=== PATIENT | male | born 1950 | race Caucasian/White ===

== ENCOUNTER 2018-05-18 16:13 | Observation (INO) ==
[2018-05-18] MEDS ORDERED: TUSSIONEX PENNKINETIC SUSP PO PRN (17:09)
--- NOTE | 2018-05-18 17:26 | DR.H&P ---
H&P - History & Physical for Day of: H&P Date: 05/18/18 - Chief Complaint Chief Complaint: SOB, COUGH, WHEEZING, CHEST PRESSURE - History of Present Illness History of Present Illness: PT 68 WM DIRECT ADMIT FROM DR JAUREGUI'S OFFICE WITH CO CP,SOB, COUGH AND WHEEZING, LOWER EXTREMITY REDNESS AND PAIN. PT HAS COPD AND TAKEN 2 ROUNDS OF ATBX ORAL AND HAD ROCEPHIN AND STEROID INJECTIONS IN THE OFFICE WITHOUT IMPROVEMENT. PT ALSO HAS BILATERAL LE EDEMA AND REDNESS. PT DENIES ANY HX OF CAD OR CHF. PT PPD SMOKER AND DAILY ETOH USE. - Past Medical History Past Medical History: COPD - Past Surgical History Surgical History: Cholecystectomy - Social History Does patient currently use any type of tobacco product: Yes Have you used tobacco products in the last 12 months: Yes Type of Tobacco Use: Cigarettes Does any household member use tobacco: Yes Alcohol Use: DAILY Drug Use: None - Medications Home Medications: No Known Drug Allergies Allergy (Verified 05/18/18 17:18) - Review of Systems Constitutional: Weakness Eyes: No Symptoms Reported ENT: No Symptoms Reported Respiratory: Shortness of Breath, SOB with Excertion, Sputum, Wheezing Cardiovascular: Chest Pain, Edema Gastrointestinal: No Symptoms Reported Genitourinary: No Symptoms Reported Musculoskeletal: Leg Pain Skin: Rash (REDNESS TO LEGS) Neurological: No Symptoms Reported - Physical Exam Vital Signs: Blood Pressure [Left Arm] 110/55 Blood Pressure [Right Arm] 126/75 Blood Pressure 138/77 Oriented: Normal Eyes: Normal Ear: Normal Nose: Normal Throat: Normal Respiratory: RLL Diminished, LLL Diminished Cardiovascular: Normal : Normal Auscultation: Bowel Sounds: Normal Palpation: Normal Tenderness: Normal Skin: Red (BILATERAL LOWER EXTREMITY REDNESS, TENDERNESS, EDEMA), Tender Musculoskeletal: Right, Left, Swelling, Tender Psychiatric: Anxiety Affect: Anxious Speech Pattern: Clear, Appropriate - Assessment/Plan (1) COPD exacerbation Status: Acute Plan: ADMIT, ICU STEP DOWN, PNEUMONIA PROTOCOL. BLOOD AND SPUTUM CULTURE COLLECTED ON ADMISSON. CXR, RESP CONSULT, SUPPLEMENTAL O2 PRN. CE AND EKG ON ADMISSION. SOLU MEDROL IV, CT CHEST WITH CONTRAST Q AM. WITHDRAWL PRECAUTIONS , PRN LIBRIUM. NICOTINE PATCH (2) SOB (shortness of breath) Status: Acute (3) Chest pain Status: Acute - Allergies Allergies/Adverse Reactions: Allergies Allergy/AdvReac Type Severity Reaction Status Date / Time No Known Drug Allergies Allergy Verified 05/18/18 17:18
[2018-05-18] MEDS ORDERED: NS 1/2 1000 ML IV 1,000 ML IV ONE (17:29)
[2018-05-18] MEDS ORDERED: ATARAX TAB 25 MG PO PRN (17:38)
[2018-05-18] MEDS ORDERED: LIBRIUM PO PRN (17:38)
[2018-05-18 17:40] LABS: BASOPHILS # (AUTO) 0.1 X10^3/uL (0.0-0.1); EOSINOPHILS # (AUTO) 0.1 x10^3/uL (0.0-0.2); EOSINOPHILS % (AUTO) 1.1 % (0.9-2.9); HEMOGLOBIN 17.4 g/dL (13.5-18.0); LYMPHOCYTES # (AUTO) 2.1 X10^3/uL (1.3-2.9); LYMPHOCYTES % (AUTO) 20.6 % (21.0-51.0); MEAN CORPUSCULAR HEMOGLOBIN 30.4 pg (27.0-34.0); MEAN CORPUSCULAR HGB CONC 34.2 g/dL (33.0-35.0); MEAN CORPUSCULAR VOLUME 89.1 fL (80.0-100.0); MEAN PLATELET VOLUME 8.7 fL (7.4-11.0); MONOCYTES # (AUTO) 0.8 x10^3/uL (0.3-0.8); MONOCYTES % (AUTO) 8.1 % (0.0-13.0); NEUTROPHILS # (AUTO) 7.2 x10^3/uL (2.2-4.8); NEUTROPHILS % (AUTO) 69.2 % (42.0-75.0); PLATELET COUNT 183 X10^3/uL (150.0-450.0); RED BLOOD COUNT 5.73 X10^6/uL (4.7-6.0); RED CELL DISTRIBUTION WIDTH 14.6 % (11.6-16.5); WHITE BLOOD COUNT 10.4 X10^3/uL (3.6-10.0)
[2018-05-18] MEDS: SOLU-Medrol 125 MG VIAL IVP SCH ×2 (17:50→21:35)
[2018-05-18] MEDS: LEVAQUIN PREMIX IV 750 MG 750 MG/150 ML BAG IV SCH (17:50)
[2018-05-18] MEDS: NS 1/2 1000 ML IV 1,000 ML IV SCH (17:50)
[2018-05-18 17:55] LABS: ALANINE AMINOTRANSFERASE 34 Units/L (12-78); ALBUMIN 3.6 g/dL (3.4-5.0); ALKALINE PHOSPHATASE 60 Units/L (46-116); ASPARTATE AMINO TRANSFERASE 25 Units/L (15-37); BLOOD UREA NITROGEN 19 mg/dL (7-18); CALCIUM 8.8 mg/dL (8.5-10.1); CARBON DIOXIDE 32.6 mmol/L (21-32); CHLORIDE 101 mmol/L (98-107); CREATININE 1.06 mg/dL (0.70-1.30); SODIUM 139 mmol/L (136-145); TOTAL PROTEIN 6.9 g/dL (6.4-8.2); eGFR NON BLACK RACES > 60 (>60)
[2018-05-18 18:08] VITALS: BMI 35.9
[2018-05-18 18:18] LABS: ABG BASE EXCESS 7.3 mmol/L (-2.0-2.0)
[2018-05-18 18:19] LABS: ABG ALLEN TEST POS; ABG HCO3 33.1 mmol/L (22-26)
[2018-05-18 18:22] LABS: CKMB % 2.6 % (<4); CREATINE KINASE 227 Units/L (39-308); TROPONIN I < 0.02 ng/mL (0-1.5)
--- NOTE | 2018-05-18 19:23 | RAD ---
HISTORY: Acute shortness of breath Study: Two-view chest Comparison: None Findings: The trachea is midline. The cardiac silhouette is unremarkable. The lungs demonstrate a right-sided effusion. Left lung appears clear.. The bony thorax is unremarkable. IMPRESSION: 1. Right-sided pleural. Reported By:
[2018-05-18] MEDS: ROBITUSSIN DM PO SCH (21:34)
[2018-05-18] MEDS: ZOSYN VIAL 4.5 GRAMS 4.5 G in NS 100 ML IV + SPIKE MINIBAG* 100 ML IV SCH ×2 (21:34→21:35)
[2018-05-18] MEDS: BROVANA IN SCH (21:49)
[2018-05-18] MEDS: PULMICORT NEB TX 0.5 MG NEB SCH (21:49)
[2018-05-18] MEDS: DUONEB 0.5 MG/3 MG NEB SCH (21:49)
[2018-05-18 22:05] LABS: BILIRUBIN,URINE NEGATIVE (NEGATIVE); BLOOD/HEMOGLOBIN,URINE 1+ (NEGATIVE); GLUCOSE, URINE NEGATIVE (NEGATIVE); KETONES,URINE NEGATIVE (NEGATIVE); LEUKOCYTE ESTERASE ,URINE 1+ (NEGATIVE); NITRITES,URINE NEGATIVE (NEGATIVE); PROTEIN,URINE 3+ (NEGATIVE); UROBILINOGEN,URINE NORMAL (NORMAL)
[2018-05-18 22:14] LABS: APPEARANCE,URINE SLIGHTLY HAZY (CLEAR); BACTERIA,URINE TRACE /HPF (NEGATIVE); COLOR,URINE YELLOW (YELLOW); RBC,URINE 0-2 /HPF (NONE SEEN); SQUAMOUS EPITHELIAL CELL,UR RARE /HPF (NEGATIVE)
[2018-05-18 22:15] LABS: AMORPHOUS SEDIMENT,UR TRACE /HPF (NEGATIVE); MUCUS,URINE FEW /HPF (NEGATIVE)
[2018-05-19] MEDS ORDERED: NS 1/2 1000 ML IV 1,000 ML IV ONE (00:59)
[2018-05-19] MEDS: DUONEB 0.5 MG/3 MG NEB SCH ×4 (01:30→12:05)
[2018-05-19] MEDS: ZOSYN VIAL 4.5 GRAMS 4.5 G in NS 100 ML IV + SPIKE MINIBAG* 100 ML IV SCH (05:29)
[2018-05-19] MEDS: SOLU-Medrol 125 MG VIAL IVP SCH (05:29)
[2018-05-19] MEDS: NS 1/2 1000 ML IV 1,000 ML IV SCH ×2 (05:30→07:28)
[2018-05-19 05:33] LABS: BASOPHILS % (AUTO) 0.2 % (0.2-1.0); HEMATOCRIT 50.6 % (42.0-54.0); HEMOGLOBIN 16.9 g/dL (13.5-18.0); LYMPHOCYTES # (AUTO) 0.6 X10^3/uL (1.3-2.9); LYMPHOCYTES % (AUTO) 7.5 % (21.0-51.0); MEAN CORPUSCULAR HEMOGLOBIN 29.9 pg (27.0-34.0); MEAN CORPUSCULAR HGB CONC 33.4 g/dL (33.0-35.0); MEAN CORPUSCULAR VOLUME 89.6 fL (80.0-100.0); MEAN PLATELET VOLUME 9.1 fL (7.4-11.0); MONOCYTES # (AUTO) 0 x10^3/uL (0.3-0.8); MONOCYTES % (AUTO) 0.4 % (0.0-13.0); NEUTROPHILS # (AUTO) 7.7 x10^3/uL (2.2-4.8); NEUTROPHILS % (AUTO) 91.9 % (42.0-75.0); PLATELET COUNT 172 X10^3/uL (150.0-450.0); RED BLOOD COUNT 5.64 X10^6/uL (4.7-6.0); RED CELL DISTRIBUTION WIDTH 14.3 % (11.6-16.5); WHITE BLOOD COUNT 8.4 X10^3/uL (3.6-10.0)
[2018-05-19 06:05] LABS: ALANINE AMINOTRANSFERASE 29 Units/L (12-78); ALBUMIN 3.2 g/dL (3.4-5.0); ALKALINE PHOSPHATASE 58 Units/L (46-116); ASPARTATE AMINO TRANSFERASE 20 Units/L (15-37); BLOOD UREA NITROGEN 20 mg/dL (7-18); CALCIUM 8.3 mg/dL (8.5-10.1); CARBON DIOXIDE 29.3 mmol/L (21-32); CHLORIDE 103 mmol/L (98-107); COR CA(FOR HYPOALB) 8.9 mg/dL (8.5-10.1); COR NA(FOR HYPERGLY) 139 mmol/L (136-145); CREATININE 1.01 mg/dL (0.70-1.30); SODIUM 138 mmol/L (136-145); TOTAL PROTEIN 6.7 g/dL (6.4-8.2); eGFR NON BLACK RACES > 60 (>60)
[2018-05-19 06:19] LABS: BAND NEUTROPHILS % 2 % (0-10); PLATELET MORPHOLOGY COMMENT NORMAL (NORMAL)
[2018-05-19] MEDS ORDERED: NS 100 ML IV 100 ML IV ONE (06:26)
--- NOTE | 2018-05-19 07:19 | CT ---
HISTORY: Acute shortness of breath Study: CT chest with contrast Comparison: Plain film 05/18/2018 Technique: Axial post-contrast images with coronal and sagittal reformats. Dose reduction procedures were used with mA/kv adjusted for body size. Findings: Examination of the mediastinum demonstrated no evidence for mediastinal masses, enlarged mediastinal adenopathy, or enlarged hilar adenopathy. No pleural effusions are identified. No chest wall or axill mandie abnormality is identified. Those portions of the upper abdominal organs visualized were within no rmal limits. There is a benign calcification in the dome of the right lobe of the liver. Examination of the lung brandt demonstrated mild interstitial lung changes to be present. No alveolar infiltrates , areas of consolidation, nodules, masses, peribronchial thickening, or bronchiectasis is identified. IMPRESSION: Mild nonspecific interstitial lung changes Reported By:
[2018-05-19] MEDS: LEVAQUIN PREMIX IV 750 MG 750 MG/150 ML BAG IV SCH (08:02)
[2018-05-19] MEDS: ROBITUSSIN DM PO SCH ×2 (08:02→13:01)
[2018-05-19] MEDS ORDERED: NICOTINE PATCH TD SCH (09:00)
[2018-05-19] MEDS: BROVANA IN SCH (09:21)
[2018-05-19] MEDS: PULMICORT NEB TX 0.5 MG NEB SCH (09:21)
[2018-05-19 13:01] VITALS: BP 134/69
== END 2018-05-19 13:50 | disposition home or self-care (01) ==
LOC: ICU
PROVIDERS: ADMIT Internal Medicine; ATTEND Internal Medicine
CPT/HCPCS: 36415; 36600; 71020; 71046; 71260; 80053; 80320; 81001; 82550; 82553; 82803; 84484; 85025; 87040; 87070; 87077; 87186; 87205; 93005; 93010; 93306; 94640; 94669; 97161; A4222; G0378; G6040; J1956; J2543; J2930; J7050; J7620; J7626

== ENCOUNTER 2020-02-13 10:31 | Inpatient (IN) ==
--- NOTE | 2020-02-13 13:54 | RAD ---
HISTORYShortness of breathSTUDYCHEST, 1 [id number]/06/2019FINDINGSThere is a port present on the right. The heart is within normal limits in size. The herlinda are normal. Lung brandt are free of acute infiltrates. A small right pleural effusion may be present. Bony thorax is unremarkable.IMPRESSIONNo acute infiltratesBlunt right costophrenic angle suggestive of a small right pleural effusionElectronically signed by: ANDREY NGUYEN (Feb 13, 2020 13:52:58)
[2020-02-13 14:17] LABS: BASOPHILS # (AUTO) 0.1 X10^3/uL (0.0-0.1); BASOPHILS % (AUTO) 1.1 % (0.2-1.0); EOSINOPHILS # (AUTO) 0.1 x10^3/uL (0.0-0.2); LYMPHOCYTES # (AUTO) 1.1 X10^3/uL (1.3-2.9); MONOCYTES # (AUTO) 0.9 x10^3/uL (0.3-0.8); NEUTROPHILS # (AUTO) 2.6 x10^3/uL (2.2-4.8); PLATELET COUNT 77 X10^3/uL (150.0-450.0)
[2020-02-13] MEDS: LOVENOX INJ 100 MG SYR SC SCH (14:18)
[2020-02-13 14:21] LABS: EOSINOPHILS % (AUTO) 1.9 % (0.9-2.9); HEMATOCRIT 44.8 % (42.0-54.0); HEMOGLOBIN 15.1 g/dL (13.5-18.0); LYMPHOCYTES % (AUTO) 23.5 % (21.0-51.0); MEAN CORPUSCULAR HEMOGLOBIN 31.1 pg (27.0-34.0); MEAN CORPUSCULAR HGB CONC 33.7 g/dL (33.0-35.0); MEAN CORPUSCULAR VOLUME 92.1 fL (80.0-100.0); MEAN PLATELET VOLUME 7.9 fL (7.4-11.0); MONOCYTES % (AUTO) 19.1 % (0.0-13.0); NEUTROPHILS % (AUTO) 54.4 % (42.0-75.0); RED BLOOD COUNT 4.86 X10^6/uL (4.7-6.0); RED CELL DISTRIBUTION WIDTH 19.2 % (11.6-16.5)
[2020-02-13 14:24] LABS: ALANINE AMINOTRANSFERASE 32 Units/L (12-78); ALBUMIN 3.3 g/dL (3.4-5.0); ALKALINE PHOSPHATASE 53 Units/L (46-116); ASPARTATE AMINO TRANSFERASE 29 Units/L (15-37); BLOOD UREA NITROGEN 11 mg/dL (7-18); CALCIUM 9.1 mg/dL (8.5-10.1); CARBON DIOXIDE 28.8 mmol/L (21-32); CHLORIDE 102 mmol/L (98-107); COR CA(FOR HYPOALB) 9.7 mg/dL (8.5-10.1); CREATININE 0.88 mg/dL (0.70-1.30); SODIUM 139 mmol/L (136-145); TOTAL PROTEIN 6.4 g/dL (6.4-8.2); eGFR NON BLACK RACES > 60 (>60)
[2020-02-13 14:33] LABS: WHITE BLOOD COUNT 5.7 X10^3/uL (3.6-10.0)
[2020-02-13 14:34] LABS: ANISOCYTOSIS SLIGHT; BAND NEUTROPHILS % 1 % (0-10); PLATELET MORPHOLOGY COMMENT NORMAL (NORMAL)
[2020-02-13] MEDS ORDERED: NORCO 5/325 MG TAB PO PRN (16:23)
--- NOTE | 2020-02-13 16:35 | DR.H&P ---
H&P - History & Physical for Day of: H&P Date: 02/13/20 - Chief Complaint Chief Complaint: right upper arm redness, swelling to AC and tender - History of Present Illness History of Present Illness: PT IS 70WM DIRECT ADMIT WITH NEW RIGHT UPPER EXTREMIY DVT, CONFIRMED ON US. PT HAS COLON CANCER AND SEEN AT [facility] ON TUESDAY WITH LABS AND CT SCANS WITH IV SITE TO R AC. PT CO SEVERE TENDERNESS TO RIGHT AC WITH INCREASED SWELLING AND REDNESS. PT ADMITTED FOR TREATMENT OF ACUTE DVT, PHLEBITIS. - Past Medical History Past Medical History: COPD Additional Medical History: COLON CANCER - Past Surgical History Surgical History: Cholecystectomy - Social History Does patient currently use any type of tobacco product: Yes Have you used tobacco products in the last 12 months: Yes Type of Tobacco Use: Cigarettes Does any household member use tobacco: No Alcohol Use: None Drug Use: None Risks, benefits, and alternatives of opioids discussed: No Prescription drug monitoring program results: PDMP reviewed and no concerns identified - Medications Home Medications: No Known Drug Allergies Allergy (Verified 06/01/19 09:14) CONTINUE taking the following medications budesonide-formoterol [Symbicort] 1 inh INHALATION BID 02/13/20 [History] gabapentin 100 mg PO BID 02/13/20 [History] hydrocodone-acetaminophen 1 tab PO Q4H PRN 02/13/20 [History] multivitamin [Tab-A-Joel] 1 tab PO DAILY 02/13/20 [History] sucralfate 10 ml PO ACHS 02/13/20 [History] - Review of Systems Constitutional: No Symptoms Reported Eyes: No Symptoms Reported ENT: No Symptoms Reported Respiratory: No Symptoms Reported Cardiovascular: No Symptoms Reported Gastrointestinal: No Symptoms Reported Genitourinary: No Symptoms Reported Musculoskeletal: Arm Pain Skin: Other (REDNESS TO RIGHT AC) Neurological: No Symptoms Reported - Physical Exam Vital Signs: Temperature 98.7 F Pulse Rate [Left Brachial] 94 Respiratory Rate 20 Blood Pressure [Left Arm] 110/55 Blood Pressure [Right Arm] 126/75 Blood Pressure 103/59 O2 Sat by Pulse Oximetry 96 Oriented: Normal Eyes: Normal Nose: Normal Throat: Normal Respiratory: RLL Diminished, LLL Diminished Cardiovascular: Normal : Normal Auscultation: Bowel Sounds: Normal Palpation: Normal Tenderness: Normal Skin: Red, Tender Musculoskeletal: Right, Arm Psychiatric: Normal Mood Description: Anxious Affect: Anxious Speech Pattern: Clear, Appropriate - Assessment/Plan (1) Arm DVT (deep venous thromboembolism), acute Status: Acute Plan: ADMIT, PAIN CONTROL. LOVENOX, ADMISSION LABS CBC CMP PT INR. CXR ON ADMISSION, CONFIRM HOME MEDICATION (2) Phlebitis and thrombophlebitis of deep veins of upper extremities Status: Acute - Allergies Allergies/Adverse Reactions: Allergies Allergy/AdvReac Type Severity Reaction Status Date / Time No Known Drug Allergies Allergy Verified 06/01/19 09:14
[2020-02-13] MEDS: NEURONTIN CAP 100 MG PO SCH ×2 (16:41→20:13)
[2020-02-13 16:45] VITALS: BMI 34.8
[2020-02-13] MEDS: FLOMAX PO SCH (17:42)
[2020-02-13] MEDS: CARAFATE ORAL SUSP PO SCH ×2 (17:42→20:13)
[2020-02-13] MEDS: DUONEB 0.5 MG/3 MG (3 mL) NEB SCH ×2 (18:14→21:00)
[2020-02-13] MEDS: PULMICORT NEB TX 0.5 MG NEB SCH (21:00)
[2020-02-14] MEDS: LOVENOX INJ 100 MG SYR SC SCH ×2 (02:52→13:01)
[2020-02-14 05:38] LABS: BASOPHILS % (AUTO) 1.1 % (0.2-1.0); EOSINOPHILS # (AUTO) 0.1 x10^3/uL (0.0-0.2); EOSINOPHILS % (AUTO) 2.6 % (0.9-2.9); HEMATOCRIT 41.4 % (42.0-54.0); HEMOGLOBIN 13.7 g/dL (13.5-18.0); LYMPHOCYTES # (AUTO) 0.9 X10^3/uL (1.3-2.9); LYMPHOCYTES % (AUTO) 32.7 % (21.0-51.0); MEAN CORPUSCULAR HGB CONC 33.1 g/dL (33.0-35.0); MEAN CORPUSCULAR VOLUME 93.8 fL (80.0-100.0); MEAN PLATELET VOLUME 8.3 fL (7.4-11.0); MONOCYTES # (AUTO) 0.6 x10^3/uL (0.3-0.8); MONOCYTES % (AUTO) 24.3 % (0.0-13.0); NEUTROPHILS % (AUTO) 39.3 % (42.0-75.0); PLATELET COUNT 89 X10^3/uL (150.0-450.0); RED BLOOD COUNT 4.42 X10^6/uL (4.7-6.0); RED CELL DISTRIBUTION WIDTH 19.4 % (11.6-16.5); WHITE BLOOD COUNT 2.6 X10^3/uL (3.6-10.0)
[2020-02-14 05:50] LABS: ALANINE AMINOTRANSFERASE 30 Units/L (12-78); ALKALINE PHOSPHATASE 50 Units/L (46-116); ASPARTATE AMINO TRANSFERASE 25 Units/L (15-37); BLOOD UREA NITROGEN 11 mg/dL (7-18); CALCIUM 8.7 mg/dL (8.5-10.1); CARBON DIOXIDE 29.5 mmol/L (21-32); CHLORIDE 104 mmol/L (98-107); COR CA(FOR HYPOALB) 9.5 mg/dL (8.5-10.1); CREATININE 1.02 mg/dL (0.70-1.30); SODIUM 140 mmol/L (136-145); eGFR NON BLACK RACES > 60 (>60)
[2020-02-14] MEDS: CARAFATE ORAL SUSP PO SCH ×4 (05:51→20:41)
[2020-02-14 06:13] LABS: BAND NEUTROPHILS % 1 % (0-10); PLATELET MORPHOLOGY COMMENT NORMAL (NORMAL)
[2020-02-14] MEDS: FLOMAX PO SCH (08:18)
[2020-02-14] MEDS: NEURONTIN CAP 100 MG PO SCH ×2 (08:18→20:42)
[2020-02-14] MEDS: DUONEB 0.5 MG/3 MG (3 mL) NEB SCH ×4 (09:23→21:15)
[2020-02-14] MEDS: PULMICORT NEB TX 0.5 MG NEB SCH ×2 (09:23→21:15)
[2020-02-14] MEDS ORDERED: NS 500 ML IV 500 ML IV PRN (17:18)
[2020-02-14] MEDS ORDERED: NS 100 ML IV + SPIKE MINIBAG* 100 ML IV ONE (17:19)
[2020-02-14] MEDS ORDERED: TEFLARO IV ONE (17:19)
[2020-02-14] MEDS ORDERED: NS 500 ML IV 500 ML IV ONE (17:19)
[2020-02-14] MEDS: TEFLARO 600 MG in NS 100 ML IV + SPIKE MINIBAG* 100 ML IV SCH ×2 (17:23→22:07)
[2020-02-14] MEDS: ELIQUIS PO SCH (20:41)
[2020-02-15] MEDS: LOVENOX INJ 100 MG SYR SC SCH (01:56)
[2020-02-15] MEDS: CARAFATE ORAL SUSP PO SCH ×2 (05:39→13:50)
[2020-02-15 05:53] LABS: BASOPHILS % (AUTO) 0.8 % (0.2-1.0); EOSINOPHILS # (AUTO) 0.1 x10^3/uL (0.0-0.2); EOSINOPHILS % (AUTO) 2.4 % (0.9-2.9); HEMATOCRIT 41.2 % (42.0-54.0); HEMOGLOBIN 13.7 g/dL (13.5-18.0); LYMPHOCYTES # (AUTO) 0.9 X10^3/uL (1.3-2.9); LYMPHOCYTES % (AUTO) 33.9 % (21.0-51.0); MEAN CORPUSCULAR HEMOGLOBIN 31.1 pg (27.0-34.0); MEAN CORPUSCULAR HGB CONC 33.3 g/dL (33.0-35.0); MEAN CORPUSCULAR VOLUME 93.3 fL (80.0-100.0); MEAN PLATELET VOLUME 8.5 fL (7.4-11.0); MONOCYTES # (AUTO) 0.6 x10^3/uL (0.3-0.8); MONOCYTES % (AUTO) 25.3 % (0.0-13.0); NEUTROPHILS % (AUTO) 37.6 % (42.0-75.0); PLATELET COUNT 103 X10^3/uL (150.0-450.0); RED BLOOD COUNT 4.42 X10^6/uL (4.7-6.0); WHITE BLOOD COUNT 2.6 X10^3/uL (3.6-10.0)
[2020-02-15 06:06] LABS: ALANINE AMINOTRANSFERASE 30 Units/L (12-78); ALBUMIN 2.9 g/dL (3.4-5.0); ALKALINE PHOSPHATASE 48 Units/L (46-116); ASPARTATE AMINO TRANSFERASE 22 Units/L (15-37); BLOOD UREA NITROGEN 11 mg/dL (7-18); CALCIUM 8.5 mg/dL (8.5-10.1); CARBON DIOXIDE 26.9 mmol/L (21-32); CHLORIDE 104 mmol/L (98-107); COR CA(FOR HYPOALB) 9.4 mg/dL (8.5-10.1); CREATININE 0.99 mg/dL (0.70-1.30); SODIUM 140 mmol/L (136-145); TOTAL PROTEIN 5.9 g/dL (6.4-8.2); eGFR NON BLACK RACES > 60 (>60)
[2020-02-15 06:48] LABS: PLATELET MORPHOLOGY COMMENT NORMAL (NORMAL)
[2020-02-15] MEDS: DUONEB 0.5 MG/3 MG (3 mL) NEB SCH (08:15)
[2020-02-15] MEDS: PULMICORT NEB TX 0.5 MG NEB SCH (08:15)
[2020-02-15] MEDS: NEURONTIN CAP 100 MG PO SCH (09:18)
[2020-02-15] MEDS: ELIQUIS PO SCH (09:18)
[2020-02-15] MEDS: TEFLARO 600 MG in NS 100 ML IV + SPIKE MINIBAG* 100 ML IV SCH (09:18)
[2020-02-15] MEDS: FLOMAX PO SCH (09:18)
[2020-02-15 13:31] VITALS: BP 120/64
== END 2020-02-15 13:45 | disposition home or self-care (01) | DRG 301 ==
LOC: MED/SURG 12:48
PROVIDERS: ADMIT Internal Medicine; ATTEND Internal Medicine
DX: Z92.21 Personal history of antineoplastic chemotherapy; I82.621 Acute embolism and thrombosis of deep veins of right upper extremity; I80.8 Phlebitis and thrombophlebitis of other sites; R60.0 Localized edema; J44.9 Chronic obstructive pulmonary disease, unspecified; Z85.038 Personal history of other malignant neoplasm of large intestine

== ENCOUNTER 2020-04-17 15:03 | Observation (INO) ==
[2020-04-17 15:14] VITALS: BMI 34.9
--- NOTE | 2020-04-17 16:21 | DR.WEAKNES ---
HPI Time Seen Time Seen by Provider: 04/17/20 16:21 Primary Care Physician Primary Care Physician: BROCK LITTLEJOHN HPI Comment HPI Comment: PATIENT IS 70YR OLD MALE IN ER WITH HISTORY OF HAVING SYNCOPAL EPISODE AT HOME WHILE SITTING DOWN AT HIS COMPUTOR. DENIES FEVER, CHEST PAIN OR COUGH OR CONGESTION. HE IS WEAK AND SLIGHTLY DIZZY. HEADACHE PRESENT. NO BLURRED VISION. HISTORY OF COPD. Complaints Chief Complaint Doctors Comments: SITTING AT COMPUTOR , STARTED SHAKING AND THEN PASS OUT. Chief Complaint:: PATIENT STATES HE WAS SITTING AT THE COMPUTER AND STARTED SH AKING AND BLACKED OUT. PATIENT STATES HE CALLED HIS PCP AND THEY INSTRUCTED HIM TO COME TO THE ED FOR POSSIBLE STROKE. PT STATES HE HAS A LIGHT HEADACHE. Reviewed Nurses Notes Reviewed: Yes Source History Provided: Patient Mode of Arrival Mode of Arrival: Ambulatory Timing Onset of Chief Complaint: 04/17/20 Since onset, symptoms are:: Unchanged Symptom Onset: Known Duration Duration: Since Onset Duration: Minutes Context Onset: At rest Symptoms: Weakness History of: None Stroke Symptoms: Dizziness Location Weakness Location: Generalized Associated Signs and Symptoms Associated Signs and Symptoms: None PMH PMH Past Medical History: Yes Past Medical History: COPD Past Medical History Comment: BLOOD CLOTS COLON CANCER Past Surgical History: Yes Surgical History: Cholecystectomy, Tonsillectomy and Other Family History History of Family Medical Conditions: Yes Family Medical History: [place] Social History Does patient currently use any type of tobacco product: Yes Have you used tobacco products in the last 12 months: Yes Type of Tobacco Use: Cigarettes Does any household member use tobacco: No Alcohol Use: None Do you use any recreational Drugs:: No Lives With: Family and Significant Other Lives Where: Home Travel Risk Coronavirus risk:travel/contact w/high risk person: No Has patient experienced Coronavirus symptoms: No Infectious screening Have you traveled outside the country in the last 6 months?: No Isolation: Standard ROS Review of Systems Constitutional: See HPI, Fatigue and Loss of Appetite; negative Fever Eyes: No Symptoms Reported and See HPI; negative Blurred Vision and Diplopia ENTM: No Symptoms Reported and See HPI; negative Ear Pain, Nose Discharge, Nose Congestion and Throat Pain Respiratoy: See HPI, Short of Breath and Wheezing; negative Moist Cough Cardiovascular: No Symptoms Reported and See HPI; negative Chest Pain, Edema and Palpitations Gastrointestinal/Abdominal: No Symptoms Reported and See HPI; negative Abdominal Pain, Diarrhea, Nausea and Vomiting Genitourinary: No Symptoms Reported and See HPI; negative Dysuria, Frequency and Hematuria Neurological: See HPI, Headache, Weakness and Dizziness; negative Numbness and Speech Problem Musculoskeletal: No Symptoms Reported, See HPI and Back Pain; negative Chest wall Integumentary: No Symptoms Reported, See HPI, Change in Color and Juandice Hematologic/Lymphatic: No Symptoms Reported, See HPI, Easy Bleeding and Swollen Glands Endocrine: No Symptoms Reported and See HPI; negative Increased Thirst and Increased Urine Psychiatric: No Symptoms Reported and See HPI All Other Systems: Reviewed and Negative PE Vital Signs Vitals: Temperature 97.8 F Pulse Rate [Apical] 71 Pulse Rate 74 Respiratory Rate 18 Blood Pressure [Left Arm] 133/78 Blood Pressure 133/78 O2 Sat by Pulse Oximetry 91 General Limitations: No Limitations General Appearance: Alert and In No Apparent Distress Head Head Exam: Normal Inspection, Atraumatic and Normocephalic Head Exam Physical: Other (NONE NOTED.) Eyes Eye exam: Normal Appearance and PERRL; negative Scleral Icterus and Conjunctival Injection Eyelids: Normal Inspection: Bilateral Pupils: Regular, Round: Bilateral Sclera/Conjunctival: Normal Inspection: Bilateral Anterior Chamber: Normal Inspection: Bilateral ENT ENT Exam: Normal Exam, Normal Oropharynx, Normal External Ear Exam and TM's Nor mal Bilaterally Mouth Exam: Normal Inspection Throat Exam: Normal Inspection; negative Tonsillar Erythema, Tonsillomegaly and Tonsillar Exudate Neck Neck Exam: Normal Inspection and Trachea Midline; negative Tenderness and Lymphadenopathy Chest Chest Inspection: Normal Inspection and Symmetric Chest Wall Rise; negative Tenderness Respiratory Respiratory Exam: Normal Lung Sounds Bilat; negative Accessory Muscle Use, Chest Wall Tenderness and Respiratory Distress Respiratory Exam: Bilateral: Clear to Auscultation Cardiovascular Cardiovascular Exam: Regular Rate, Normal Rhythm and Normal Heart Sounds; negative Systolic Murmur and Diastolic Murmur Abdominal Exam Abdominal Exam: Normal Inspection, Normal Bowel Sounds and Soft; negative Tenderness Extremities Extremities Exam: Normal Inspection and Normal Capillary Refill; negative Tend erness and Calf Tenderness Back Back Exam: Normal Inspection; negative (R) CVA Tenderness, (L) CVA Tenderness and Paraspinal Tenderness Neurologic Neurological Exam: Alert, Oriented X3 and CN II-XII Intact; negative Motor Sensory Deficit Patient Oriented To: Person, Place and Time Speech: Fluid Speech and Receptive Aphasia Cranial Nerve Exam: EOM Function (II, III, IV, ): Normal, Facial Sensation (V): Normal, Facial Palsy (VII): Normal, Gag reflex (XI): Normal, Spinal Accessory Function (XI): Normal and Tongue Deviation: Normal Motor Strength - LUE: 5/5 Motor Strength - RUE: 5/5 Motor Strength - LLE: 5/5 Motor Strength - RLE: 5/5 Upper Motor Neuron Exam: Babinski Sign: Normal DTR: brachioradialis (L): 2+ and brachioradialis (R): 2+ Psychiatric Psychiatric Exam: Normal Affect and Normal Mood Skin Skin Exam: Warm, Dry, Intact and Normal Color MDM Additional Information Obtained Additional Information Obtained From: Old Records Differential Diagnosis Differential Diagnosis: CVA, Electrolyte Disorder, Hypoglycemia, Mass Lesion, TIA and Other COURSE Treatment Treatment: SEE ORDERS. Education/Counseling Education/Counseling: Patient Educated On: Diagnosis and Needs for Follow Up ROR Labs Reviewed Result Diagrams: 04/18/20 04:17 04/18/20 04:17 Laboratory: WBC 6.2 X10^3/uL (3.6-10.0) 04/17/20 16:45 RBC 5.13 X10^6/uL (4.7-6.0) 04/17/20 16:45 Hgb 15.4 g/dL (13.5-18.0) 04/17/20 16:45 Hct 47.5 % (42.0-54.0) 04/17/20 16:45 MCV 92.5 fL (80.0-100.0) 04/17/20 16:45 MCH 30.0 pg (27.0-34.0) 04/17/20 16:45 MCHC 32.5 g/dL (33.0-35.0) L 04/17/20 16:45 RDW 14.7 % (11.6-16.5) 04/17/20 16:45 Plt Count 159 X10^3/uL (150.0-450.0) 04/17/20 16:45 MPV 8.6 fL (7.4-11.0) 04/17/20 16:45 Neut % (Auto) 70.6 % (42.0-75.0) 04/17/20 16:45 Lymph % (Auto) 16.4 % (21.0-51.0) L 04/17/20 16:45 Talbot % (Auto) 10.6 % (0.0-13.0) 04/17/20 16:45 Eos % (Auto) 1.5 % (0.9-2.9) 04/17/20 16:45 Baso % (Auto) 0.9 % (0.2-1.0) 04/17/20 16:45 Neut # (Auto) 4.3 x10^3/uL (2.2-4.8) 04/17/20 16:45 Lymph # (Auto) 1.0 X10^3/uL (1.3-2.9) L 04/17/20 16:45 Talbot # (Auto) 0.6 x10^3/uL (0.3-0.8) 04/17/20 16:45 Eos # (Auto) 0.1 x10^3/uL (0.0-0.2) 04/17/20 16:45 Baso # (Auto) 0.1 X10^3/uL (0.0-0.1) 04/17/20 16:45 Absolute Nucleated RBC 0.0 /100WBC 04/17/20 16:45 Sodium 138 mmol/L (136-145) 04/17/20 16:45 Corrected Sodium TNP 04/17/20 16:45 Potassium 4.8 mmol/L (3.5-5.1) 04/17/20 16:45 Chloride 102 mmol/L (98-107) 04/17/20 16:45 Carbon Dioxide 29.1 mmol/L (21-32) 04/17/20 16:45 BUN 13 mg/dL (7-18) 04/17/20 16:45 Creatinine 0.51 mg/dL (0.70-1.30) L 04/17/20 16:45 Est GFR (MDRD) Af Amer > 60 (>60) 04/17/20 16:45 Est GFR (MDRD) Non-Af > 60 (>60) 04/17/20 16:45 Glucose 86 mg/dL (65-99) 04/17/20 16:45 Calcium 9.1 mg/dL (8.5-10.1) 04/17/20 16:45 Corrected Calcium TNP 04/17/20 16:45 Total Bilirubin 0.30 mg/dL (0.2-1.0) 04/17/20 16:45 AST 27 Units/L (15-37) 04/17/20 16:45 ALT 28 Units/L (12-78) 04/17/20 16:45 Alkaline Phosphatase 64 Units/L (46-116) 04/17/20 16:45 Creatine Kinase 337 Units/L (39-308) H 04/17/20 20:56 CK-MB (CK-2) 9.8 ng/mL (0-4.0) H* 04/17/20 20:56 CK/CKMB % Calc 2.9 % (<4) 04/17/20 20:56 Troponin I < 0.02 ng/mL (0-1.5) 04/17/20 20:56 Total Protein 7.0 g/dL (6.4-8.2) 04/17/20 16:45 Albumin 3.4 g/dL (3.4-5.0) 04/17/20 16:45 Globulin 3.6 g/dL (2.5-4.5) 04/17/20 16:45 Albumin/Globulin Ratio 0.9 Ratio (1.1-2.1) L 04/17/20 16:45 SARS-CoV-2 (PCR) Negative (NEGATIVE) 04/17/20 20:31 Opioid Opioid Risk Tool Age (Philip box if 16-45): No History of Preadolescent Sexual Abuse: No Total: 0 Total Score Risk Category: Low Risk Copyright: [facility] predicting aberrant behaviors Diagnosis Discharge Problem: Abnormal cardiac enzyme level, Abnormal EKG Episode of syncope Qualifiers: Syncope type: unspecified Qualified Code(s): R55 - Syncope and collapse Instructions Instructions: Syncope, [id number] Forms: Excuse From Work or School Precautions for COVID19 Patient Portal Social Distancing
--- NOTE | 2020-04-17 16:47 | RAD ---
HISTORYCPSTUDSIXTO RIVERA/LAT [id number]/29/2020FINDINGSThe trachea is midline. The cardiac silhouette is stable. Right-sided chest port unchanged. Hypoventilatory exam with chronic interstitial markings and no acute focal airspace disease.. The bony thorax is unremarkable.IMPRESSIONNo acute cardiopulmonary disease.Electronically signed by: ANDREY NGUYEN (Apr 17, 2020 16:46:34)
--- NOTE | 2020-04-17 16:51 | CT ---
HISTORY: Mental status changeStudy: CT brain without contrastComparison: NoneTechnique:Multiple axial images of the brain were obtained from the skull base to the vertex without administration of IV contrast. Automated dose control was utilized.Findings:The ventricles are borderline enlarged with diffuse mild prominence of the cortical sulci. There is mild periventricular low density bilaterally. No intracranial hemorrhage or edema is seen. There is no extra-axial fluid collection or mass. The bones are intact.IMPRESSION:Mild atrophy and mild chronic microischemic changes scattered in the deep white matter with no acute abnormality seen.Electronically signed by: JOSSE GREEN (Apr 17, 2020 16:50:01)
[2020-04-17 17:34] LABS: BASOPHILS # (AUTO) 0.1 X10^3/uL (0.0-0.1); BASOPHILS % (AUTO) 0.9 % (0.2-1.0); EOSINOPHILS # (AUTO) 0.1 x10^3/uL (0.0-0.2); EOSINOPHILS % (AUTO) 1.5 % (0.9-2.9); HEMATOCRIT 47.5 % (42.0-54.0); HEMOGLOBIN 15.4 g/dL (13.5-18.0); LYMPHOCYTES % (AUTO) 16.4 % (21.0-51.0); MEAN CORPUSCULAR HGB CONC 32.5 g/dL (33.0-35.0); MEAN CORPUSCULAR VOLUME 92.5 fL (80.0-100.0); MEAN PLATELET VOLUME 8.6 fL (7.4-11.0); MONOCYTES # (AUTO) 0.6 x10^3/uL (0.3-0.8); MONOCYTES % (AUTO) 10.6 % (0.0-13.0); NEUTROPHILS # (AUTO) 4.3 x10^3/uL (2.2-4.8); NEUTROPHILS % (AUTO) 70.6 % (42.0-75.0); PLATELET COUNT 159 X10^3/uL (150.0-450.0); RED BLOOD COUNT 5.13 X10^6/uL (4.7-6.0); RED CELL DISTRIBUTION WIDTH 14.7 % (11.6-16.5); WHITE BLOOD COUNT 6.2 X10^3/uL (3.6-10.0)
[2020-04-17 17:45] LABS: BLOOD UREA NITROGEN 13 mg/dL (7-18); CALCIUM 9.1 mg/dL (8.5-10.1); CARBON DIOXIDE 29.1 mmol/L (21-32); CHLORIDE 102 mmol/L (98-107); CREATININE 0.51 mg/dL (0.70-1.30); SODIUM 138 mmol/L (136-145); eGFR NON BLACK RACES > 60 (>60)
[2020-04-17 18:09] LABS: ALANINE AMINOTRANSFERASE 28 Units/L (12-78); ALBUMIN 3.4 g/dL (3.4-5.0); ALKALINE PHOSPHATASE 64 Units/L (46-116); ASPARTATE AMINO TRANSFERASE 27 Units/L (15-37); CREATINE KINASE 303 Units/L (39-308)
[2020-04-17 18:10] LABS: CKMB % 2.9 % (<4)
[2020-04-17 18:13] LABS: CREATINE KINASE MB 8.8 ng/mL (0-4.0)
[2020-04-17 22:21] LABS: CKMB % 2.9 % (<4); CREATINE KINASE 337 Units/L (39-308); TROPONIN I < 0.02 ng/mL (0-1.5)
[2020-04-17 22:22] LABS: CREATINE KINASE MB 9.8 ng/mL (0-4.0)
[2020-04-18] MEDS ORDERED: NS 1000 ML 1,000 ML IV SCH (02:34)
[2020-04-18] MEDS ORDERED: NS 1000 ML 1,000 ML ONE (03:52)
[2020-04-18 05:45] LABS: BASOPHILS % (AUTO) 0.6 % (0.2-1.0); EOSINOPHILS # (AUTO) 0.1 x10^3/uL (0.0-0.2); EOSINOPHILS % (AUTO) 1.8 % (0.9-2.9); HEMATOCRIT 45.5 % (42.0-54.0); LYMPHOCYTES # (AUTO) 0.8 X10^3/uL (1.3-2.9); LYMPHOCYTES % (AUTO) 12.6 % (21.0-51.0); MEAN CORPUSCULAR HEMOGLOBIN 30.4 pg (27.0-34.0); MEAN CORPUSCULAR HGB CONC 33.1 g/dL (33.0-35.0); MEAN CORPUSCULAR VOLUME 91.9 fL (80.0-100.0); MEAN PLATELET VOLUME 8.5 fL (7.4-11.0); MONOCYTES # (AUTO) 0.7 x10^3/uL (0.3-0.8); MONOCYTES % (AUTO) 11.4 % (0.0-13.0); NEUTROPHILS # (AUTO) 4.5 x10^3/uL (2.2-4.8); NEUTROPHILS % (AUTO) 73.6 % (42.0-75.0); PLATELET COUNT 187 X10^3/uL (150.0-450.0); RED BLOOD COUNT 4.94 X10^6/uL (4.7-6.0); RED CELL DISTRIBUTION WIDTH 14.6 % (11.6-16.5); WHITE BLOOD COUNT 6.1 X10^3/uL (3.6-10.0)
[2020-04-18 06:40] LABS: ALANINE AMINOTRANSFERASE 26 Units/L (12-78); ALBUMIN 3.3 g/dL (3.4-5.0); ALKALINE PHOSPHATASE 62 Units/L (46-116); ASPARTATE AMINO TRANSFERASE 22 Units/L (15-37); BLOOD UREA NITROGEN 10 mg/dL (7-18); CALCIUM 9.3 mg/dL (8.5-10.1); CARBON DIOXIDE 29.6 mmol/L (21-32); CHLORIDE 102 mmol/L (98-107); CHOL/HDL RATIO 3.5 (0.0-5.0); CHOLESTEROL 194 mg/dL (0-200); CKMB % 2.6 % (<4); COR CA(FOR HYPOALB) 9.9 mg/dL (8.5-10.1); CREATINE KINASE 312 Units/L (39-308); CREATININE 0.83 mg/dL (0.70-1.30); HDL CHOLESTEROL 55 mg/dL (40-60); MAGNESIUM 1.9 mg/dL (1.7-2.9); SODIUM 138 mmol/L (136-145); TOTAL PROTEIN 6.8 g/dL (6.4-8.2); TRIGLYCERIDES 57 mg/dL (0-150); TROPONIN I < 0.02 ng/mL (0-1.5); eGFR NON BLACK RACES > 60 (>60)
[2020-04-18] MEDS ORDERED: NORCO 5/325 MG TAB PO PRN (07:14)
[2020-04-18] MEDS ORDERED: XOPENEX 1.25 MG/3 ML NEBULE NEB SCH (07:45)
[2020-04-18] MEDS: FLOMAX PO SCH ×2 (08:20→09:24)
[2020-04-18] MEDS ORDERED: PATIENT'S HOME MEDICATION (Budesonide-Formoterol 1 INH) IN SCH (09:00)
[2020-04-18] MEDS ORDERED: PULMICORT NEB TX 0.5 MG NEB SCH (09:00)
[2020-04-18] MEDS ORDERED: ELIQUIS PO SCH (09:00)
[2020-04-18] MEDS ORDERED: NEURONTIN CAP 100 MG PO SCH (09:00)
[2020-04-18 09:37] LABS: ABG HCO3 34.2 mmol/L (22-26)
[2020-04-18 09:38] LABS: ABG ALLEN TEST POS
--- NOTE | 2020-04-18 11:41 | MRI ---
HISTORYTIA, RO CVASTUDYBRAIN W/O CONCOMPARISONCT yesterdayTECHNIQUEMultiplanar multi-sequence MRI of the brain was obtained utilizing standard departmental protocol. Sagittal and axial T1 weighted images were obtained. Axial T2 and flair weighted images were performed as well. Axial diffusion weighted and ADC trace mapping was performed.FINDINGSThe midline structures appear unremarkable. The evaluation of the brain parenchyma demonstrates no abnormal signal characteristics to suggest intraparenchymal mass or hemorrhage. No extra-axial fluid collections are observed. The ventricular system appears symmetric and nondilated. The CP angle is normal in its appearance without brainstem mass or evidence for acoustic neuroma. The flow voids on both T1 and T2 weighted imaging appear unremarkable. Evaluation of the diffusion weighted imaging does not demonstrate abnormal signal characteristics to suggest acute ischemic change. Mild small vessel ischemic changes are noted in the periventricular white matter. The extracranial structures are unremarkable.IMPRESSIONMild small vessel ischemic changes with no evidence for acute/subacute stroke.Electronically signed by: SHIRLEY CORRALES (Apr 18, 2020 11:40:39)
[2020-04-18 13:05] VITALS: BP 108/54
--- NOTE | 2020-04-18 13:07 | VAS ---
HISTORYCAROTID STENOSISSTUDYCAROTID USCOMPARISONNoneTECHNIQUEMultiple treadwell scale and color flow Doppler images of the right and left carotid arterial system were obtained. The vertebral arterial system was evaluated as well.FINDINGSNormal color flow Doppler is seen throughout the right and left carotid arterial system. Scattered atherosclerotic changes are seen. No hemodynamically significant stenosis is seen based on velocity criteria. Right vertebral artery shows antegrade flow. Left vertebral artery was not seen..IMPRESSIONNo hemodynamically significant stenosis by Doppler criteria. Left vertebral artery not visible on this exam.Electronically signed by: Wu Gibbs (Apr 18, 2020 13:06:43)
[2020-04-18 14:41] LABS: CKMB % 2.3 % (<4); CREATINE KINASE 266 Units/L (39-308); TROPONIN I < 0.02 ng/mL (0-1.5)
== END 2020-04-18 15:00 | disposition home or self-care (01) ==
LOC: OBS 15:03 → ER 15:03 → OBS 23:48
PROVIDERS: ADMIT Family Medicine; ATTEND Internal Medicine
CPT/HCPCS: 36415; 36600; 70450; 70551; 71020; 71046; 80053; 80061; 82550; 82553; 82803; 83735; 84484; 85025; 85610; 85730; 87635; 93005; 93880; 94640; 94760; 99284; G0378; J7030; J7626

== ENCOUNTER 2020-07-29 21:31 | Inpatient (IN) ==
[2020-07-29 21:44] LABS: ABG BASE EXCESS 6.3 mmol/L (-2.0-2.0)
[2020-07-29] MEDS ORDERED: SOLU-Medrol 125 MG VIAL IVP ONE (21:46)
[2020-07-29] MEDS ORDERED: DUONEB 0.5 MG/3 MG (3 mL) NEB ONE ×2 (21:46→21:52)
--- NOTE | 2020-07-29 21:59 | DR.SOBA ---
HPI Time Seen Time Seen by Provider: 07/29/20 21:36 Primary Care Physician Primary Care Physician: EDY TAO Complaints Chief Complaint Doctors Comments: dyspnea x 1 month, Hx of copd and tobacco abuse Chief Complaint:: PT IN ED VIA WHEELCHAIR WITH C/O UNABLE TO BREATHE. COVID-19 Coronavirus risk:travel/contact w/high risk person: No Has patient experienced Coronavirus symptoms: Yes Coronavirus symptoms experienced: Coughing and Shortness of Breath Source History Provided: Patient Mode of Arrival Mode of Arrival: Wheelchair Timing Onset of Chief Complaint: 07/29/20 Duration Duration: Months Context Onset:: At Rest and With Light Exertion PE Risk Factors:: None History of:: COPD and DVT/PE Prehospital Care:: None Modifying Factors Worsens:: Exertion and Other (smoking) Improves:: Inhaler Associated Signs and Symptoms Associated Signs and Symptoms: Wheeze and Leg Swelling (chronic) If Chest Pain Quality: denies Sharp, Stabbing, Squeezing, Pressure like, Heavy, Crushing, Burning, Aching, Pleuritic and Other If Cough Cough: Nonproductive PMH PMH Past Medical History: Yes Past Medical History: COPD Past Medical History Comment: COLORECTAL CANCER 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 Past Surgical History: Yes Surgical History: Bowel Resection, Ortho Surgery and Tonsillectomy Past Surgical History Comment: BACK COLORECTAL Family History History of Family Medical Conditions: Yes Family Medical History: [place] Social History Does patient currently use any type of tobacco product: Yes Have you used tobacco products in the last 12 months: Yes Type of Tobacco Use: Cigarettes Does any household member use tobacco: No Alcohol Use: None Do you use any recreational Drugs:: No Lives With: Family Lives Where: Home Travel Risk Coronavirus risk:travel/contact w/high risk person: No Has patient experienced Coronavirus symptoms: Yes Coronavirus symptoms experienced: Coughing and Shortness of Breath Infectious screening In the last 2 months have you had wt loss of >10#?: NO Have you had fever, night sweats or hemotysis?: No Have you traveled outside the country in the last 6 months?: No Isolation: Droplet ROS Review of Systems Constitutional: Weakness Eyes: No Symptoms Reported ENTM: No Symptoms Reported Respiratoy: Non-Productive Cough, Short of Breath and Wheezing Gastrointestinal/Abdominal: No Symptoms Reported Genitourinary: No Symptoms Reported Neurological: No Symptoms Reported Musculoskeletal: No Symptoms Reported Integumentary: No Symptoms Reported Endocrine: No Symptoms Reported Psychiatric: Depression All Other Systems: Reviewed and Negative PE Vital Signs Vitals: Temperature 98.1 F Pulse Rate 84 Respiratory Rate 16 Blood Pressure [Left Arm] 108/54 Blood Pressure 123/56 O2 Sat by Pulse Oximetry 88 General Limitations: No Limitations General Appearance: Alert and In No Apparent Distress Head Head Exam: Normal Inspection, Atraumatic and Normocephalic Eyes Eye exam: Normal Appearance and EOMI ENT ENT Exam: Normal Exam and Normal Oropharynx Neck Neck Exam: Normal Inspection, Full ROM and Trachea Midline Chest Chest Inspection: Normal Inspection and Symmetric Chest Wall Rise Respiratory Respiratory Exam: negative Accessory Muscle Use Respiratory Exam: Bilateral: Wheezing and Bilateral: Decreased Breath Sounds, Upper: Wheezing and Lower: Wheezing and Lower: Decreased Breath Sounds Cardiovascular Cardiovascular Exam: Regular Rate and Normal Rhythm Abdominal Exam Abdominal Exam: Normal Inspection, Normal Bowel Sounds and Soft Extremities Extremities Exam: Normal Inspection and Full ROM Back Back Exam: Normal Inspection and Full ROM Neurologic Neurological Exam: Alert, Oriented X3 and CN II-XII Intact Psychiatric Psychiatric Exam: Flat Affect Skin Skin Exam: Pallor ROR Labs Reviewed Result Diagrams: 07/29/20 21:55 07/29/20 21:55 Laboratory: WBC 6.5 X10^3/uL (3.6-10.0) 07/29/20 21:55 RBC 5.34 X10^6/uL (4.7-6.0) 07/29/20 21:55 Hgb 15.4 g/dL (13.5-18.0) 07/29/20 21:55 Hct 46.3 % (42.0-54.0) 07/29/20 21:55 MCV 86.7 fL (80.0-100.0) 07/29/20 21:55 MCH 28.9 pg (27.0-34.0) 07/29/20 21:55 MCHC 33.4 g/dL (33.0-35.0) 07/29/20 21:55 RDW 15.0 % (11.6-16.5) 07/29/20 21:55 Plt Count 221 X10^3/uL (150.0-450.0) 07/29/20 21:55 MPV 7.4 fL (7.4-11.0) 07/29/20 21:55 Neut % (Auto) 67.1 % (42.0-75.0) 07/29/20 21:55 Lymph % (Auto) 19.0 % (21.0-51.0) L 07/29/20 21:55 [place] % (Auto) 11.5 % (0.0-13.0) 07/29/20 21:55 Eos % (Auto) 1.7 % (0.9-2.9) 07/29/20 21:55 Baso % (Auto) 0.7 % (0.2-1.0) 07/29/20 21:55 Neut # (Auto) 4.4 x10^3/uL (2.2-4.8) 07/29/20 21:55 Lymph # (Auto) 1.2 X10^3/uL (1.3-2.9) L 07/29/20 21:55 [place] # (Auto) 0.7 x10^3/uL (0.3-0.8) 07/29/20 21:55 Eos # (Auto) 0.1 x10^3/uL (0.0-0.2) 07/29/20 21:55 Baso # (Auto) 0.0 X10^3/uL (0.0-0.1) 07/29/20 21:55 Absolute Nucleated RBC 0.0 /100WBC 07/29/20 21:55 Sample Site Rra 07/29/20 22:58 ABG pH 7.390 (7.35-7.45) 07/29/20 22:58 ABG pCO2 54.0 mmHg (35.0-45.0) H* 07/29/20 22:58 ABG pO2 99.0 mmHg (80.0-100.0) 07/29/20 22:58 ABG HCO3 32.7 mmol/L (22-26) H* 07/29/20 22:58 ABG O2 Saturation 98.0 % (90-100) 07/29/20 22:58 ABG Base Excess 6.3 mmol/L (-2.0-2.0) H 07/29/20 22:58 Kris Test Pos 07/29/20 22:58 A-a Gradient 90.0 mmHg 07/29/20 22:58 FiO2 36.0 07/29/20 22:58 Blood Gas Comments Pt halima well eb 07/29/20 22:58 Sodium 144 mmol/L (136-145) 07/29/20 21:55 Corrected Sodium 145 mmol/L (136-145) 07/29/20 21:55 Potassium 3.7 mmol/L (3.5-5.1) 07/29/20 21:55 Chloride 103 mmol/L (98-107) 07/29/20 21:55 Carbon Dioxide 32.2 mmol/L (21-32) H 07/29/20 21:55 BUN 13 mg/dL (7-18) 07/29/20 21:55 Creatinine 1.06 mg/dL (0.70-1.30) 07/29/20 21:55 Est GFR (MDRD) Af Amer > 60 (>60) 07/29/20 21:55 Est GFR (MDRD) Non-Af > 60 (>60) 07/29/20 21:55 Glucose 131 mg/dL (65-99) H 07/29/20 21:55 Calcium 9.1 mg/dL (8.5-10.1) 07/29/20 21:55 Corrected Calcium 9.7 mg/dL (8.5-10.1) 07/29/20 21:55 Magnesium 2.0 mg/dL (1.7-2.9) 07/29/20 21:55 Total Bilirubin 0.30 mg/dL (0.2-1.0) 07/29/20 21:55 AST 31 Units/L (15-37) 07/29/20 21:55 ALT 30 Units/L (12-78) 07/29/20 21:55 Alkaline Phosphatase 57 Units/L (46-116) 07/29/20 21:55 Creatine Kinase 510 Units/L (39-308) H 07/29/20 21:55 CK-MB (CK-2) 17.0 ng/mL (0-4.0) H* 07/29/20 21:55 CK/CKMB % Calc 3.3 % (<4) 07/29/20 21:55 Troponin I < 0.02 ng/mL (0-1.5) 07/29/20 21:55 B-Natriuretic Peptide 54.2 pg/mL (0-79) 07/29/20 21:55 Total Protein 7.2 g/dL (6.4-8.2) 07/29/20 21:55 Albumin 3.2 g/dL (3.4-5.0) L 07/29/20 21:55 Globulin 4.0 g/dL (2.5-4.5) 07/29/20 21:55 Albumin/Globulin Ratio 0.8 Ratio (1.1-2.1) L 07/29/20 21:55 EKG Rate: 84 [place]: Normal Rhythm: NSR Block: None Hypertrophy: LAE ST: Ant (boderline ST changes) Opioid Opioid Risk Tool Age (Philip box if 16-45): No History of Preadolescent Sexual Abuse: No Total: 0 Total Score Risk Category: Low Risk Copyright: Jose Miguel FAN predicting aberrant behaviors
[2020-07-29] MEDS ORDERED: SOLU-Medrol 125 MG VIAL ONE (22:02)
[2020-07-29 22:05] LABS: BASOPHILS % (AUTO) 0.7 % (0.2-1.0); EOSINOPHILS # (AUTO) 0.1 x10^3/uL (0.0-0.2); EOSINOPHILS % (AUTO) 1.7 % (0.9-2.9); HEMATOCRIT 46.3 % (42.0-54.0); HEMOGLOBIN 15.4 g/dL (13.5-18.0); LYMPHOCYTES # (AUTO) 1.2 X10^3/uL (1.3-2.9); MEAN CORPUSCULAR HEMOGLOBIN 28.9 pg (27.0-34.0); MEAN CORPUSCULAR HGB CONC 33.4 g/dL (33.0-35.0); MEAN CORPUSCULAR VOLUME 86.7 fL (80.0-100.0); MEAN PLATELET VOLUME 7.4 fL (7.4-11.0); MONOCYTES # (AUTO) 0.7 x10^3/uL (0.3-0.8); MONOCYTES % (AUTO) 11.5 % (0.0-13.0); NEUTROPHILS # (AUTO) 4.4 x10^3/uL (2.2-4.8); NEUTROPHILS % (AUTO) 67.1 % (42.0-75.0); PLATELET COUNT 221 X10^3/uL (150.0-450.0); RED BLOOD COUNT 5.34 X10^6/uL (4.7-6.0); WHITE BLOOD COUNT 6.5 X10^3/uL (3.6-10.0)
[2020-07-29 22:18] LABS: BLOOD UREA NITROGEN 13 mg/dL (7-18); CALCIUM 9.1 mg/dL (8.5-10.1); CARBON DIOXIDE 32.2 mmol/L (21-32); CHLORIDE 103 mmol/L (98-107); COR NA(FOR HYPERGLY) 145 mmol/L (136-145); CREATININE 1.06 mg/dL (0.70-1.30); SODIUM 144 mmol/L (136-145); TROPONIN I < 0.02 ng/mL (0-1.5); eGFR NON BLACK RACES > 60 (>60)
[2020-07-29 22:41] LABS: ALANINE AMINOTRANSFERASE 30 Units/L (12-78); ALBUMIN 3.2 g/dL (3.4-5.0); ALKALINE PHOSPHATASE 57 Units/L (46-116); ASPARTATE AMINO TRANSFERASE 31 Units/L (15-37); CKMB % 3.3 % (<4); COR CA(FOR HYPOALB) 9.7 mg/dL (8.5-10.1); CREATINE KINASE 510 Units/L (39-308); TOTAL PROTEIN 7.2 g/dL (6.4-8.2)
[2020-07-29 23:01] LABS: ABG BASE EXCESS 6.3 mmol/L (-2.0-2.0)
[2020-07-29 23:02] LABS: ABG ALLEN TEST POS; ABG HCO3 32.7 mmol/L (22-26)
[2020-07-29] MEDS ORDERED: ROCEPHIN VIAL 1 GRAM 1 G in NS 100 ML IV + SPIKE MINIBAG* 100 ML IV SCH (23:42)
[2020-07-29] MEDS ORDERED: NS 100 ML IV + SPIKE MINIBAG* 100 ML IV ONE (23:59)
[2020-07-29] MEDS ORDERED: ROCEPHIN VIAL 1 GRAM ONE (23:59)
[2020-07-30] MEDS ORDERED: DUONEB 0.5 MG/3 MG (3 mL) NEB SCH (01:00)
[2020-07-30] MEDS ORDERED: DUONEB 0.5 MG/3 MG (3 mL) NEB ONE (01:26)
[2020-07-30] MEDS: DUONEB 0.5 MG/3 MG (3 mL) NEB SCH ×6 (01:40→21:25)
[2020-07-30 02:17] VITALS: BMI 37.5
--- NOTE | 2020-07-30 03:23 | RAD ---
STUDY: CHEST, 1 VIEWCOMPARISON: April 17, 2020HISTORY: SOBFINDINGS:Right-sided chemotherapy port is stable. Cardiomediastinal contour is stable. Small right pleural effusion is stable. No left-sided pleural effusion is seen. Subsegmental atelectasis is noted. No gross pneumothorax is identified.IMPRESSION:There is no significant change from prior studyElectronically signed by: Jose Moeller (Jul 30, 2020 03:22:36)
[2020-07-30] MEDS: SOLU-Medrol 125 MG VIAL IVP SCH ×3 (06:00→21:25)
[2020-07-30] MEDS: FLOMAX PO SCH (11:00)
[2020-07-30] MEDS: PROTONIX INJ 40 MG VIAL IVP SCH (11:00)
[2020-07-30] MEDS: VIBRAMYCIN 100 MG in D5W 250 ML IV 250 ML IV SCH ×2 (11:00→21:24)
[2020-07-30 17:35] LABS: BILIRUBIN,URINE NEGATIVE (NEGATIVE); BLOOD/HEMOGLOBIN,URINE 1+ (NEGATIVE); GLUCOSE, URINE NEGATIVE (NEGATIVE); KETONES,URINE NEGATIVE (NEGATIVE); LEUKOCYTE ESTERASE ,URINE NEGATIVE (NEGATIVE); NITRITES,URINE NEGATIVE (NEGATIVE); PROTEIN,URINE 3+ (NEGATIVE); UROBILINOGEN,URINE NORMAL (NORMAL)
[2020-07-30 17:40] LABS: APPEARANCE,URINE HAZY (CLEAR); COLOR,URINE YELLOW (YELLOW)
[2020-07-30 17:46] LABS: BACTERIA,URINE TRACE /HPF (NEGATIVE); RBC,URINE NONE SEEN /HPF (0-3); SQUAMOUS EPITHELIAL CELL,UR FEW /HPF (NEGATIVE)
[2020-07-30 17:47] LABS: CALCIUM OXALATE CRYSTALS,UR FEW /HPF (NEGATIVE); HYALINE CASTS, URINE FEW /LPF (NEGATIVE); MUCUS,URINE FEW /HPF (NEGATIVE)
--- NOTE | 2020-07-30 19:04 | DR.H&P ---
H&P - History & Physical for Day of: H&P Date: 07/30/20 - Chief Complaint Chief Complaint: sob, weakness - History of Present Illness History of Present Illness: PT IS 70 WM ER ADMISSION WITH SOB. PT HAD HX OF COPD AND HAD TAKEN PO ANTIBIOTICS WITH USE OF DUO NEBS WITHOUT IMPROVEMENT. PT HAS RECEIVED IM ROCEPHIN IN OFFICE OVER PAST 2 WEEKS AND NEGATIVE COVID SWAB, WITH NO IMPROVEMENT. PT CO O2 SAT IN 70S AT HOME WITH CONFUSION PER SPOUSE. PT ADMITTED FOR TREATMENT OF ACUTE HYPOXIA. - Past Medical History Past Medical History: COPD Additional Medical History: COLON CANCER, DVT - Past Surgical History Surgical History: Bowel Resection, Cholecystectomy, Ortho Surgery, Tonsillectomy - Family History Family Medical History: [place] - Social History Does patient currently use any type of tobacco product: Yes Have you used tobacco products in the last 12 months: Yes Type of Tobacco Use: Cigarettes Does any household member use tobacco: No Alcohol Use: None Drug Use: None - Medications Home Medications: No Known Drug Allergies Allergy (Verified 06/01/19 09:14) CONTINUE taking the following medications doxycycline hyclate 100 mg PO BID 07/30/20 [History] - Review of Systems Constitutional: Weakness Eyes: No Symptoms Reported ENT: No Symptoms Reported Respiratory: Cough, Shortness of Breath, SOB with Excertion, Wheezing Cardiovascular: Palpitations, Edema Gastrointestinal: Nausea Genitourinary: No Symptoms Reported Musculoskeletal: Back Pain Skin: No Symptoms Reported Neurological: Weakness, Confusion - Physical Exam Vital Signs: Temperature 97.5 F Pulse Rate [Left Radial] 104 Pulse Rate 70 Respiratory Rate 20 Blood Pressure [Left Arm] 142/77 Blood Pressure 123/56 O2 Sat by Pulse Oximetry 96 Oriented: Person Eyes: Normal Ear: Normal Nose: Normal Throat: Dry Respiratory: Diminished Throughout Cardiovascular: Normal, Edema : Normal Auscultation: Bowel Sounds: Normal Palpation: Normal Tenderness: Normal Skin: Decreased Turgur Musculoskeletal: Back:Lumbar Mood Description: Calm Speech Pattern: Clear, Appropriate - Assessment/Plan (1) Acute respiratory distress Status: Acute Plan: ADMIT, RESP THERAPY. SUPPLEMENTAL O2, BIPAP. IV ATBX, BLOOD AND SPUTUM CULTURES. BP CONTROL, IV HYDRATION. DUO NEBS, IV SOLU MEDROL, REPEAT AM CXR, ABG (2) COPD with acute exacerbation Status: Acute (3) [facility] current use of anticoagulant Status: Acute - Allergies Allergies/Adverse Reactions: Allergies Allergy/AdvReac Type Severity Reaction Status Date / Time No Known Drug Allergies Allergy Verified 06/01/19 09:14
[2020-07-30] MEDS: ELIQUIS PO SCH (21:24)
[2020-07-30] MEDS: ROCEPHIN VIAL 1 GRAM 1 G in NS 100 ML IV + SPIKE MINIBAG* 100 ML IV SCH (21:24)
[2020-07-30] MEDS: NEURONTIN CAP 100 MG PO SCH (21:25)
[2020-07-30] MEDS: ROBITUSSIN DM PO PRN (21:30)
[2020-07-31] MEDS ORDERED: TUSSIONEX PENNKINETIC SUSP ONE (00:01)
[2020-07-31] MEDS: TUSSIONEX PENNKINETIC SUSP PO PRN ×2 (00:28→20:35)
[2020-07-31] MEDS: DUONEB 0.5 MG/3 MG (3 mL) NEB SCH ×6 (01:40→21:50)
[2020-07-31 04:28] LABS: BASOPHILS % (AUTO) 0.2 % (0.2-1.0); EOSINOPHILS % (AUTO) 0.1 % (0.9-2.9); HEMATOCRIT 46.1 % (42.0-54.0); HEMOGLOBIN 14.8 g/dL (13.5-18.0); LYMPHOCYTES # (AUTO) 0.3 X10^3/uL (1.3-2.9); LYMPHOCYTES % (AUTO) 2.5 % (21.0-51.0); MEAN CORPUSCULAR HEMOGLOBIN 28.5 pg (27.0-34.0); MEAN CORPUSCULAR HGB CONC 32.1 g/dL (33.0-35.0); MEAN PLATELET VOLUME 7.7 fL (7.4-11.0); MONOCYTES # (AUTO) 0.4 x10^3/uL (0.3-0.8); MONOCYTES % (AUTO) 3.1 % (0.0-13.0); NEUTROPHILS # (AUTO) 12.7 x10^3/uL (2.2-4.8); NEUTROPHILS % (AUTO) 94.1 % (42.0-75.0); PLATELET COUNT 204 X10^3/uL (150.0-450.0); RED BLOOD COUNT 5.19 X10^6/uL (4.7-6.0); RED CELL DISTRIBUTION WIDTH 15.3 % (11.6-16.5); WHITE BLOOD COUNT 13.5 X10^3/uL (3.6-10.0)
[2020-07-31 05:00] LABS: PLATELET MORPHOLOGY COMMENT NORMAL (NORMAL)
[2020-07-31 05:08] LABS: ALANINE AMINOTRANSFERASE 25 Units/L (12-78); ALKALINE PHOSPHATASE 52 Units/L (46-116); ASPARTATE AMINO TRANSFERASE 22 Units/L (15-37); BLOOD UREA NITROGEN 20 mg/dL (7-18); CALCIUM 9.5 mg/dL (8.5-10.1); CARBON DIOXIDE 32.6 mmol/L (21-32); CHLORIDE 104 mmol/L (98-107); CKMB % 3.2 % (<4); COR CA(FOR HYPOALB) 10.3 mg/dL (8.5-10.1); COR NA(FOR HYPERGLY) 145 mmol/L (136-145); CREATINE KINASE 398 Units/L (39-308); CREATININE 1.22 mg/dL (0.70-1.30); SODIUM 143 mmol/L (136-145); TOTAL PROTEIN 7.1 g/dL (6.4-8.2); TROPONIN I < 0.02 ng/mL (0-1.5); eGFR NON BLACK RACES > 60 (>60)
[2020-07-31 05:11] LABS: CREATINE KINASE MB 12.7 ng/mL (0-4.0)
[2020-07-31 05:41] LABS: ABG BASE EXCESS 9.9 mmol/L (-2.0-2.0)
[2020-07-31 05:43] LABS: ABG ALLEN TEST POS; ABG HCO3 38.1 mmol/L (22-26)
[2020-07-31] MEDS: SOLU-Medrol 125 MG VIAL IVP SCH ×3 (05:46→22:22)
--- NOTE | 2020-07-31 06:11 | RAD ---
HISTORYCOPDSTUDYCHEST, 1 [id number]/2020TECHNIQUEAP view of the chestFINDINGSRight chest wall port with tip in good position. The cardiac and mediastinal contours appear normal. Blunted right costophrenic sulcus is stable. Associated right base opacity likely atelectasis. No definite pneumothorax.IMPRESSIONNo significant change. Suspect small right pleural effusion with associated atelectasis.Electronically signed by: Gustavo Mccracken (Jul 31, 2020 06:10:43)
[2020-07-31] MEDS: ELIQUIS PO SCH ×2 (08:59→20:32)
[2020-07-31] MEDS: FLOMAX PO SCH (08:59)
[2020-07-31] MEDS: NEURONTIN CAP 100 MG PO SCH ×2 (08:59→20:33)
[2020-07-31] MEDS: PROTONIX INJ 40 MG VIAL IVP SCH (09:25)
[2020-07-31] MEDS: VIBRAMYCIN 100 MG in D5W 250 ML IV 250 ML IV SCH ×2 (10:01→21:00)
[2020-07-31] MEDS ORDERED: NS 250 ML IV 250 ML IV ONE ×2 (20:25)
[2020-07-31] MEDS: NS 250 ML IV 250 ML IV PRN (20:34)
[2020-07-31] MEDS: ROCEPHIN VIAL 1 GRAM 1 G in NS 100 ML IV + SPIKE MINIBAG* 100 ML IV SCH (20:35)
[2020-08-01] MEDS: DUONEB 0.5 MG/3 MG (3 mL) NEB SCH ×7 (01:36→21:15)
[2020-08-01 05:01] LABS: BASOPHILS % (AUTO) 0.1 % (0.2-1.0); HEMOGLOBIN 14.6 g/dL (13.5-18.0); LYMPHOCYTES # (AUTO) 0.5 X10^3/uL (1.3-2.9); LYMPHOCYTES % (AUTO) 3.8 % (21.0-51.0); MEAN CORPUSCULAR HEMOGLOBIN 28.7 pg (27.0-34.0); MEAN CORPUSCULAR HGB CONC 32.5 g/dL (33.0-35.0); MEAN CORPUSCULAR VOLUME 88.2 fL (80.0-100.0); MEAN PLATELET VOLUME 7.8 fL (7.4-11.0); MONOCYTES # (AUTO) 0.6 x10^3/uL (0.3-0.8); MONOCYTES % (AUTO) 4.9 % (0.0-13.0); NEUTROPHILS # (AUTO) 11.3 x10^3/uL (2.2-4.8); NEUTROPHILS % (AUTO) 91.2 % (42.0-75.0); PLATELET COUNT 191 X10^3/uL (150.0-450.0); RED CELL DISTRIBUTION WIDTH 15.1 % (11.6-16.5); WHITE BLOOD COUNT 12.4 X10^3/uL (3.6-10.0)
[2020-08-01] MEDS: SOLU-Medrol 125 MG VIAL IVP SCH ×3 (05:08→21:13)
[2020-08-01 05:15] LABS: ALANINE AMINOTRANSFERASE 29 Units/L (12-78); ALBUMIN 2.9 g/dL (3.4-5.0); ALKALINE PHOSPHATASE 48 Units/L (46-116); ASPARTATE AMINO TRANSFERASE 27 Units/L (15-37); BLOOD UREA NITROGEN 22 mg/dL (7-18); CALCIUM 9.4 mg/dL (8.5-10.1); CARBON DIOXIDE 36.6 mmol/L (21-32); CHLORIDE 105 mmol/L (98-107); COR CA(FOR HYPOALB) 10.3 mg/dL (8.5-10.1); COR NA(FOR HYPERGLY) 144 mmol/L (136-145); CREATININE 0.92 mg/dL (0.70-1.30); SODIUM 143 mmol/L (136-145); TOTAL PROTEIN 6.7 g/dL (6.4-8.2); eGFR NON BLACK RACES > 60 (>60)
[2020-08-01 05:35] LABS: ABG BASE EXCESS 12.7 mmol/L (-2.0-2.0)
[2020-08-01 05:36] LABS: ABG HCO3 41.2 mmol/L (22-26)
[2020-08-01 05:37] LABS: ABG ALLEN TEST POS
[2020-08-01 06:21] LABS: PLATELET MORPHOLOGY COMMENT NORMAL (NORMAL)
[2020-08-01] MEDS: ELIQUIS PO SCH ×2 (08:45→21:08)
[2020-08-01] MEDS: NEURONTIN CAP 100 MG PO SCH ×2 (08:46→21:09)
[2020-08-01] MEDS: FLOMAX PO SCH (08:47)
[2020-08-01] MEDS: PROTONIX INJ 40 MG VIAL IVP SCH (08:50)
[2020-08-01] MEDS: VIBRAMYCIN 100 MG in D5W 250 ML IV 250 ML IV SCH ×2 (08:50→21:12)
[2020-08-01] MEDS: NORCO 5/325 MG TAB PO PRN ×3 (09:44→22:31)
[2020-08-01] MEDS ORDERED: MIRALAX POWDER (1 DOSE 17 G) PO STA (11:52)
[2020-08-01] MEDS ORDERED: LASIX IVP ONE (11:56)
[2020-08-01] MEDS ORDERED: MIRALAX POWDER (1 DOSE 17 G) ONE (11:57)
[2020-08-01 12:25] LABS: ABG BASE EXCESS 13.8 mmol/L (-2.0-2.0)
[2020-08-01 12:26] LABS: ABG HCO3 41.2 mmol/L (22-26)
[2020-08-01 12:27] LABS: ABG ALLEN TEST POS
--- NOTE | 2020-08-01 13:21 | RAD ---
HISTORYSOBSTUDYPortable AP [id number]/15/2020FINDINGSNormal heart size. Mild atelectasis noted in both lower lungs. No consolidation, edema or definite pleural fluid. Stable position of right subclavian injection port.IMPRESSIONMild bibasal atelectasis, stable on the right and increasing on the left.Electronically signed by: REESE WHITLOCK (Aug 01, 2020 13:20:40)
[2020-08-01] MEDS: MIRALAX POWDER (1 DOSE 17 G) PO SCH (21:00)
[2020-08-01] MEDS: ROCEPHIN VIAL 1 GRAM 1 G in NS 100 ML IV + SPIKE MINIBAG* 100 ML IV SCH (21:09)
[2020-08-01] MEDS: ROBITUSSIN DM PO PRN (21:09)
[2020-08-02] MEDS: DUONEB 0.5 MG/3 MG (3 mL) NEB SCH ×6 (00:35→20:00)
[2020-08-02] MEDS: SOLU-Medrol 125 MG VIAL IVP SCH ×3 (05:03→23:12)
[2020-08-02 05:36] LABS: BASOPHILS % (AUTO) 0.4 % (0.2-1.0); HEMATOCRIT 46.1 % (42.0-54.0); LYMPHOCYTES # (AUTO) 0.4 X10^3/uL (1.3-2.9); LYMPHOCYTES % (AUTO) 4.1 % (21.0-51.0); MEAN CORPUSCULAR HEMOGLOBIN 28.7 pg (27.0-34.0); MEAN CORPUSCULAR HGB CONC 32.6 g/dL (33.0-35.0); MEAN CORPUSCULAR VOLUME 88.1 fL (80.0-100.0); MEAN PLATELET VOLUME 8.1 fL (7.4-11.0); MONOCYTES # (AUTO) 0.6 x10^3/uL (0.3-0.8); MONOCYTES % (AUTO) 5.8 % (0.0-13.0); NEUTROPHILS # (AUTO) 9.2 x10^3/uL (2.2-4.8); NEUTROPHILS % (AUTO) 89.7 % (42.0-75.0); PLATELET COUNT 191 X10^3/uL (150.0-450.0); RED BLOOD COUNT 5.23 X10^6/uL (4.7-6.0); RED CELL DISTRIBUTION WIDTH 15.4 % (11.6-16.5); WHITE BLOOD COUNT 10.3 X10^3/uL (3.6-10.0)
[2020-08-02 05:45] LABS: ABG BASE EXCESS 15.8 mmol/L (-2.0-2.0)
[2020-08-02 05:47] LABS: ABG ALLEN TEST POS; ABG HCO3 43.7 mmol/L (22-26)
[2020-08-02 05:50] LABS: ALANINE AMINOTRANSFERASE 75 Units/L (12-78); ALBUMIN 2.8 g/dL (3.4-5.0); ALKALINE PHOSPHATASE 49 Units/L (46-116); ASPARTATE AMINO TRANSFERASE 55 Units/L (15-37); BLOOD UREA NITROGEN 22 mg/dL (7-18); CALCIUM 9.1 mg/dL (8.5-10.1); CARBON DIOXIDE 36.8 mmol/L (21-32); CHLORIDE 101 mmol/L (98-107); COR CA(FOR HYPOALB) 10.1 mg/dL (8.5-10.1); COR NA(FOR HYPERGLY) 141 mmol/L (136-145); CREATININE 0.86 mg/dL (0.70-1.30); SODIUM 140 mmol/L (136-145); TOTAL PROTEIN 6.6 g/dL (6.4-8.2); eGFR NON BLACK RACES > 60 (>60)
--- NOTE | 2020-08-02 06:41 | RAD ---
HISTORYSOBSTUDYPortable AP [id number]/16/2020FINDINGSContinued normal heart size. Stable position of injection port. Pers istent areas of bibasal atelectasis. There is no evidence for developing lobar consolidation, edema, pneumothorax or large pleural effusion.IMPRESSIONPersistent areas of bibasal atelectasis. No change.E lectronically signed by: REESE WHITLOCK (Aug 02, 2020 06:40:05)
[2020-08-02] MEDS: FLOMAX PO SCH (09:16)
[2020-08-02] MEDS: NEURONTIN CAP 100 MG PO SCH ×2 (09:16→20:45)
[2020-08-02] MEDS: ELIQUIS PO SCH ×2 (09:16→20:45)
[2020-08-02] MEDS: VIBRAMYCIN 100 MG in D5W 250 ML IV 250 ML IV SCH ×2 (09:17→20:46)
[2020-08-02] MEDS: PROTONIX INJ 40 MG VIAL IVP SCH (09:17)
[2020-08-02] MEDS: PULMICORT NEB TX 0.5 MG NEB SCH ×2 (12:15→20:00)
[2020-08-02] MEDS: MIRALAX POWDER (1 DOSE 17 G) PO SCH (20:45)
[2020-08-02] MEDS: ROCEPHIN VIAL 1 GRAM 1 G in NS 100 ML IV + SPIKE MINIBAG* 100 ML IV SCH (20:46)
[2020-08-02] MEDS: NORCO 5/325 MG TAB PO PRN (20:46)
[2020-08-02] MEDS: TUSSIONEX PENNKINETIC SUSP PO PRN (20:47)
[2020-08-03] MEDS: DUONEB 0.5 MG/3 MG (3 mL) NEB SCH ×6 (00:40→21:15)
[2020-08-03 05:07] LABS: BASOPHILS % (AUTO) 0.1 % (0.2-1.0); HEMATOCRIT 48.1 % (42.0-54.0); HEMOGLOBIN 15.7 g/dL (13.5-18.0); LYMPHOCYTES # (AUTO) 0.3 X10^3/uL (1.3-2.9); LYMPHOCYTES % (AUTO) 3.5 % (21.0-51.0); MEAN CORPUSCULAR HEMOGLOBIN 28.6 pg (27.0-34.0); MEAN CORPUSCULAR HGB CONC 32.7 g/dL (33.0-35.0); MEAN CORPUSCULAR VOLUME 87.6 fL (80.0-100.0); MEAN PLATELET VOLUME 8.2 fL (7.4-11.0); MONOCYTES # (AUTO) 0.2 x10^3/uL (0.3-0.8); NEUTROPHILS # (AUTO) 8.8 x10^3/uL (2.2-4.8); NEUTROPHILS % (AUTO) 94.4 % (42.0-75.0); PLATELET COUNT 175 X10^3/uL (150.0-450.0); RED CELL DISTRIBUTION WIDTH 15.4 % (11.6-16.5); WHITE BLOOD COUNT 9.3 X10^3/uL (3.6-10.0)
[2020-08-03] MEDS: SOLU-Medrol 125 MG VIAL IVP SCH ×3 (05:08→21:53)
[2020-08-03] MEDS: NS 250 ML IV 250 ML IV PRN (05:09)
[2020-08-03 05:22] LABS: ALANINE AMINOTRANSFERASE 145 Units/L (12-78); ALBUMIN 2.8 g/dL (3.4-5.0); ALKALINE PHOSPHATASE 49 Units/L (46-116); ASPARTATE AMINO TRANSFERASE 58 Units/L (15-37); BLOOD UREA NITROGEN 22 mg/dL (7-18); CALCIUM 9.1 mg/dL (8.5-10.1); CARBON DIOXIDE 36.2 mmol/L (21-32); CHLORIDE 101 mmol/L (98-107); COR CA(FOR HYPOALB) 10.1 mg/dL (8.5-10.1); COR NA(FOR HYPERGLY) 140 mmol/L (136-145); CREATININE 0.91 mg/dL (0.70-1.30); SODIUM 139 mmol/L (136-145); TOTAL PROTEIN 6.8 g/dL (6.4-8.2); eGFR NON BLACK RACES > 60 (>60)
[2020-08-03 06:33] LABS: PLATELET MORPHOLOGY COMMENT NORMAL (NORMAL)
--- NOTE | 2020-08-03 07:00 | RAD ---
HISTORYSOBSTUDYCHEST, 1 [id number]/17/2INDINGSTrachea is midline. Heart size enlarged. A basilar opacities are unchanged from prior examination. No new airspace consolidation or large effusion. No pneumothorax stable positioning of right chest wall MediPort. No acute osseous abnormality.IMPRESSIONPersistent bibasilar opacities without new airspace disease, large effusion or evidence of pneumothorax.Electronically signed by: ELINOR NEVAREZ (Aug 03, 2020 06:59:00)
[2020-08-03] MEDS: ELIQUIS PO SCH ×2 (08:30→20:37)
[2020-08-03] MEDS: FLOMAX PO SCH (08:30)
[2020-08-03] MEDS: PROTONIX INJ 40 MG VIAL IVP SCH (08:31)
[2020-08-03] MEDS: VIBRAMYCIN 100 MG in D5W 250 ML IV 250 ML IV SCH ×2 (08:31→20:43)
[2020-08-03] MEDS: NEURONTIN CAP 100 MG PO SCH ×2 (08:31→20:37)
[2020-08-03] MEDS: PULMICORT NEB TX 0.5 MG NEB SCH ×2 (08:50→21:15)
[2020-08-03 10:13] LABS: ABG BASE EXCESS 11.7 mmol/L (-2.0-2.0)
[2020-08-03 10:14] LABS: ABG ALLEN TEST POS
--- NOTE | 2020-08-03 11:28 | PCM.PROG ---
Progress Note - Progress Note for Day of Date of Exam: 08/02/20 - Subjective Subjective: IS A 70 YEAR OLD PATIENT OF . HE IS BEING TREATED FOR COPD EXACERBATION WITH ACUTE BRONCHITIS. HE HAS BEEN UTILIZING THE BIPAP, MOSTLY AT NIGHT, AND NASAL CANNULA DURING THE DAY. HE IS STILL ON THE BIPAP THIS MORNING. HE CONTINUES WITH COMPLAINTS OF SHORTNESS OF BREATH AND COUGH AT TIMES. ON EXAMINATION, HEART IS REGULAR IN RATE AND RHYTHM. BILATERAL LUNGS ARE NOTED WITH SCATTERED WHEEZING THROUGHOUT. ABDOMEN IS ROUND, SOFT, AND NON-TENDER WITH NORMAL BOWEL SOUNDS NOTED IN ALL QUADRANTS. HIS VITALS THIS MORNING ARE: 97.9-78-20-95%-138/71. LABS WERE OBTAINED. ABNORMAL LAB VALUES INCLUDE THE FOLLOWING: WBC 10.3, CARBON DIOXIDE 36.8, BUN 22, GLUCOSE 146, AST 55, ALBUMIN 2.8. ABG THIS MORNING REVEALED: PH 7.410, PC02 69, P02 89, HC03 43.7, 02 SAT 97, BASE EXCESS 15.8, FI02 35.0. A CHEST XRAY WAS OBTAINED THIS MORNING AND REVEALED: PERSISTENT AREAS OF BIBASAL ATELECTASIS. NO CHANGE. HE IS CURRENTLY RECEIVING NS AT KVO, DOXYCYCLINE 100MG IV Q12H, PULMICORT NEBS BID, DUONEBS Q4H, ELIQUIS 5ML PO BID, ROBITUSSIN DM 10 ML PO Q4H PRN, PROTONIX 40MG IV DIALY, AND SOLU-MEDROL 80MG IV Q8H. HIS HOME MEDICATIONS WERE RESUMED. WE WILL CONTINUE WITH CURRENT PLAN OF CARE TODAY. OTHERWISE, WE WILL FOLLOW UP WITH AM LABS AND CONTINUE TO MONITOR. - Past Medical Family Social History Past Med/Fam/Surg Hx: No changes since H&P Allergies: Allergies No Known Drug Allergies Allergy (Verified 06/01/19 09:14) - Review of Systems ROS: No change since H&P - Vital Signs and I&O's Vital Signs: Temperature 97.7 F Pulse Rate [Left Radial] 80 Pulse Rate 81 Respiratory Rate 20 Blood Pressure [Left Arm] 155/90 Blood Pressure 123/56 O2 Sat by Pulse Oximetry 93 Intake and Output: Intake & Output 07/31/20 08/01/20 08/02/20 08/03/20 11:59 11:59 11:59 11:59 Intake Total 570 / 570 1500 / 1500 1930 / 1930 2815 / 2815 Output Total 150 / 150 900 / 900 2975 / 2975 2850 / 2850 Balance 420 / 420 600 / 600 -1045 / -1045 -35 / -35 - Physical Exam Oriented: Person Eyes: Normal Ear: Normal Nose: Normal Throat: Dry Respiratory: Generalized, Diminished, Wheezes Cardiovascular: Normal : Normal Auscultation: Bowel Sounds: Normal Palpation: Normal Tenderness: Normal Skin: Decreased Turgur Musculoskeletal: Back:Lumbar Mood Description: Calm Speech Pattern: Appropriate - Laboratory and Diagnostics Result Diagrams: 08/03/20 04:05 08/03/20 04:05 Labs: 07/30/20 17:15 Urine,Catheterized Urine Culture - Final Laboratory WBC 9.3 X10^3/uL (3.6-10.0) 08/03/20 04:05 RBC 5.50 X10^6/uL (4.7-6.0) 08/03/20 04:05 Hgb 15.7 g/dL (13.5-18.0) 08/03/20 04:05 Hct 48.1 % (42.0-54.0) 08/03/20 04:05 MCV 87.6 fL (80.0-100.0) 08/03/20 04:05 MCH 28.6 pg (27.0-34.0) 08/03/20 04:05 MCHC 32.7 g/dL (33.0-35.0) L 08/03/20 04:05 RDW 15.4 % (11.6-16.5) 08/03/20 04:05 Plt Count 175 X10^3/uL (150.0-450.0) 08/03/20 04:05 Plt Count Comment Adequate (ADEQUATE) 08/03/20 04:05 MPV 8.2 fL (7.4-11.0) 08/03/20 04:05 Neut % (Auto) 94.4 % (42.0-75.0) H 08/03/20 04:05 Lymph % (Auto) 3.5 % (21.0-51.0) L 08/03/20 04:05 [place] % (Auto) 2.0 % (0.0-13.0) 08/03/20 04:05 Eos % (Auto) 0.0 % (0.9-2.9) L 08/03/20 04:05 Baso % (Auto) 0.1 % (0.2-1.0) L 08/03/20 04:05 Neut # (Auto) 8.8 x10^3/uL (2.2-4.8) H 08/03/20 04:05 Lymph # (Auto) 0.3 X10^3/uL (1.3-2.9) L 08/03/20 04:05 [place] # (Auto) 0.2 x10^3/uL (0.3-0.8) L 08/03/20 04:05 Eos # (Auto) 0.0 x10^3/uL (0.0-0.2) 08/03/20 04:05 Baso # (Auto) 0.0 X10^3/uL (0.0-0.1) 08/03/20 04:05 Absolute Nucleated RBC 0.1 /100WBC 08/03/20 04:05 Total Counted 100 08/03/20 04:05 Neutrophils % (Manual) 94 % (39-76) H 08/03/20 04:05 Lymphocytes % (Manual) 3 % (13-43) L 08/03/20 04:05 Monocytes % (Manual) 3 % (4-9) L 08/03/20 04:05 Plt Morphology Comment Normal (NORMAL) 08/03/20 04:05 RBC Morphology Normal (NORMAL) 08/03/20 04:05 Sample Site Rr 08/03/20 10:07 ABG pH 7.440 (7.35-7.45) 08/03/20 10:07 ABG pCO2 56.0 mmHg (35.0-45.0) H* 08/03/20 10:07 ABG pO2 66.0 mmHg (80.0-100.0) L 08/03/20 10:07 ABG HCO3 38.0 mmol/L (22-26) H* 08/03/20 10:07 ABG O2 Saturation 93.0 % (90-100) 08/03/20 10:07 ABG Base Excess 11.7 mmol/L (-2.0-2.0) H 08/03/20 10:07 Kris Test Pos 08/03/20 10:07 A-a Gradient 92.0 mmHg 08/03/20 10:07 FiO2 32.0 08/03/20 10:07 Blood Gas Comments [place] well 08/03/20 10:07 Sodium 139 mmol/L (136-145) 08/03/20 04:05 Corrected Sodium 140 mmol/L (136-145) 08/03/20 04:05 Potassium 4.9 mmol/L (3.5-5.1) 08/03/20 04:05 Chloride 101 mmol/L (98-107) 08/03/20 04:05 Carbon Dioxide 36.2 mmol/L (21-32) H 08/03/20 04:05 BUN 22 mg/dL (7-18) H 08/03/20 04:05 Creatinine 0.91 mg/dL (0.70-1.30) 08/03/20 04:05 Est GFR (MDRD) Af Amer > 60 (>60) 08/03/20 04:05 Est GFR (MDRD) Non-Af > 60 (>60) 08/03/20 04:05 Glucose 139 mg/dL (65-99) H 08/03/20 04:05 Calcium 9.1 mg/dL (8.5-10.1) 08/03/20 04:05 Corrected Calcium 10.1 mg/dL (8.5-10.1) 08/03/20 04:05 Magnesium 2.0 mg/dL (1.7-2.9) 07/29/20 21:55 Total Bilirubin 0.40 mg/dL (0.2-1.0) 08/03/20 04:05 AST 58 Units/L (15-37) H 08/03/20 04:05 ALT 145 Units/L (12-78) H 08/03/20 04:05 Alkaline Phosphatase 49 Units/L (46-116) 08/03/20 04:05 Creatine Kinase 398 Units/L (39-308) H 07/31/20 04:18 CK-MB (CK-2) 12.7 ng/mL (0-4.0) H* 07/31/20 04:18 CK/CKMB % Calc 3.2 % (<4) 07/31/20 04:18 Troponin I < 0.02 ng/mL (0-1.5) 07/31/20 04:18 B-Natriuretic Peptide 54.2 pg/mL (0-79) 07/29/20 21:55 Total Protein 6.8 g/dL (6.4-8.2) 08/03/20 04:05 Albumin 2.8 g/dL (3.4-5.0) L 08/03/20 04:05 Globulin 4.0 g/dL (2.5-4.5) 08/03/20 04:05 Albumin/Globulin Ratio 0.7 Ratio (1.1-2.1) L 08/03/20 04:05 Specimen Type Catherized urine 07/30/20 17:15 Urine Color Yellow (YELLOW) 07/30/20 17:15 Urine Appearance Hazy (CLEAR) 07/30/20 17:15 Urine pH 5.0 (5.0 - 8.0) 07/30/20 17:15 Ur Specific [place] 1.030 (1.000-1.030) 07/30/20 17:15 Urine Protein 3+ (NEGATIVE) 07/30/20 17:15 Urine Glucose (UA) Negative (NEGATIVE) 07/30/20 17:15 Urine Ketones Negative (NEGATIVE) 07/30/20 17:15 Urine Occult Blood 1+ (NEGATIVE) 07/30/20 17:15 Urine Nitrite Negative (NEGATIVE) 07/30/20 17:15 Urine Bilirubin Negative (NEGATIVE) 07/30/20 17:15 Urine Urobilinogen Normal (NORMAL) 07/30/20 17:15 Ur Leukocyte Esterase Negative (NEGATIVE) 07/30/20 17:15 Urine RBC None seen /HPF (0-3) 07/30/20 17:15 Urine WBC 3-5 /HPF (0-5) 07/30/20 17:15 Ur Squamous Epith Cells Few /HPF (NEGATIVE) 07/30/20 17:15 Calcium Oxalate Crystal Few /HPF (NEGATIVE) 07/30/20 17:15 Urine Bacteria Trace /HPF (NEGATIVE) 07/30/20 17:15 Hyaline Casts Few /LPF (NEGATIVE) 07/30/20 17:15 Urine Mucus Few /HPF (NEGATIVE) 07/30/20 17:15 Ur Culture Indicated? Yes/culture set up 07/30/20 17:15 SARS-CoV-2 (PCR) Negative (NEGATIVE) 07/29/20 23:30 - Plan (1) COPD exacerbation Status: Acute Plan: NS AT KVO, DOXYCYCLINE 100MG IV Q12H, PULMICORT NEBS BID, DUONEBS Q4H, ELIQUIS 5ML PO BID, ROBITUSSIN DM 10 ML PO Q4H PRN, PROTONIX 40MG IV DIALY, AND SOLU-MEDROL 80MG IV Q8H. HIS HOME MEDICATIONS WERE RESUMED (2) Acute bronchitis Status: Acute Qualifiers: Bronchitis organism: unspecified organism Qualified Code(s): J20.9 - Acute bronchitis, unspecified
--- NOTE | 2020-08-03 11:32 | PCM.PROG ---
Progress Note - Progress Note for Day of Date of Exam: 08/03/20 - Subjective Subjective: IS A 70 YEAR OLD PATIENT OF . HE IS BEING TREATED FOR COPD EXACERBATION WITH ACUTE BRONCHITIS. HE HAS BEEN UTILIZING THE BIPAP, MOSTLY AT NIGHT, AND NASAL CANNULA DURING THE DAY. HE IS ON NASAL CANNULA THIS MORNING. HE CONTINUES WITH COMPLAINTS OF SHORTNESS OF BREATH AND COUGH AT TIMES, BUT DOES REPORT SLIGHT IMPROVEMENT IN SYMPTOMS. ON EXAMINATION, HEART IS REGULAR IN RATE AND RHYTHM. BILATERAL LUNGS ARE NOTED WITH SCATTERED WHEEZING THROUGHOUT. ABDOMEN IS ROUND, SOFT, AND NON-TENDER WITH NORMAL BOWEL SOUNDS NOTED IN ALL QUADRANTS. HIS VITALS THIS MORNING ARE: 97.7-80-20-96%NC-155/90. LABS WERE OBTAINED. ABNORMAL LAB VALUES INCLUDE THE FOLLOWING: CARBON DIOXIDE 36.2, BUN 22, GLUCOSE 139, AST 58, ALT 145, ALBUMIN 2.8. ABG THIS MORNING REVEALED: PH 7.440, PC02 56, P02 66, HC03 38.0, 02 SAT 93, BASE EXCESS 11.7, FI02 32.0. A CHEST XRAY WAS OBTAINED THIS MORNING AND REVEALED: Persistent bibasilar opacities without new airspace disease, large effusion or evidence of pneumothorax. HE IS CURRENTLY RECEIVING NS AT [facility], DOXYCYCLINE 100MG IV Q12H, PULMICORT NEBS BID, DUONEBS Q4H, ELIQUIS 5ML PO BID, ROBITUSSIN DM 10 ML PO Q4H PRN, PROTONIX 40MG IV DIALY, AND SOLU-MEDROL 80MG IV Q8H. HIS HOME MEDICATIONS WERE RESUMED. WE WILL CONTINUE WITH CURRENT PLAN OF CARE TODAY. OTHERWISE, WE WILL FOLLOW UP WITH AM LABS AND CONTINUE TO MONITOR. - Past Medical Family Social History Past Med/Fam/Surg Hx: No changes since H&P Allergies: Allergies No Known Drug Allergies Allergy (Verified 06/01/19 09:14) - Review of Systems ROS: No change since H&P - Vital Signs and I&O's Vital Signs: Temperature 97.7 F Pulse Rate [Left Radial] 80 Pulse Rate 81 Respiratory Rate 20 Blood Pressure [Left Arm] 155/90 Blood Pressure 123/56 O2 Sat by Pulse Oximetry 93 Intake and Output: Intake & Output 07/31/20 08/01/20 08/02/20 08/03/20 11:59 11:59 11:59 11:59 Intake Total 570 / 570 1500 / 1500 1930 / 1930 2815 / 2815 Output Total 150 / 150 900 / 900 2975 / 2975 2850 / 2850 Balance 420 / 420 600 / 600 -1045 / -1045 -35 / -35 - Physical Exam Oriented: Person Eyes: Normal Ear: Normal Nose: Normal Throat: Dry Respiratory: Generalized, Diminished, Wheezes Cardiovascular: Normal : Normal Auscultation: Bowel Sounds: Normal Tenderness: Normal Skin: Decreased Turgur Musculoskeletal: Back:Lumbar Mood Description: Calm Speech Pattern: Appropriate - Laboratory and Diagnostics Result Diagrams: 08/03/20 04:05 08/03/20 04:05 Labs: 07/30/20 17:15 Urine,Catheterized Urine Culture - Final Laboratory WBC 9.3 X10^3/uL (3.6-10.0) 08/03/20 04:05 RBC 5.50 X10^6/uL (4.7-6.0) 08/03/20 04:05 Hgb 15.7 g/dL (13.5-18.0) 08/03/20 04:05 Hct 48.1 % (42.0-54.0) 08/03/20 04:05 MCV 87.6 fL (80.0-100.0) 08/03/20 04:05 MCH 28.6 pg (27.0-34.0) 08/03/20 04:05 MCHC 32.7 g/dL (33.0-35.0) L 08/03/20 04:05 RDW 15.4 % (11.6-16.5) 08/03/20 04:05 Plt Count 175 X10^3/uL (150.0-450.0) 08/03/20 04:05 Plt Count Comment Adequate (ADEQUATE) 08/03/20 04:05 MPV 8.2 fL (7.4-11.0) 08/03/20 04:05 Neut % (Auto) 94.4 % (42.0-75.0) H 08/03/20 04:05 Lymph % (Auto) 3.5 % (21.0-51.0) L 08/03/20 04:05 [place] % (Auto) 2.0 % (0.0-13.0) 08/03/20 04:05 Eos % (Auto) 0.0 % (0.9-2.9) L 08/03/20 04:05 Baso % (Auto) 0.1 % (0.2-1.0) L 08/03/20 04:05 Neut # (Auto) 8.8 x10^3/uL (2.2-4.8) H 08/03/20 04:05 Lymph # (Auto) 0.3 X10^3/uL (1.3-2.9) L 08/03/20 04:05 [place] # (Auto) 0.2 x10^3/uL (0.3-0.8) L 08/03/20 04:05 Eos # (Auto) 0.0 x10^3/uL (0.0-0.2) 08/03/20 04:05 Baso # (Auto) 0.0 X10^3/uL (0.0-0.1) 08/03/20 04:05 Absolute Nucleated RBC 0.1 /100WBC 08/03/20 04:05 Total Counted 100 08/03/20 04:05 Neutrophils % (Manual) 94 % (39-76) H 08/03/20 04:05 Lymphocytes % (Manual) 3 % (13-43) L 08/03/20 04:05 Monocytes % (Manual) 3 % (4-9) L 08/03/20 04:05 Plt Morphology Comment Normal (NORMAL) 08/03/20 04:05 RBC Morphology Normal (NORMAL) 08/03/20 04:05 Sample Site Rr 08/03/20 10:07 ABG pH 7.440 (7.35-7.45) 08/03/20 10:07 ABG pCO2 56.0 mmHg (35.0-45.0) H* 08/03/20 10:07 ABG pO2 66.0 mmHg (80.0-100.0) L 08/03/20 10:07 ABG HCO3 38.0 mmol/L (22-26) H* 08/03/20 10:07 ABG O2 Saturation 93.0 % (90-100) 08/03/20 10:07 ABG Base Excess 11.7 mmol/L (-2.0-2.0) H 08/03/20 10:07 Kris Test Pos 08/03/20 10:07 A-a Gradient 92.0 mmHg 08/03/20 10:07 FiO2 32.0 08/03/20 10:07 Blood Gas Comments Lenin well 08/03/20 10:07 Sodium 139 mmol/L (136-145) 08/03/20 04:05 Corrected Sodium 140 mmol/L (136-145) 08/03/20 04:05 Potassium 4.9 mmol/L (3.5-5.1) 08/03/20 04:05 Chloride 101 mmol/L (98-107) 08/03/20 04:05 Carbon Dioxide 36.2 mmol/L (21-32) H 08/03/20 04:05 BUN 22 mg/dL (7-18) H 08/03/20 04:05 Creatinine 0.91 mg/dL (0.70-1.30) 08/03/20 04:05 Est GFR (MDRD) Af Amer > 60 (>60) 08/03/20 04:05 Est GFR (MDRD) Non-Af > 60 (>60) 08/03/20 04:05 Glucose 139 mg/dL (65-99) H 08/03/20 04:05 Calcium 9.1 mg/dL (8.5-10.1) 08/03/20 04:05 Corrected Calcium 10.1 mg/dL (8.5-10.1) 08/03/20 04:05 Magnesium 2.0 mg/dL (1.7-2.9) 07/29/20 21:55 Total Bilirubin 0.40 mg/dL (0.2-1.0) 08/03/20 04:05 AST 58 Units/L (15-37) H 08/03/20 04:05 ALT 145 Units/L (12-78) H 08/03/20 04:05 Alkaline Phosphatase 49 Units/L (46-116) 08/03/20 04:05 Creatine Kinase 398 Units/L (39-308) H 07/31/20 04:18 CK-MB (CK-2) 12.7 ng/mL (0-4.0) H* 07/31/20 04:18 CK/CKMB % Calc 3.2 % (<4) 07/31/20 04:18 Troponin I < 0.02 ng/mL (0-1.5) 07/31/20 04:18 B-Natriuretic Peptide 54.2 pg/mL (0-79) 07/29/20 21:55 Total Protein 6.8 g/dL (6.4-8.2) 08/03/20 04:05 Albumin 2.8 g/dL (3.4-5.0) L 08/03/20 04:05 Globulin 4.0 g/dL (2.5-4.5) 08/03/20 04:05 Albumin/Globulin Ratio 0.7 Ratio (1.1-2.1) L 08/03/20 04:05 Specimen Type Catherized urine 07/30/20 17:15 Urine Color Yellow (YELLOW) 07/30/20 17:15 Urine Appearance Hazy (CLEAR) 07/30/20 17:15 Urine pH 5.0 (5.0 - 8.0) 07/30/20 17:15 Ur Specific [place] 1.030 (1.000-1.030) 07/30/20 17:15 Urine Protein 3+ (NEGATIVE) 07/30/20 17:15 Urine Glucose (UA) Negative (NEGATIVE) 07/30/20 17:15 Urine Ketones Negative (NEGATIVE) 07/30/20 17:15 Urine Occult Blood 1+ (NEGATIVE) 07/30/20 17:15 Urine Nitrite Negative (NEGATIVE) 07/30/20 17:15 Urine Bilirubin Negative (NEGATIVE) 07/30/20 17:15 Urine Urobilinogen Normal (NORMAL) 07/30/20 17:15 Ur Leukocyte Esterase Negative (NEGATIVE) 07/30/20 17:15 Urine RBC None seen /HPF (0-3) 07/30/20 17:15 Urine WBC 3-5 /HPF (0-5) 07/30/20 17:15 Ur Squamous Epith Cells Few /HPF (NEGATIVE) 07/30/20 17:15 Calcium Oxalate Crystal Few /HPF (NEGATIVE) 07/30/20 17:15 Urine Bacteria Trace /HPF (NEGATIVE) 07/30/20 17:15 Hyaline Casts Few /LPF (NEGATIVE) 07/30/20 17:15 Urine Mucus Few /HPF (NEGATIVE) 07/30/20 17:15 Ur Culture Indicated? Yes/culture set up 07/30/20 17:15 SARS-CoV-2 (PCR) Negative (NEGATIVE) 07/29/20 23:30 - Plan (1) COPD exacerbation Status: Acute Plan: NS AT K[facility], DOXYCYCLINE 100MG IV Q12H, PULMICORT NEBS BID, DUONEBS Q4H, ELIQUIS 5ML PO BID, ROBITUSSIN DM 10 ML PO Q4H PRN, PROTONIX 40MG IV DIALY, AND SOLU-MEDROL 80MG IV Q8H. HIS HOME MEDICATIONS WERE RESUMED (2) Acute bronchitis Status: Acute Qualifiers: Bronchitis organism: unspecified organism Qualified Code(s): J20.9 - Acute bronchitis, unspecified
[2020-08-03] MEDS: MIRALAX POWDER (1 DOSE 17 G) PO SCH (20:37)
[2020-08-03] MEDS: ROCEPHIN VIAL 1 GRAM 1 G in NS 100 ML IV + SPIKE MINIBAG* 100 ML IV SCH (20:37)
[2020-08-03] MEDS: MILK OF MAGNESIA PO SCH (20:37)
[2020-08-03] MEDS: NORCO 5/325 MG TAB PO PRN (20:38)
[2020-08-03] MEDS: ROBITUSSIN DM PO PRN (20:38)
[2020-08-04] MEDS: DUONEB 0.5 MG/3 MG (3 mL) NEB SCH ×6 (01:57→21:30)
[2020-08-04] MEDS: SOLU-Medrol 125 MG VIAL IVP SCH ×3 (05:03→21:40)
--- NOTE | 2020-08-04 05:23 | RAD ---
HISTORYSOBSTUDYCHEST, 1 [id number]/2020FINDINGSThe trachea is midline. The cardiac silhouette is stable. Low lung volume with mild bibasilar atelectasis versus infiltrates, unchanged. No pneumothorax or pleural effusion. Right chest wall MediPort unchanged.. The bony thorax is unremarkable.IMPRESSIONNo significant interval change.Electronically signed by: Caryn Leach (Aug 04, 2020 05:20:42)
[2020-08-04 06:04] LABS: BASOPHILS % (AUTO) 0.2 % (0.2-1.0); HEMATOCRIT 50.9 % (42.0-54.0); HEMOGLOBIN 16.7 g/dL (13.5-18.0); LYMPHOCYTES # (AUTO) 0.3 X10^3/uL (1.3-2.9); LYMPHOCYTES % (AUTO) 2.5 % (21.0-51.0); MEAN CORPUSCULAR HEMOGLOBIN 28.6 pg (27.0-34.0); MEAN CORPUSCULAR HGB CONC 32.7 g/dL (33.0-35.0); MEAN CORPUSCULAR VOLUME 87.4 fL (80.0-100.0); MEAN PLATELET VOLUME 7.8 fL (7.4-11.0); MONOCYTES # (AUTO) 0.4 x10^3/uL (0.3-0.8); MONOCYTES % (AUTO) 4.3 % (0.0-13.0); NEUTROPHILS # (AUTO) 9.7 x10^3/uL (2.2-4.8); PLATELET COUNT 183 X10^3/uL (150.0-450.0); RED BLOOD COUNT 5.83 X10^6/uL (4.7-6.0); RED CELL DISTRIBUTION WIDTH 15.2 % (11.6-16.5); WHITE BLOOD COUNT 10.5 X10^3/uL (3.6-10.0)
[2020-08-04 06:05] LABS: ALANINE AMINOTRANSFERASE 265 Units/L (12-78); ALBUMIN 2.8 g/dL (3.4-5.0); ALKALINE PHOSPHATASE 54 Units/L (46-116); ASPARTATE AMINO TRANSFERASE 103 Units/L (15-37); BLOOD UREA NITROGEN 25 mg/dL (7-18); CARBON DIOXIDE 33.5 mmol/L (21-32); CHLORIDE 102 mmol/L (98-107); COR NA(FOR HYPERGLY) 142 mmol/L (136-145); CREATININE 0.92 mg/dL (0.70-1.30); SODIUM 141 mmol/L (136-145); TOTAL PROTEIN 6.9 g/dL (6.4-8.2); eGFR NON BLACK RACES > 60 (>60)
[2020-08-04 07:15] LABS: PLATELET MORPHOLOGY COMMENT NORMAL (NORMAL)
[2020-08-04] MEDS: FLOMAX PO SCH (09:17)
[2020-08-04] MEDS: ELIQUIS PO SCH (09:17)
[2020-08-04] MEDS: NEURONTIN CAP 100 MG PO SCH ×2 (09:18→21:40)
[2020-08-04] MEDS: PROTONIX INJ 40 MG VIAL IVP SCH (09:18)
[2020-08-04] MEDS: NORVASC TAB 5 MG PO SCH (09:18)
[2020-08-04] MEDS: MILK OF MAGNESIA PO SCH ×2 (09:18→21:42)
[2020-08-04] MEDS: VIBRAMYCIN 100 MG in D5W 250 ML IV 250 ML IV SCH ×2 (09:18→23:30)
[2020-08-04 09:20] LABS: ABG BASE EXCESS 13.5 mmol/L (-2.0-2.0)
[2020-08-04 09:21] LABS: ABG ALLEN TEST POS; ABG HCO3 39.3 mmol/L (22-26)
[2020-08-04] MEDS: PULMICORT NEB TX 0.5 MG NEB SCH ×2 (09:45→21:30)
--- NOTE | 2020-08-04 18:07 | CT ---
CTA CHESTCLINICAL INDICATION: HypoxiaPROCEDURE: Non gated axial images of the chest were obtained with intravenous contrast according to pulmonary embolism protocol. MIPS were reconstructed Dose reduction techniques including Automated Exposure Control (AEC) and adjustment of mA and kV were utlized.COMPARISON:NoneFINDINGS:There are some small segmental filling defects within the left lower lobe pulmonary arteries for example on series 4, image 61 and image 67. Atelectasis of the left lung base.The heart is normal in size . No pericardial effusion. Severe coronary calcification. No suspicious mediastinal or axillary lymph nodes . No focal consolidations, pleural effusions or pneumothorax .Airways are patent . No suspicious pulmonary nodules or masses .Limited images of the upper abdomen are unremarkable.No aggressive osseous lesions.IMPRESSION:1. Small, segmental left lower lobe pulmonary emboli without definite evidence of right heart strain.Electronically signed by: BROOKE ROCA (Aug 04, 2020 18:05:28)
[2020-08-04 19:57] LABS: HEMATOCRIT 49.8 % (42.0-54.0); HEMOGLOBIN 16.1 g/dL (13.5-18.0)
[2020-08-04] MEDS ORDERED: HEPARIN SODIUM INJ 5000 UNITS IVP ONE (21:15)
[2020-08-04] MEDS: HEPARIN SODIUM IN D5W 25,000 UNITS/500 ML BAG IV PRN (21:15)
[2020-08-04] MEDS ORDERED: HEPARIN SODIUM INJ 5000 UNITS ONE (21:22)
[2020-08-04] MEDS ORDERED: HEPARIN SODIUM IN D5W 25,000 UNITS/500 ML BAG IV ONE (21:22)
[2020-08-04] MEDS: ROBITUSSIN DM PO PRN (21:42)
[2020-08-04] MEDS: MIRALAX POWDER (1 DOSE 17 G) PO SCH (21:42)
[2020-08-04] MEDS: ROCEPHIN VIAL 1 GRAM 1 G in NS 100 ML IV + SPIKE MINIBAG* 100 ML IV SCH (22:30)
[2020-08-05] MEDS: DUONEB 0.5 MG/3 MG (3 mL) NEB SCH ×5 (01:05→20:20)
[2020-08-05 03:14] LABS: BASOPHILS % (AUTO) 0.2 % (0.2-1.0); EOSINOPHILS % (AUTO) 0.1 % (0.9-2.9); HEMOGLOBIN 15.4 g/dL (13.5-18.0); LYMPHOCYTES # (AUTO) 0.1 X10^3/uL (1.3-2.9); LYMPHOCYTES % (AUTO) 1.1 % (21.0-51.0); MEAN CORPUSCULAR HEMOGLOBIN 28.7 pg (27.0-34.0); MEAN CORPUSCULAR HGB CONC 32.8 g/dL (33.0-35.0); MEAN CORPUSCULAR VOLUME 87.5 fL (80.0-100.0); MEAN PLATELET VOLUME 8.1 fL (7.4-11.0); MONOCYTES # (AUTO) 0.3 x10^3/uL (0.3-0.8); MONOCYTES % (AUTO) 2.4 % (0.0-13.0); NEUTROPHILS # (AUTO) 11.1 x10^3/uL (2.2-4.8); NEUTROPHILS % (AUTO) 96.2 % (42.0-75.0); PLATELET COUNT 153 X10^3/uL (150.0-450.0); RED BLOOD COUNT 5.37 X10^6/uL (4.7-6.0); RED CELL DISTRIBUTION WIDTH 15.2 % (11.6-16.5); WHITE BLOOD COUNT 11.5 X10^3/uL (3.6-10.0)
[2020-08-05 03:24] LABS: ALANINE AMINOTRANSFERASE 302 Units/L (12-78); ALBUMIN 2.6 g/dL (3.4-5.0); ALKALINE PHOSPHATASE 54 Units/L (46-116); ASPARTATE AMINO TRANSFERASE 82 Units/L (15-37); BLOOD UREA NITROGEN 23 mg/dL (7-18); CALCIUM 8.6 mg/dL (8.5-10.1); CARBON DIOXIDE 34.8 mmol/L (21-32); CHLORIDE 100 mmol/L (98-107); COR CA(FOR HYPOALB) 9.7 mg/dL (8.5-10.1); COR NA(FOR HYPERGLY) 143 mmol/L (136-145); CREATININE 1.04 mg/dL (0.70-1.30); SODIUM 141 mmol/L (136-145); TOTAL PROTEIN 6.4 g/dL (6.4-8.2); eGFR NON BLACK RACES > 60 (>60)
[2020-08-05 03:38] LABS: PLATELET MORPHOLOGY COMMENT NORMAL (NORMAL)
[2020-08-05] MEDS: HEPARIN SODIUM IN D5W 25,000 UNITS/500 ML BAG IV PRN ×2 (04:30→17:40)
[2020-08-05] MEDS: NS 250 ML IV 250 ML IV PRN (05:50)
[2020-08-05] MEDS: SOLU-Medrol 125 MG VIAL IVP SCH ×3 (05:50→21:45)
[2020-08-05] MEDS: MILK OF MAGNESIA PO SCH ×2 (08:30→20:10)
[2020-08-05] MEDS: FLOMAX PO SCH (08:42)
[2020-08-05] MEDS: NEURONTIN CAP 100 MG PO SCH ×2 (08:43→20:13)
[2020-08-05] MEDS: NORVASC TAB 5 MG PO SCH (08:44)
[2020-08-05] MEDS: VIBRAMYCIN 100 MG in D5W 250 ML IV 250 ML IV SCH ×2 (08:44→21:44)
[2020-08-05] MEDS: PROTONIX INJ 40 MG VIAL IVP SCH (08:44)
[2020-08-05] MEDS: PULMICORT NEB TX 0.5 MG NEB SCH ×2 (08:56→20:20)
[2020-08-05 13:30] LABS: ABG BASE EXCESS 10.3 mmol/L (-2.0-2.0)
[2020-08-05 13:31] LABS: ABG ALLEN TEST POS; ABG HCO3 36.5 mmol/L (22-26)
[2020-08-05] MEDS: MIRALAX POWDER (1 DOSE 17 G) PO SCH (20:10)
[2020-08-05] MEDS: ROCEPHIN VIAL 1 GRAM 1 G in NS 100 ML IV + SPIKE MINIBAG* 100 ML IV SCH (20:11)
[2020-08-05] MEDS: TUSSIONEX PENNKINETIC SUSP PO PRN (20:13)
[2020-08-06] MEDS: DUONEB 0.5 MG/3 MG (3 mL) NEB SCH ×6 (00:13→20:43)
[2020-08-06] MEDS: SOLU-Medrol 125 MG VIAL IVP SCH ×3 (05:26→22:25)
[2020-08-06 07:18] LABS: BASOPHILS % (AUTO) 0.1 % (0.2-1.0); HEMATOCRIT 47.2 % (42.0-54.0); HEMOGLOBIN 15.1 g/dL (13.5-18.0); LYMPHOCYTES # (AUTO) 0.3 X10^3/uL (1.3-2.9); LYMPHOCYTES % (AUTO) 2.5 % (21.0-51.0); MEAN CORPUSCULAR HEMOGLOBIN 28.4 pg (27.0-34.0); MEAN CORPUSCULAR VOLUME 88.7 fL (80.0-100.0); MEAN PLATELET VOLUME 8.5 fL (7.4-11.0); MONOCYTES # (AUTO) 0.5 x10^3/uL (0.3-0.8); MONOCYTES % (AUTO) 4.8 % (0.0-13.0); NEUTROPHILS # (AUTO) 9.9 x10^3/uL (2.2-4.8); NEUTROPHILS % (AUTO) 92.6 % (42.0-75.0); PLATELET COUNT 146 X10^3/uL (150.0-450.0); RED BLOOD COUNT 5.32 X10^6/uL (4.7-6.0); RED CELL DISTRIBUTION WIDTH 15.1 % (11.6-16.5); WHITE BLOOD COUNT 10.7 X10^3/uL (3.6-10.0)
[2020-08-06 07:24] LABS: ALANINE AMINOTRANSFERASE 307 Units/L (12-78); ALBUMIN 2.7 g/dL (3.4-5.0); ALKALINE PHOSPHATASE 53 Units/L (46-116); ASPARTATE AMINO TRANSFERASE 65 Units/L (15-37); BLOOD UREA NITROGEN 23 mg/dL (7-18); CALCIUM 8.9 mg/dL (8.5-10.1); CARBON DIOXIDE 36.1 mmol/L (21-32); CHLORIDE 103 mmol/L (98-107); COR CA(FOR HYPOALB) 9.9 mg/dL (8.5-10.1); COR NA(FOR HYPERGLY) 143 mmol/L (136-145); CREATININE 0.95 mg/dL (0.70-1.30); SODIUM 142 mmol/L (136-145); TOTAL PROTEIN 6.3 g/dL (6.4-8.2); eGFR NON BLACK RACES > 60 (>60)
[2020-08-06 07:31] LABS: BAND NEUTROPHILS % 1 % (0-10)
[2020-08-06 07:32] LABS: PLATELET MORPHOLOGY COMMENT NORMAL (NORMAL)
[2020-08-06] MEDS: PULMICORT NEB TX 0.5 MG NEB SCH ×2 (09:07→20:43)
[2020-08-06 09:12] LABS: ABG ALLEN TEST POS; ABG HCO3 34.2 mmol/L (22-26)
[2020-08-06] MEDS: FLOMAX PO SCH (09:32)
[2020-08-06] MEDS: LASIX IVP SCH ×2 (09:33→17:23)
[2020-08-06] MEDS: MILK OF MAGNESIA PO SCH ×3 (09:33→22:53)
[2020-08-06] MEDS: NORVASC TAB 5 MG PO SCH (09:33)
[2020-08-06] MEDS: NEURONTIN CAP 100 MG PO SCH ×2 (09:33→20:21)
[2020-08-06] MEDS: VIBRAMYCIN 100 MG in D5W 250 ML IV 250 ML IV SCH ×2 (09:33→20:21)
[2020-08-06] MEDS: PROTONIX INJ 40 MG VIAL IVP SCH (13:41)
[2020-08-06] MEDS: HEPARIN SODIUM IN D5W 25,000 UNITS/500 ML BAG IV PRN (15:16)
[2020-08-06] MEDS: ROCEPHIN VIAL 1 GRAM 1 G in NS 100 ML IV + SPIKE MINIBAG* 100 ML IV SCH (22:30)
[2020-08-06] MEDS: MIRALAX POWDER (1 DOSE 17 G) PO SCH (22:54)
[2020-08-07] MEDS: TUSSIONEX PENNKINETIC SUSP PO PRN (03:47)
[2020-08-07 05:27] LABS: BASOPHILS % (AUTO) 0.1 % (0.2-1.0); HEMATOCRIT 46.6 % (42.0-54.0); HEMOGLOBIN 15.2 g/dL (13.5-18.0); LYMPHOCYTES # (AUTO) 0.3 X10^3/uL (1.3-2.9); LYMPHOCYTES % (AUTO) 2.6 % (21.0-51.0); MEAN CORPUSCULAR HEMOGLOBIN 28.9 pg (27.0-34.0); MEAN CORPUSCULAR HGB CONC 32.7 g/dL (33.0-35.0); MEAN CORPUSCULAR VOLUME 88.5 fL (80.0-100.0); MEAN PLATELET VOLUME 8.9 fL (7.4-11.0); MONOCYTES # (AUTO) 0.4 x10^3/uL (0.3-0.8); NEUTROPHILS % (AUTO) 93.3 % (42.0-75.0); PLATELET COUNT 152 X10^3/uL (150.0-450.0); RED BLOOD COUNT 5.27 X10^6/uL (4.7-6.0); RED CELL DISTRIBUTION WIDTH 15.1 % (11.6-16.5); WHITE BLOOD COUNT 9.7 X10^3/uL (3.6-10.0)
[2020-08-07 05:30] LABS: ALANINE AMINOTRANSFERASE 393 Units/L (12-78); ALBUMIN 2.7 g/dL (3.4-5.0); ALKALINE PHOSPHATASE 54 Units/L (46-116); ASPARTATE AMINO TRANSFERASE 100 Units/L (15-37); BLOOD UREA NITROGEN 26 mg/dL (7-18); CALCIUM 8.8 mg/dL (8.5-10.1); CARBON DIOXIDE 39.1 mmol/L (21-32); CHLORIDE 100 mmol/L (98-107); COR CA(FOR HYPOALB) 9.8 mg/dL (8.5-10.1); COR NA(FOR HYPERGLY) 143 mmol/L (136-145); CREATININE 0.95 mg/dL (0.70-1.30); SODIUM 142 mmol/L (136-145); TOTAL PROTEIN 5.8 g/dL (6.4-8.2); eGFR NON BLACK RACES > 60 (>60)
[2020-08-07 05:42] LABS: PLATELET MORPHOLOGY COMMENT NORMAL (NORMAL)
[2020-08-07] MEDS: DUONEB 0.5 MG/3 MG (3 mL) NEB SCH ×4 (05:54→12:07)
[2020-08-07] MEDS: SOLU-Medrol 125 MG VIAL IVP SCH (06:20)
[2020-08-07] MEDS: FLOMAX PO SCH (08:07)
[2020-08-07] MEDS: NORVASC TAB 5 MG PO SCH (08:07)
[2020-08-07] MEDS: NEURONTIN CAP 100 MG PO SCH (08:07)
[2020-08-07] MEDS: PROTONIX INJ 40 MG VIAL IVP SCH (08:07)
[2020-08-07] MEDS: VIBRAMYCIN 100 MG in D5W 250 ML IV 250 ML IV SCH (08:08)
[2020-08-07] MEDS: MILK OF MAGNESIA PO SCH (08:18)
[2020-08-07] MEDS ORDERED: ELIQUIS PO SCH (09:00)
[2020-08-07] MEDS: PULMICORT NEB TX 0.5 MG NEB SCH (09:40)
[2020-08-07 14:24] VITALS: BP 119/57
[2020-08-14] MEDS ORDERED: ELIQUIS PO SCH (09:00)
== END 2020-08-07 14:20 | disposition home or self-care (01) | DRG 190 ==
LOC: ER 21:31 → MED/SURG 07-30 01:27 → ICU 08-04 19:30
PROVIDERS: ADMIT Internal Medicine; ATTEND Internal Medicine
DX: R26.89 Other abnormalities of gait and mobility; J20.8 Acute bronchitis due to other specified organisms; Z86.718 Personal history of other venous thrombosis and embolism; J44.0 Chronic obstructive pulmonary disease with (acute) lower respiratory infection; Z85.038 Personal history of other malignant neoplasm of large intestine; M89.49 Other hypertrophic osteoarthropathy, multiple sites; J44.1 Chronic obstructive pulmonary disease with (acute) exacerbation; I26.99 Other pulmonary embolism without acute cor pulmonale; Z92.21 Personal history of antineoplastic chemotherapy; Z79.01 Long term (current) use of anticoagulants; Z20.828 Contact with and (suspected) exposure to other viral communicable diseases; J96.21 Acute and chronic respiratory failure with hypoxia

== ENCOUNTER 2020-10-22 09:14 | Inpatient (IN) ==
[2020-10-22] MEDS ORDERED: DUONEB 0.5 MG/3 MG (3 mL) NEB ONE ×2 (09:41→09:45)
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
[2020-10-22 10:07] LABS: BASOPHILS % (AUTO) 0.5 % (0.2-1.0); EOSINOPHILS # (AUTO) 0.1 x10^3/uL (0.0-0.2); EOSINOPHILS % (AUTO) 0.7 % (0.9-2.9); HEMATOCRIT 46.7 % (42.0-54.0); HEMOGLOBIN 15.1 g/dL (13.5-18.0); LYMPHOCYTES # (AUTO) 1.1 X10^3/uL (1.3-2.9); LYMPHOCYTES % (AUTO) 15.9 % (21.0-51.0); MEAN CORPUSCULAR HEMOGLOBIN 27.9 pg (27.0-34.0); MEAN CORPUSCULAR HGB CONC 32.2 g/dL (33.0-35.0); MEAN CORPUSCULAR VOLUME 86.5 fL (80.0-100.0); MEAN PLATELET VOLUME 7.5 fL (7.4-11.0); MONOCYTES # (AUTO) 0.6 x10^3/uL (0.3-0.8); MONOCYTES % (AUTO) 8.3 % (0.0-13.0); NEUTROPHILS # (AUTO) 5.4 x10^3/uL (2.2-4.8); NEUTROPHILS % (AUTO) 74.6 % (42.0-75.0); PLATELET COUNT 184 X10^3/uL (150.0-450.0); RED CELL DISTRIBUTION WIDTH 15.3 % (11.6-16.5); WHITE BLOOD COUNT 7.2 X10^3/uL (3.6-10.0)
[2020-10-22 10:22] LABS: ABG BASE EXCESS 10.1 mmol/L (-2.0-2.0)
[2020-10-22 10:23] LABS: ABG HCO3 39.3 mmol/L (22-26)
--- NOTE | 2020-10-22 10:28 | RAD ---
HISTORYHypoxiaSTUDYChest AP [id number]/2020FINDINGSThere is a port present on the right. The heart is within normal limits in size. The herlinda are normal. The lungs are free of acute alveolar infiltrates. There is minim al subsegmental atelectasis in the right lung base. The right hemidiaphragm is mildly elevated. No pl eural effusions are identified. Bony thorax is unremarkable.IMPRESSIONNo acute infiltratesMild subseg mental atelectasis right lung baseElectronically signed by: ANDREY NGUYEN (Oct 22, 2020 10:26:46)
[2020-10-22 10:47] LABS: ALANINE AMINOTRANSFERASE 28 Units/L (12-78); ALBUMIN 3.1 g/dL (3.4-5.0); ALKALINE PHOSPHATASE 58 Units/L (46-116); ASPARTATE AMINO TRANSFERASE 28 Units/L (15-37); BLOOD UREA NITROGEN 12 mg/dL (7-18); CALCIUM 9.1 mg/dL (8.5-10.1); CARBON DIOXIDE 34.6 mmol/L (21-32); CHLORIDE 103 mmol/L (98-107); COR CA(FOR HYPOALB) 9.8 mg/dL (8.5-10.1); SODIUM 140 mmol/L (136-145); TOTAL PROTEIN 6.6 g/dL (6.4-8.2); eGFR NON BLACK RACES > 60 (>60)
[2020-10-22] MEDS ORDERED: LASIX IVP ONE ×2 (11:35→11:36)
[2020-10-22 12:03] LABS: BILIRUBIN,URINE NEGATIVE (NEGATIVE); BLOOD/HEMOGLOBIN,URINE 1+ (NEGATIVE); GLUCOSE, URINE NEGATIVE (NEGATIVE); KETONES,URINE NEGATIVE (NEGATIVE); LEUKOCYTE ESTERASE ,URINE NEGATIVE (NEGATIVE); NITRITES,URINE NEGATIVE (NEGATIVE); PROTEIN,URINE 2+ (NEGATIVE); UROBILINOGEN,URINE NORMAL (NORMAL)
[2020-10-22 12:15] LABS: APPEARANCE,URINE CLOUDY (CLEAR); COLOR,URINE DARK YELLOW (YELLOW)
[2020-10-22 12:16] LABS: BACTERIA,URINE TRACE /HPF (NEGATIVE); HYALINE CASTS, URINE FEW /LPF (NEGATIVE); MUCUS,URINE FEW /HPF (NEGATIVE); SQUAMOUS EPITHELIAL CELL,UR MODERATE /HPF (NEGATIVE)
[2020-10-22 14:55] LABS: ABG BASE EXCESS 7.6 mmol/L (-2.0-2.0)
[2020-10-22 14:57] LABS: ABG ALLEN TEST POS; ABG HCO3 39.6 mmol/L (22-26)
[2020-10-22 17:39] LABS: ABG BASE EXCESS 10.8 mmol/L (-2.0-2.0)
[2020-10-22 17:40] LABS: ABG ALLEN TEST POS; ABG HCO3 40.9 mmol/L (22-26)
[2020-10-22] MEDS: DUONEB 0.5 MG/3 MG (3 mL) NEB SCH ×2 (19:23→20:30)
[2020-10-22] MEDS: PULMICORT NEB TX 0.5 MG NEB SCH (20:30)
[2020-10-22] MEDS: NEURONTIN CAP 100 MG PO SCH (23:14)
[2020-10-22] MEDS: FLOMAX PO SCH (23:14)
[2020-10-22] MEDS: ELIQUIS PO SCH (23:14)
[2020-10-23] MEDS: DUONEB 0.5 MG/3 MG (3 mL) NEB SCH ×6 (00:40→20:35)
[2020-10-23 04:50] LABS: ABG BASE EXCESS 12.8 mmol/L (-2.0-2.0)
[2020-10-23 04:52] LABS: ABG ALLEN TEST POSS
[2020-10-23 06:58] LABS: ALANINE AMINOTRANSFERASE 21 Units/L (12-78); ALKALINE PHOSPHATASE 60 Units/L (46-116); ASPARTATE AMINO TRANSFERASE 32 Units/L (15-37); BLOOD UREA NITROGEN 17 mg/dL (7-18); CALCIUM 9.5 mg/dL (8.5-10.1); CARBON DIOXIDE 34.1 mmol/L (21-32); CHLORIDE 103 mmol/L (98-107); COR CA(FOR HYPOALB) 10.3 mg/dL (8.5-10.1); CREATININE 1.16 mg/dL (0.70-1.30); SODIUM 141 mmol/L (136-145); TOTAL PROTEIN 6.6 g/dL (6.4-8.2); eGFR NON BLACK RACES > 60 (>60)
[2020-10-23 07:02] LABS: BASOPHILS # (AUTO) 0.1 X10^3/uL (0.0-0.1); BASOPHILS % (AUTO) 0.6 % (0.2-1.0); EOSINOPHILS % (AUTO) 0.3 % (0.9-2.9); HEMATOCRIT 47.4 % (42.0-54.0); HEMOGLOBIN 15.2 g/dL (13.5-18.0); LYMPHOCYTES # (AUTO) 1.4 X10^3/uL (1.3-2.9); MEAN CORPUSCULAR HGB CONC 32.1 g/dL (33.0-35.0); MEAN CORPUSCULAR VOLUME 87.2 fL (80.0-100.0); MEAN PLATELET VOLUME 8.3 fL (7.4-11.0); MONOCYTES % (AUTO) 10.4 % (0.0-13.0); NEUTROPHILS % (AUTO) 73.7 % (42.0-75.0); PLATELET COUNT 185 X10^3/uL (150.0-450.0); RED BLOOD COUNT 5.43 X10^6/uL (4.7-6.0); RED CELL DISTRIBUTION WIDTH 15.4 % (11.6-16.5); WHITE BLOOD COUNT 9.6 X10^3/uL (3.6-10.0)
[2020-10-23] MEDS: PULMICORT NEB TX 0.5 MG NEB SCH ×2 (09:31→20:35)
[2020-10-23] MEDS: ELIQUIS PO SCH ×2 (10:03→21:45)
[2020-10-23] MEDS: FLOMAX PO SCH (10:03)
[2020-10-23] MEDS: VSL#3 PO SCH (10:04)
[2020-10-23] MEDS: LEVAQUIN PREMIX IV 250 MG 250 MG/50 ML BAG IV SCH (10:04)
[2020-10-23] MEDS: SOLU-Medrol 40 MG VIAL IVP SCH ×2 (10:04→16:30)
[2020-10-23] MEDS: NEURONTIN CAP 100 MG PO SCH ×2 (10:04→21:45)
[2020-10-23] MEDS: PROTONIX INJ 40 MG VIAL IVP SCH ×2 (13:34→21:45)
[2020-10-23 20:27] VITALS: BMI 38.2
[2020-10-24] MEDS: DUONEB 0.5 MG/3 MG (3 mL) NEB SCH ×6 (00:19→20:00)
[2020-10-24] MEDS: SOLU-Medrol 40 MG VIAL IVP SCH ×2 (01:45→09:35)
[2020-10-24] MEDS: PULMICORT NEB TX 0.5 MG NEB SCH ×2 (08:00→20:00)
[2020-10-24] MEDS: FLOMAX PO SCH (09:30)
[2020-10-24] MEDS: ELIQUIS PO SCH ×2 (09:30→21:45)
[2020-10-24] MEDS: VSL#3 PO SCH (09:30)
[2020-10-24] MEDS: PROTONIX INJ 40 MG VIAL IVP SCH ×2 (09:31→21:45)
[2020-10-24] MEDS: LEVAQUIN PREMIX IV 250 MG 250 MG/50 ML BAG IV SCH (09:31)
[2020-10-24] MEDS: NEURONTIN CAP 100 MG PO SCH ×2 (09:31→21:45)
[2020-10-24 09:58] LABS: BASOPHILS % (AUTO) 0.3 % (0.2-1.0); EOSINOPHILS % (AUTO) 0.1 % (0.9-2.9); HEMATOCRIT 45.4 % (42.0-54.0); LYMPHOCYTES # (AUTO) 1.4 X10^3/uL (1.3-2.9); LYMPHOCYTES % (AUTO) 11.4 % (21.0-51.0); MEAN CORPUSCULAR HEMOGLOBIN 28.4 pg (27.0-34.0); MEAN PLATELET VOLUME 7.7 fL (7.4-11.0); MONOCYTES # (AUTO) 0.9 x10^3/uL (0.3-0.8); MONOCYTES % (AUTO) 7.7 % (0.0-13.0); NEUTROPHILS # (AUTO) 9.8 x10^3/uL (2.2-4.8); NEUTROPHILS % (AUTO) 80.5 % (42.0-75.0); PLATELET COUNT 188 X10^3/uL (150.0-450.0); RED BLOOD COUNT 5.28 X10^6/uL (4.7-6.0); RED CELL DISTRIBUTION WIDTH 15.3 % (11.6-16.5); WHITE BLOOD COUNT 12.2 X10^3/uL (3.6-10.0)
[2020-10-24 10:10] LABS: ALANINE AMINOTRANSFERASE 22 Units/L (12-78); ALKALINE PHOSPHATASE 54 Units/L (46-116); ASPARTATE AMINO TRANSFERASE 20 Units/L (15-37); BLOOD UREA NITROGEN 28 mg/dL (7-18); CALCIUM 9.5 mg/dL (8.5-10.1); CARBON DIOXIDE 34.3 mmol/L (21-32); CHLORIDE 102 mmol/L (98-107); COR CA(FOR HYPOALB) 10.3 mg/dL (8.5-10.1); SODIUM 141 mmol/L (136-145); TOTAL PROTEIN 6.7 g/dL (6.4-8.2); eGFR NON BLACK RACES > 60 (>60)
[2020-10-24 10:35] LABS: ABG BASE EXCESS 13.5 mmol/L (-2.0-2.0)
[2020-10-24 10:36] LABS: ABG ALLEN TEST POS; ABG HCO3 40.1 mmol/L (22-26)
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
[2020-10-25] MEDS: DUONEB 0.5 MG/3 MG (3 mL) NEB SCH ×6 (00:24→20:05)
[2020-10-25] MEDS: SOLU-Medrol 40 MG VIAL IVP SCH ×4 (01:03→16:43)
[2020-10-25 06:54] LABS: BASOPHILS % (AUTO) 0.3 % (0.2-1.0); HEMATOCRIT 43.2 % (42.0-54.0); HEMOGLOBIN 14.1 g/dL (13.5-18.0); LYMPHOCYTES # (AUTO) 0.7 X10^3/uL (1.3-2.9); LYMPHOCYTES % (AUTO) 6.7 % (21.0-51.0); MEAN CORPUSCULAR HEMOGLOBIN 28.3 pg (27.0-34.0); MEAN CORPUSCULAR HGB CONC 32.7 g/dL (33.0-35.0); MEAN CORPUSCULAR VOLUME 86.5 fL (80.0-100.0); MEAN PLATELET VOLUME 8.5 fL (7.4-11.0); MONOCYTES # (AUTO) 0.3 x10^3/uL (0.3-0.8); NEUTROPHILS # (AUTO) 9.2 x10^3/uL (2.2-4.8); PLATELET COUNT 166 X10^3/uL (150.0-450.0); RED BLOOD COUNT 4.99 X10^6/uL (4.7-6.0); RED CELL DISTRIBUTION WIDTH 15.2 % (11.6-16.5); WHITE BLOOD COUNT 10.2 X10^3/uL (3.6-10.0)
[2020-10-25 07:20] LABS: ALANINE AMINOTRANSFERASE 24 Units/L (12-78); ALBUMIN 2.7 g/dL (3.4-5.0); ALKALINE PHOSPHATASE 51 Units/L (46-116); ASPARTATE AMINO TRANSFERASE 23 Units/L (15-37); BLOOD UREA NITROGEN 27 mg/dL (7-18); CALCIUM 9.3 mg/dL (8.5-10.1); CARBON DIOXIDE 32.9 mmol/L (21-32); CHLORIDE 105 mmol/L (98-107); COR CA(FOR HYPOALB) 10.3 mg/dL (8.5-10.1); COR NA(FOR HYPERGLY) 142 mmol/L (136-145); CREATININE 0.91 mg/dL (0.70-1.30); SODIUM 141 mmol/L (136-145); TOTAL PROTEIN 6.3 g/dL (6.4-8.2); eGFR NON BLACK RACES > 60 (>60)
[2020-10-25] MEDS: PROTONIX INJ 40 MG VIAL IVP SCH ×2 (09:45→21:28)
[2020-10-25] MEDS: PULMICORT NEB TX 0.5 MG NEB SCH ×2 (09:50→20:05)
[2020-10-25] MEDS: FLOMAX PO SCH (10:21)
[2020-10-25] MEDS: ELIQUIS PO SCH ×2 (10:21→21:27)
[2020-10-25] MEDS: LEVAQUIN PREMIX IV 250 MG 250 MG/50 ML BAG IV SCH (10:22)
[2020-10-25] MEDS: NEURONTIN CAP 100 MG PO SCH ×2 (10:22→21:28)
[2020-10-25] MEDS: VSL#3 PO SCH (10:23)
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
[2020-10-25] MEDS ORDERED: BUTT CREAM (COMPOUND) TOP PRN (23:43)
[2020-10-26] MEDS: DUONEB 0.5 MG/3 MG (3 mL) NEB SCH ×6 (00:30→20:25)
[2020-10-26] MEDS: SOLU-Medrol 40 MG VIAL IVP SCH ×3 (01:48→17:45)
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
[2020-10-26 06:55] LABS: BASOPHILS % (AUTO) 0.1 % (0.2-1.0); HEMATOCRIT 46.9 % (42.0-54.0); LYMPHOCYTES # (AUTO) 0.3 X10^3/uL (1.3-2.9); LYMPHOCYTES % (AUTO) 2.8 % (21.0-51.0); MEAN CORPUSCULAR HEMOGLOBIN 27.9 pg (27.0-34.0); MEAN CORPUSCULAR HGB CONC 31.9 g/dL (33.0-35.0); MEAN CORPUSCULAR VOLUME 87.3 fL (80.0-100.0); MEAN PLATELET VOLUME 8.4 fL (7.4-11.0); MONOCYTES # (AUTO) 0.3 x10^3/uL (0.3-0.8); MONOCYTES % (AUTO) 2.8 % (0.0-13.0); NEUTROPHILS # (AUTO) 8.6 x10^3/uL (2.2-4.8); NEUTROPHILS % (AUTO) 94.3 % (42.0-75.0); PLATELET COUNT 172 X10^3/uL (150.0-450.0); RED BLOOD COUNT 5.37 X10^6/uL (4.7-6.0); RED CELL DISTRIBUTION WIDTH 15.6 % (11.6-16.5); WHITE BLOOD COUNT 9.2 X10^3/uL (3.6-10.0)
[2020-10-26 07:01] LABS: ALANINE AMINOTRANSFERASE 30 Units/L (12-78); ALBUMIN 2.9 g/dL (3.4-5.0); ALKALINE PHOSPHATASE 53 Units/L (46-116); ASPARTATE AMINO TRANSFERASE 21 Units/L (15-37); BLOOD UREA NITROGEN 19 mg/dL (7-18); CALCIUM 9.2 mg/dL (8.5-10.1); CARBON DIOXIDE 33.2 mmol/L (21-32); CHLORIDE 104 mmol/L (98-107); COR CA(FOR HYPOALB) 10.1 mg/dL (8.5-10.1); COR NA(FOR HYPERGLY) 145 mmol/L (136-145); CREATININE 0.97 mg/dL (0.70-1.30); SODIUM 144 mmol/L (136-145); TOTAL PROTEIN 6.6 g/dL (6.4-8.2); eGFR NON BLACK RACES > 60 (>60)
[2020-10-26 07:26] LABS: BAND NEUTROPHILS % 1 % (0-10); PLATELET MORPHOLOGY COMMENT NORMAL (NORMAL)
[2020-10-26] MEDS: PULMICORT NEB TX 0.5 MG NEB SCH ×2 (09:20→20:25)
[2020-10-26] MEDS: FLOMAX PO SCH (10:50)
[2020-10-26] MEDS: ELIQUIS PO SCH ×2 (10:50→21:30)
[2020-10-26] MEDS: NEURONTIN CAP 100 MG PO SCH ×2 (10:51→21:30)
[2020-10-26] MEDS: VSL#3 PO SCH (10:51)
[2020-10-26] MEDS: LEVAQUIN PREMIX IV 250 MG 250 MG/50 ML BAG IV SCH (10:51)
[2020-10-26] MEDS: PROTONIX INJ 40 MG VIAL IVP SCH ×2 (10:51→21:30)
--- NOTE | 2020-10-26 11:51 | PCM.PROG ---
Progress Note Progress Note for Day of Date of Exam: 10/26/20 Subjective Subjective: Pt is a 70 year old male past medical history of COPD(home O2 baseline 3L) admitted for COPD exacerbation. This morning patient reports feeling better. He is back to his baseline oxygen requirement. He is awaiting BiPAP from [facility] that will available Tuesday or Tuesday. He is rec eiving antibiotics Levaquin and IV Solumedrol, along with scheduled bronchodilators. Labs/imaging: Wbc 9.2, Hgb 15, Plt 172, Na 144, K 4.0, Cr 0.97, Glucose 156. CXR: Patchy basilar opacities unchanged from the prior without new acute abnormality. Continue current treatments. Monitor and follow up l abs/imaging in the morning. Past Medical Family Social History Past Med/Fam/Surg Hx: No changes since H&P Allergies: Allergies No Known Drug Allergies Allergy (Verified 09/04/20 12:49) Review of Systems ROS: No change since H&P Vital Signs and I&O's Vital Signs: Temperature 98.8 F Pulse Rate [Brachial] 93 Pulse Rate 89 Respiratory Rate 16 Blood Pressure [Left Arm] 116/58 Blood Pressure 124/81 O2 Sat by Pulse Oximetry 92 Intake and Output: Intake & Output 10/23/20 10/24/20 10/25/20 10/26/20 23:59 23:59 23:59 23:59 Intake Total 765 / 765 1230 / 1230 1270 / 1270 260 / 260 Output Total 800 / 800 1100 / 1100 1550 / 1550 300 / 300 Balance -35 / -35 130 / 130 -280 / -280 -40 / -40 Physical Exam Speech Pattern: Clear Laboratory and Diagnostics Result Diagrams: 10/26/20 05:08 10/26/20 05:08 Labs: Laboratory WBC 9.2 X10^3/uL (3.6-10.0) 10/26/20 05:08 RBC 5.37 X10^6/uL (4.7-6.0) 10/26/20 05:08 Hgb 15.0 g/dL (13.5-18.0) 10/26/20 05:08 Hct 46.9 % (42.0-54.0) 10/26/20 05:08 MCV 87.3 fL (80.0-100.0) 10/26/20 05:08 MCH 27.9 pg (27.0-34.0) 10/26/20 05:08 MCHC 31.9 g/dL (33.0-35.0) L 10/26/20 05:08 RDW 15.6 % (11.6-16.5) 10/26/20 05:08 Plt Count 172 X10^3/uL (150.0-450.0) 10/26/20 05:08 Plt Count Comment Adequate (ADEQUATE) 10/26/20 05:08 MPV 8.4 fL (7.4-11.0) 10/26/20 05:08 Neut % (Auto) 94.3 % (42.0-75.0) H 10/26/20 05:08 Lymph % (Auto) 2.8 % (21.0-51.0) L 10/26/20 05:08 [place] % (Auto) 2.8 % (0.0-13.0) 10/26/20 05:08 Eos % (Auto) 0.0 % (0.9-2.9) L 10/26/20 05:08 Baso % (Auto) 0.1 % (0.2-1.0) L 10/26/20 05:08 Neut # (Auto) 8.6 x10^3/uL (2.2-4.8) H 10/26/20 05:08 Lymph # (Auto) 0.3 X10^3/uL (1.3-2.9) L 10/26/20 05:08 [place] # (Auto) 0.3 x10^3/uL (0.3-0.8) 10/26/20 05:08 Eos # (Auto) 0.0 x10^3/uL (0.0-0.2) 10/26/20 05:08 Baso # (Auto) 0.0 X10^3/uL (0.0-0.1) 10/26/20 05:08 Absolute Nucleated RBC 0.1 /100WBC 10/26/20 05:08 Total Counted 100 10/26/20 05:08 Neutrophils % (Manual) 94 % (39-76) H 10/26/20 05:08 Band Neutrophils % 1 % (0-10) 10/26/20 05:08 Lymphocytes % (Manual) 3 % (13-43) L 10/26/20 05:08 Monocytes % (Manual) 2 % (4-9) L 10/26/20 05:08 Plt Morphology Comment Normal (NORMAL) 10/26/20 05:08 RBC Morphology Normal (NORMAL) 10/26/20 05:08 PT 16.0 SECONDS (11.8-14.3) 10/24/20 09:50 INR Target Range - 10/24/20 09:50 INR 1.32 (0.8-1.3) H 10/24/20 09:50 D-Dimer 0.47 ug/ml (0.0-0.57) 10/23/20 06:10 Sample Site Rr 10/24/20 10:30 ABG pH 7.440 (7.35-7.45) 10/24/20 10:30 ABG pCO2 59.0 mmHg (35.0-45.0) H* 10/24/20 10:30 ABG pO2 55.0 mmHg (80.0-100.0) L 10/24/20 10:30 ABG HCO3 40.1 mmol/L (22-26) H* 10/24/20 10:30 ABG O2 Saturation 89.0 % (90-100) L 10/24/20 10:30 ABG Base Excess 13.5 mmol/L (-2.0-2.0) H 10/24/20 10:30 Kris Test Pos 10/24/20 10:30 A-a Gradient 99.0 mmHg 10/24/20 10:30 FiO2 32.0 10/24/20 10:30 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 Sodium 144 mmol/L (136-145) 10/26/20 05:08 Corrected Sodium 145 mmol/L (136-145) 10/26/20 05:08 Potassium 4.0 mmol/L (3.5-5.1) 10/26/20 05:08 Chloride 104 mmol/L (98-107) 10/26/20 05:08 Carbon Dioxide 33.2 mmol/L (21-32) H 10/26/20 05:08 BUN 19 mg/dL (7-18) H 10/26/20 05:08 Creatinine 0.97 mg/dL (0.70-1.30) 10/26/20 05:08 Est GFR (MDRD) Af Amer > 60 (>60) 10/26/20 05:08 Est GFR (MDRD) Non-Af > 60 (>60) 10/26/20 05:08 Glucose 156 mg/dL (65-99) H 10/26/20 05:08 Calcium 9.2 mg/dL (8.5-10.1) 10/26/20 05:08 Corrected Calcium 10.1 mg/dL (8.5-10.1) 10/26/20 05:08 Total Bilirubin 0.20 mg/dL (0.2-1.0) 10/26/20 05:08 AST 21 Units/L (15-37) 10/26/20 05:08 ALT 30 Units/L (12-78) 10/26/20 05:08 Alkaline Phosphatase 53 Units/L (46-116) 10/26/20 05:08 B-Natriuretic Peptide 46.3 pg/mL (0-79) 10/22/20 09:55 Total Protein 6.6 g/dL (6.4-8.2) 10/26/20 05:08 Albumin 2.9 g/dL (3.4-5.0) L 10/26/20 05:08 Globulin 3.7 g/dL (2.5-4.5) 10/26/20 05:08 Albumin/Globulin Ratio 0.8 Ratio (1.1-2.1) L 10/26/20 05:08 Specimen Type Clean catch urine 10/22/20 11:53 Urine Color Dark yellow (YELLOW) 10/22/20 11:53 Urine Appearance Cloudy (CLEAR) 10/22/20 11:53 Urine pH 6.0 (5.0 - 8.0) 10/22/20 11:53 Ur Specific [place] 1.025 (1.000-1.030) 10/22/20 11:53 Urine Protein 2+ (NEGATIVE) 10/22/20 11:53 Urine Glucose (UA) Negative (NEGATIVE) 10/22/20 11:53 Urine Ketones Negative (NEGATIVE) 10/22/20 11:53 Urine Occult Blood 1+ (NEGATIVE) 10/22/20 11:53 Urine Nitrite Negative (NEGATIVE) 10/22/20 11:53 Urine Bilirubin Negative (NEGATIVE) 10/22/20 11:53 Urine Urobilinogen Normal (NORMAL) 10/22/20 11:53 Ur Leukocyte Esterase Negative (NEGATIVE) 10/22/20 11:53 Urine RBC 5-10 /HPF (0-3) A 10/22/20 11:53 Urine WBC 0-2 /HPF (0-5) 10/22/20 11:53 Ur Squamous Epith Cells Moderate /HPF (NEGATIVE) 10/22/20 11:53 Urine Bacteria Trace /HPF (NEGATIVE) 10/22/20 11:53 Hyaline Casts Few /LPF (NEGATIVE) 10/22/20 11:53 Urine Mucus Few /HPF (NEGATIVE) 10/22/20 11:53 Ur Culture Indicated? No/not indicated 10/22/20 11:53 SARS CoV-2 RNA Rapid ISIDORO Negative (NEGATIVE) 10/22/20 09:45
[2020-10-27] MEDS: DUONEB 0.5 MG/3 MG (3 mL) NEB SCH ×4 (00:46→13:14)
[2020-10-27] MEDS: SOLU-Medrol 40 MG VIAL IVP SCH ×2 (02:05→08:45)
[2020-10-27 07:11] LABS: BASOPHILS % (AUTO) 0.1 % (0.2-1.0); EOSINOPHILS % (AUTO) 0.1 % (0.9-2.9); HEMATOCRIT 45.7 % (42.0-54.0); HEMOGLOBIN 14.7 g/dL (13.5-18.0); LYMPHOCYTES # (AUTO) 0.3 X10^3/uL (1.3-2.9); LYMPHOCYTES % (AUTO) 3.3 % (21.0-51.0); MEAN CORPUSCULAR HGB CONC 32.2 g/dL (33.0-35.0); MEAN CORPUSCULAR VOLUME 87.2 fL (80.0-100.0); MEAN PLATELET VOLUME 8.2 fL (7.4-11.0); MONOCYTES # (AUTO) 0.3 x10^3/uL (0.3-0.8); MONOCYTES % (AUTO) 2.9 % (0.0-13.0); NEUTROPHILS # (AUTO) 8.1 x10^3/uL (2.2-4.8); NEUTROPHILS % (AUTO) 93.6 % (42.0-75.0); PLATELET COUNT 168 X10^3/uL (150.0-450.0); RED BLOOD COUNT 5.24 X10^6/uL (4.7-6.0); RED CELL DISTRIBUTION WIDTH 15.3 % (11.6-16.5); WHITE BLOOD COUNT 8.7 X10^3/uL (3.6-10.0)
[2020-10-27 07:26] LABS: ALANINE AMINOTRANSFERASE 113 Units/L (12-78); ALBUMIN 2.6 g/dL (3.4-5.0); ALKALINE PHOSPHATASE 50 Units/L (46-116); ASPARTATE AMINO TRANSFERASE 60 Units/L (15-37); BLOOD UREA NITROGEN 20 mg/dL (7-18); CALCIUM 9.3 mg/dL (8.5-10.1); CARBON DIOXIDE 31.2 mmol/L (21-32); CHLORIDE 106 mmol/L (98-107); COR CA(FOR HYPOALB) 10.4 mg/dL (8.5-10.1); COR NA(FOR HYPERGLY) 143 mmol/L (136-145); CREATININE 0.81 mg/dL (0.70-1.30); SODIUM 143 mmol/L (136-145); TOTAL PROTEIN 6.2 g/dL (6.4-8.2); eGFR NON BLACK RACES > 60 (>60)
[2020-10-27 07:52] LABS: BAND NEUTROPHILS % 4 % (0-10); PLATELET MORPHOLOGY COMMENT NORMAL (NORMAL)
[2020-10-27] MEDS: VSL#3 PO SCH (08:45)
[2020-10-27] MEDS: LEVAQUIN PREMIX IV 250 MG 250 MG/50 ML BAG IV SCH (08:45)
[2020-10-27] MEDS: PROTONIX INJ 40 MG VIAL IVP SCH (08:45)
[2020-10-27] MEDS: NEURONTIN CAP 100 MG PO SCH (08:45)
[2020-10-27] MEDS: FLOMAX PO SCH (08:45)
[2020-10-27] MEDS: ELIQUIS PO SCH (08:45)
[2020-10-27] MEDS: PULMICORT NEB TX 0.5 MG NEB SCH (09:02)
[2020-10-27] MEDS ORDERED: ZITHROMAX INJ 500 MG VIAL 500 MG in D5W 250 ML IV 250 ML IV SCH (09:18)
[2020-10-27] MEDS ORDERED: NS 250 ML IV 250 ML IV ONE (10:03)
[2020-10-27] MEDS: ZOSYN VIAL 3.375 GRAMS 3.375 G in NS 100 ML IV + SPIKE MINIBAG* 100 ML IV SCH ×2 (12:37→15:37)
[2020-10-27 16:06] VITALS: BP 154/67
[2020-10-27] MEDS ORDERED: COLACE CAP 100 MG PO SCH (21:00)
== END 2020-10-27 17:55 | disposition home or self-care (01) | DRG 190 ==
LOC: ER 09:14 → MED/SURG 16:47
PROVIDERS: ADMIT Internal Medicine; ATTEND Internal Medicine
DX: Z20.822 Contact with and (suspected) exposure to COVID-19; J44.1 Chronic obstructive pulmonary disease with (acute) exacerbation; R79.1 Abnormal coagulation profile; J96.22 Acute and chronic respiratory failure with hypercapnia; R26.89 Other abnormalities of gait and mobility; Z99.81 Dependence on supplemental oxygen; R41.82 Altered mental status, unspecified; Z86.718 Personal history of other venous thrombosis and embolism

== ENCOUNTER 2021-02-10 17:13 | Inpatient (IN) ==
[2021-02-10] MEDS ORDERED: NORCO 7.5/325 MG TAB PO PRN (17:39)
--- NOTE | 2021-02-10 17:45 | DR.H&P ---
H&P - History & Physical for Day of: H&P Date: 02/10/21 - Chief Complaint Chief Complaint: LEFT SHOULDER PAIN, REDNESS AND SWELLING - History of Present Illness History of Present Illness: PT IS 71 WM DIRECT ADMIT WITH LEFT UPPER ARM , PAIN REDNESS AND SWELLING. PT WAS SENT FROM DR RIVERA [facility] OFFICE FOR PCP EVALUATION DUE TO CRP ~150. PT HAD CORTISONE SHOT FOR OA APPROX 10 DAYS AGO WITH CONTINUED SWELLING TO UPPER ARM. PT HAS PMH OF COPD, COLON CA, OA AND DVT. PT ADMITTED FOR TREATMENT OF ACUTE ILLNESS. PT DENIES ANY CHEST PAIN SOB OR FEVER. - Past Medical History Past Medical History: COPD, CHF Additional Medical History: COLON CANCER, DVT - Past Surgical History Surgical History: Bowel Resection, Cholecystectomy - Family History Family Medical History: Cancer, Heart Failure, Hypertension - Social History Type of Tobacco Use: Cigarettes Prescription drug monitoring program results: PDMP reviewed and no concerns identified - Medications Home Medications: No Known Drug Allergies Allergy (Verified 09/04/20 12:49) - Review of Systems Constitutional: Chills. denies: Fever Eyes: No Symptoms Reported ENT: No Symptoms Reported Respiratory: No Symptoms Reported, SOB with Excertion Cardiovascular: denies: Edema Gastrointestinal: No Symptoms Reported Genitourinary: No Symptoms Reported Musculoskeletal: Shoulder Pain, Arm Pain Skin: Other (REDNESS TO LEFT UPPER ARM) Neurological: No Symptoms Reported - Physical Exam Vital Signs: Blood Pressure [Left Arm] 154/67 Oriented: Normal Eyes: Normal Ear: Normal Nose: Normal Throat: Normal Respiratory: RLL Diminished, LLL Diminished Cardiovascular: Normal : Normal Auscultation: Bowel Sounds: Normal Palpation: Normal Tenderness: Normal Skin: Red, Tender, Hot Musculoskeletal: Left, Shoulder, Arm, Swelling, Tender Psychiatric: Normal Mood Description: Calm Speech Pattern: Clear, Appropriate - Assessment/Plan (1) Left arm cellulitis Status: Acute Plan: ADMIT IV VANCOMYCIN. CBC CMP URIC ACID CRP SED RATE. BC ON ADMISSION, OBTAIN PREVIOUS MRI AND US. PAIN CONTROL, VERIFY AND RESUME HOME MEDICATION. RESP CONSULTATION (2) COPD (chronic obstructive pulmonary disease) Status: Acute - Allergies Allergies/Adverse Reactions: Allergies Allergy/AdvReac Type Severity Reaction Status Date / Time No Known Drug Allergies Allergy Verified 09/04/20 12:49
[2021-02-10] MEDS ORDERED: PHARMACY CONSULT - VANCOMYCIN XX SCH (18:00)
--- NOTE | 2021-02-10 18:22 | RAD ---
Left shoulder-three viewsIndication: Pain after fallCOMPARISONMR left shoulder from January 15, 2021.FINDINGSOsteonecrosis of the humeral head suggested. 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 There is no cortical lucency or malalignment.IMPRESSIONNo acute fracture. With DJD as above.Electronically signed by: ABEL DENT (Feb 10, 2021 18:19:41)
[2021-02-10 18:57] LABS: ALANINE AMINOTRANSFERASE 34 Units/L (12-78); ALKALINE PHOSPHATASE 70 Units/L (46-116); ASPARTATE AMINO TRANSFERASE 20 Units/L (15-37); BLOOD UREA NITROGEN 14 mg/dL (7-18); CHLORIDE 104 mmol/L (98-107); COR CA(FOR HYPOALB) 9.8 mg/dL (8.5-10.1); CREATININE 0.94 mg/dL (0.70-1.30); SODIUM 142 mmol/L (136-145); TOTAL PROTEIN 7.1 g/dL (6.4-8.2); URIC ACID 6.1 mg/dL (3.5-7.2); eGFR NON BLACK RACES > 60 (>60)
[2021-02-10 19:09] LABS: BASOPHILS # (AUTO) 0.1 X10^3/uL (0.0-0.1); BASOPHILS % (AUTO) 0.9 % (0.2-1.0); EOSINOPHILS # (AUTO) 0.1 x10^3/uL (0.0-0.2); EOSINOPHILS % (AUTO) 2.4 % (0.9-2.9); HEMATOCRIT 43.6 % (42.0-54.0); HEMOGLOBIN 14.6 g/dL (13.5-18.0); LYMPHOCYTES # (AUTO) 1.1 X10^3/uL (1.3-2.9); LYMPHOCYTES % (AUTO) 19.3 % (21.0-51.0); MEAN CORPUSCULAR HEMOGLOBIN 28.3 pg (27.0-34.0); MEAN CORPUSCULAR HGB CONC 33.5 g/dL (33.0-35.0); MEAN CORPUSCULAR VOLUME 84.4 fL (80.0-100.0); MEAN PLATELET VOLUME 7.7 fL (7.4-11.0); MONOCYTES # (AUTO) 0.7 x10^3/uL (0.3-0.8); MONOCYTES % (AUTO) 11.9 % (0.0-13.0); NEUTROPHILS # (AUTO) 3.9 x10^3/uL (2.2-4.8); NEUTROPHILS % (AUTO) 65.5 % (42.0-75.0); PLATELET COUNT 200 X10^3/uL (150.0-450.0); RED BLOOD COUNT 5.17 X10^6/uL (4.7-6.0)
[2021-02-10 19:13] LABS: ERYTHROCYTE SEDIMENTATION RATE 70 MM/HOUR (0-15)
[2021-02-10 19:19] LABS: RHEUMATOID FACTOR NEGATIVE (NEGATIVE)
[2021-02-10] MEDS: ELIQUIS PO SCH (20:29)
[2021-02-10] MEDS: DUONEB 0.5 MG/3 MG (3 mL) NEB SCH (21:09)
[2021-02-10 21:50] VITALS: BMI 35.6
[2021-02-10] MEDS ORDERED: NS 100 ML IV 100 ML IV ONE (22:28)
[2021-02-10] MEDS ORDERED: VANCOMYCIN IV *PREMIX 2 G/400 ML BAG 2 G/400 ML PIGGYBACK IV ONE (22:30)
[2021-02-11] MEDS: DUONEB 0.5 MG/3 MG (3 mL) NEB SCH ×6 (00:23→21:11)
[2021-02-11 04:47] LABS: BILIRUBIN,URINE NEGATIVE (NEGATIVE); BLOOD/HEMOGLOBIN,URINE NEGATIVE (NEGATIVE); GLUCOSE, URINE NEGATIVE (NEGATIVE); KETONES,URINE NEGATIVE (NEGATIVE); LEUKOCYTE ESTERASE ,URINE 1+ (NEGATIVE); NITRITES,URINE NEGATIVE (NEGATIVE); PROTEIN,URINE 1+ (NEGATIVE); UROBILINOGEN,URINE NORMAL (NORMAL)
[2021-02-11 04:50] LABS: APPEARANCE,URINE CLEAR (CLEAR); COLOR,URINE YELLOW (YELLOW)
[2021-02-11 04:51] LABS: BACTERIA,URINE NEGATIVE /HPF (NEGATIVE); RBC,URINE NONE SEEN /HPF (0-3); SQUAMOUS EPITHELIAL CELL,UR RARE /HPF (NEGATIVE)
[2021-02-11 06:22] LABS: BASOPHILS % (AUTO) 0.6 % (0.2-1.0); EOSINOPHILS # (AUTO) 0.1 x10^3/uL (0.0-0.2); EOSINOPHILS % (AUTO) 1.8 % (0.9-2.9); HEMATOCRIT 39.4 % (42.0-54.0); LYMPHOCYTES # (AUTO) 0.9 X10^3/uL (1.3-2.9); MEAN CORPUSCULAR HEMOGLOBIN 27.8 pg (27.0-34.0); MEAN CORPUSCULAR HGB CONC 32.9 g/dL (33.0-35.0); MEAN CORPUSCULAR VOLUME 84.3 fL (80.0-100.0); MEAN PLATELET VOLUME 7.9 fL (7.4-11.0); MONOCYTES # (AUTO) 0.6 x10^3/uL (0.3-0.8); MONOCYTES % (AUTO) 10.2 % (0.0-13.0); NEUTROPHILS # (AUTO) 4.3 x10^3/uL (2.2-4.8); NEUTROPHILS % (AUTO) 72.4 % (42.0-75.0); PLATELET COUNT 187 X10^3/uL (150.0-450.0); RED BLOOD COUNT 4.67 X10^6/uL (4.7-6.0); RED CELL DISTRIBUTION WIDTH 15.6 % (11.6-16.5); WHITE BLOOD COUNT 5.9 X10^3/uL (3.6-10.0)
[2021-02-11 06:31] LABS: ALANINE AMINOTRANSFERASE 27 Units/L (12-78); ALBUMIN 2.6 g/dL (3.4-5.0); ALKALINE PHOSPHATASE 57 Units/L (46-116); ASPARTATE AMINO TRANSFERASE 15 Units/L (15-37); BLOOD UREA NITROGEN 11 mg/dL (7-18); CALCIUM 8.7 mg/dL (8.5-10.1); CARBON DIOXIDE 30.5 mmol/L (21-32); CHLORIDE 105 mmol/L (98-107); COR CA(FOR HYPOALB) 9.8 mg/dL (8.5-10.1); CREATININE 0.84 mg/dL (0.70-1.30); SODIUM 142 mmol/L (136-145); TOTAL PROTEIN 6.1 g/dL (6.4-8.2); eGFR NON BLACK RACES > 60 (>60)
[2021-02-11] MEDS ORDERED: VANCOMYCIN HCL VIAL 1.25 G 1.25 G in D5W 250 ML IV 250 ML IV SCH (09:00)
[2021-02-11] MEDS: SOLU-Medrol 40 MG VIAL IVP SCH ×3 (09:06→21:08)
[2021-02-11] MEDS: ELIQUIS PO SCH ×2 (09:07→20:16)
[2021-02-11] MEDS: VANCOMYCIN IV *PREMIX 1.25 G/250 ML BAG 1.25 G/250 ML PIGGYBACK IV SCH ×2 (09:07→20:16)
--- NOTE | 2021-02-11 10:24 | RAD ---
Left elbow two viewsIndication: Left elbow pain. Redness and swellingFINDINGSThere is probable joint effusion with visible posterior fat pad. 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 Large osteochondral body seen in the posterior joint. Scattered osseous debris suggested within the joint radially on the frontal projection. Soft tissue swelling is noted.IMPRESSIONSoft tissue swelling about the elbow with effusion and, DJD and intra-articular body. No acute fracture seen. Findings are nonspecific, but inflammatory arthropathy or even infection cannot be excluded. Correlate clinicallyElectronically signed by: ABEL DENT (Feb 11, 2021 10:22:44)
[2021-02-11] MEDS: PERCOCET TAB 5/325 MG PO PRN (20:47)
[2021-02-11] MEDS ORDERED: COLACE CAP 100 MG PO SCH (21:00)
[2021-02-11] MEDS ORDERED: FLOMAX PO SCH (21:00)
[2021-02-12] MEDS: DUONEB 0.5 MG/3 MG (3 mL) NEB SCH ×3 (00:10→08:09)
[2021-02-12 08:49] LABS: BASOPHILS % (AUTO) 0.2 % (0.2-1.0); HEMATOCRIT 41.9 % (42.0-54.0); HEMOGLOBIN 13.7 g/dL (13.5-18.0); LYMPHOCYTES # (AUTO) 0.7 X10^3/uL (1.3-2.9); LYMPHOCYTES % (AUTO) 4.9 % (21.0-51.0); MEAN CORPUSCULAR HEMOGLOBIN 27.7 pg (27.0-34.0); MEAN CORPUSCULAR HGB CONC 32.7 g/dL (33.0-35.0); MEAN CORPUSCULAR VOLUME 84.6 fL (80.0-100.0); MEAN PLATELET VOLUME 7.6 fL (7.4-11.0); MONOCYTES # (AUTO) 0.6 x10^3/uL (0.3-0.8); MONOCYTES % (AUTO) 4.3 % (0.0-13.0); NEUTROPHILS # (AUTO) 12.7 x10^3/uL (2.2-4.8); NEUTROPHILS % (AUTO) 90.6 % (42.0-75.0); PLATELET COUNT 222 X10^3/uL (150.0-450.0); RED BLOOD COUNT 4.95 X10^6/uL (4.7-6.0); RED CELL DISTRIBUTION WIDTH 16.1 % (11.6-16.5)
[2021-02-12] MEDS: VANCOMYCIN IV *PREMIX 1.25 G/250 ML BAG 1.25 G/250 ML PIGGYBACK IV SCH (08:57)
[2021-02-12] MEDS: ELIQUIS PO SCH (08:57)
[2021-02-12 08:59] LABS: ALANINE AMINOTRANSFERASE 27 Units/L (12-78); ALKALINE PHOSPHATASE 64 Units/L (46-116); ASPARTATE AMINO TRANSFERASE 15 Units/L (15-37); BLOOD UREA NITROGEN 13 mg/dL (7-18); CALCIUM 9.2 mg/dL (8.5-10.1); CARBON DIOXIDE 26.6 mmol/L (21-32); CHLORIDE 107 mmol/L (98-107); COR NA(FOR HYPERGLY) 144 mmol/L (136-145); CREATININE 0.96 mg/dL (0.70-1.30); SODIUM 142 mmol/L (136-145); TOTAL PROTEIN 6.8 g/dL (6.4-8.2); eGFR NON BLACK RACES > 60 (>60)
[2021-02-12 09:26] LABS: BAND NEUTROPHILS % 3 % (0-10)
[2021-02-12 09:27] LABS: PLATELET MORPHOLOGY COMMENT NORMAL (NORMAL)
[2021-02-12] MEDS ORDERED: BACTRIM DS TAB PO ONE (11:10)
[2021-02-12] MEDS: PERCOCET TAB 5/325 MG PO PRN (12:48)
[2021-02-12 13:11] VITALS: BP 167/67
[2021-02-12] MEDS ORDERED: PHARMACY COMMENT IV NR (20:30)
== END 2021-02-12 13:15 | disposition home or self-care (01) | DRG 603 ==
LOC: MED/SURG 17:40
PROVIDERS: ADMIT Internal Medicine; ATTEND Internal Medicine
DX: Z85.038 Personal history of other malignant neoplasm of large intestine; R79.82 Elevated C-reactive protein (CRP); M19.012 Primary osteoarthritis, left shoulder; Z86.718 Personal history of other venous thrombosis and embolism; J44.9 Chronic obstructive pulmonary disease, unspecified; L03.114 Cellulitis of left upper limb; R60.0 Localized edema; Z79.01 Long term (current) use of anticoagulants; R70.0 Elevated erythrocyte sedimentation rate; Z20.822 Contact with and (suspected) exposure to COVID-19; M19.022 Primary osteoarthritis, left elbow; M25.522 Pain in left elbow

== ENCOUNTER 2022-12-13 12:07 | Observation (INO) ==
--- NOTE | 2022-12-13 12:22 | DR.GENAD ---
HPI Time Seen Time Seen by Provider: 12/13/22 12:21 PCP Primary Care Physician: BROCK DURHAM HPI Comment HPI Comment: PATIENT IS 72YR OLD MALE IN ER WITH NO STOOL IN COLOSTOMY BAG TIMES ONE WEEK. DENIES PAIN. OUTPATIENT XRAY TAKING INDICATED CONCERN FOR PARTIAL BOWEL OBSTRUCTION. HERE FOR CT SCAN EVALUATION. DENIES FEVER, VOMITING OR DYSURIA. Complaint/Symptoms Chief Complaint Doctors Comments: NO STOOL IN COLOSTOMY BAG TIMES ONE WEEK. Chief Complaint:: PT. STATES HE HAS NOT HAD A BOWEL MOVEMENT IN ONE WEEK. PT. HAS A COLOSTOMY. PT. STATES HE HAS BEEN PASSING GAS BUT HAS NOT HAD ANY STOOL. PT. DENIES ABDOMINAL PAIN. PT. HAD AN OUT PATIENT X-RAY ON TUESDAY. PT. WAS IN FORMED TO COME TO THE ER FOR FURTHER EVALUATION WITH CT SCAN OF ABDOMEN. COVID-19 Coronavirus risk:travel/contact w/high risk person: No Has patient experienced Coronavirus symptoms: No Nurses notes reviewed Nurses Notes Review: Yes Source History Provided: Patient Mode of Arrival Mode of Arrival: Ambulatory Timing Onset of Chief Complaint: 12/08/22 PMH PMH Past Medical History: Yes Past Medical History: CHF and COPD Past Medical History Comment: COLORECTAL CANCER Past Surgical History: Yes Surgical History: Bowel Resection, Cholecystectomy, Tonsillectomy and Other Past Surgical History Comment: COLOSTOMY Family History History of Family Medical Conditions: Yes Family Medical History: Cancer, Heart Failure and Hypertension Social History Does patient currently use any type of tobacco product: Yes Have you used tobacco products in the last 12 months: Yes Type of Tobacco Use: Cigarettes Does any household member use tobacco: Yes Alcohol Use: None Do you use any recreational Drugs:: No Lives With: Family Lives Where: Home Travel Risk Coronavirus risk:travel/contact w/high risk person: No Has patient experienced Coronavirus symptoms: No Infectious screening In the last 2 months have you had wt loss of >10#?: NO Have you had fever, night sweats or hemotysis?: No Have you traveled outside the country in the last 6 months?: No Isolation: Standard ROS Review of Systems Constitutional: Weakness and Fatigue; negative Fever Eyes: No Symptoms Reported ENTM: No Symptoms Reported; negative Nose Discharge or Nose Congestion Cardiovascular: No Symptoms Reported; negative Chest Pain Gastrointestinal/Abdominal: Constipation; negative Abdominal Pain, Diarrhea or Vomiting Genitourinary: No Symptoms Reported; negative Dysuria Neurological: Weakness; negative Headache or Dizziness Musculoskeletal: No Symptoms Reported; negative Muscle Pain Integumentary: No Symptoms Reported; negative Rash or Juandice Hematologic/Lymphatic: No Symptoms Reported Endocrine: No Symptoms Reported; negative Increased Thirst or Increased Urine Psychiatric: No Symptoms Reported All Other Systems: Reviewed and Negative PE Vital Signs Vitals: Temperature 98.0 F Pulse Rate 74 Respiratory Rate 17 Blood Pressure [Left Arm] 167/67 Blood Pressure 132/63 O2 Sat by Pulse Oximetry 98 General Limitations: No Limitations General Appearance: Alert and In No Apparent Distress Head Head Exam: Normal Inspection Eyes Eye exam: Normal Appearance ENT ENT Exam: Normal Exam Neck Neck Exam: Normal Inspection and Trachea Midline; negative Tenderness Chest Chest Inspection: Normal Inspection and Symmetric Chest Wall Rise; negative Tenderness Respiratory Respiratory Exam: Respiratory Distress; negative Accessory Muscle Use or Chest Wall Tenderness Respiratory Exam: Bilateral: Rhonchi Cardiovascular Cardiovascular Exam: Regular Rate, Normal Rhythm and Normal Heart Sounds; negative Systolic Murmur or Diastolic Murmur Abdominal Exam Abdominal Exam: Normal Bowel Sounds, Soft and Tenderness Abdominal Tenderness: Diffuse and Mild Extremities Extremities Exam: Normal Inspection and Normal Capillary Refill Back Back Exam: Normal Inspection; negative (R) CVA Tenderness or (L) CVA Tenderness Neurologic Neurological Exam: Alert and Oriented X3 Psychiatric Psychiatric Exam: Normal Affect and Normal Mood Skin Skin Exam: Intact MDM Differential Diagnosis Differential Diagnosis: BOWEL OBST, IBS, DIVERTICULITIS, COLOSTOMY NOT WORKING, DEHYDRATION, UTI COURSE Treatment Treatment: SEE ORDERS DONE WHILE PATIENT WAS IN ER. Consultation Consultation Comments: DISCUSSED PATIENT WITH DR. JAUREGUI. HE WILL ADMIT PATIENT. Education/Counseling Education/Counseling: Patient Educated On: Diagnosis ROR Labs Reviewed Laboratory Results Reviewed?: Yes Result Diagrams: 12/15/22 04:15 12/15/22 04:15 Laboratory: WBC 8.5 X10^3/uL (3.6-10.0) 12/13/22 13:20 RBC 4.74 X10^6/uL (4.7-6.0) 12/13/22 13:20 Hgb 12.7 g/dL (13.5-18.0) L 12/13/22 13:20 Hct 38.6 % (42.0-54.0) L 12/13/22 13:20 MCV 81.4 fL (80.0-100.0) 12/13/22 13:20 MCH 26.7 pg (27.0-34.0) L 12/13/22 13:20 MCHC 32.8 g/dL (33.0-35.0) L 12/13/22 13:20 RDW 16.3 % (11.6-16.5) 12/13/22 13:20 Plt Count 348 X10^3/uL (150.0-450.0) 12/13/22 13:20 MPV 7.0 fL (7.4-11.0) L 12/13/22 13:20 Neut % (Auto) 51.4 % (42.0-75.0) 12/13/22 13:20 Lymph % (Auto) 37.8 % (21.0-51.0) 12/13/22 13:20 [place] % (Auto) 7.8 % (0.0-13.0) 12/13/22 13:20 Eos % (Auto) 2.2 % (0.9-2.9) 12/13/22 13:20 Baso % (Auto) 0.8 % (0.2-1.0) 12/13/22 13:20 Neut # (Auto) 4.4 x10^3/uL (2.2-4.8) 12/13/22 13:20 Lymph # (Auto) 3.2 X10^3/uL (1.3-2.9) H 12/13/22 13:20 [place] # (Auto) 0.7 x10^3/uL (0.3-0.8) 12/13/22 13:20 Eos # (Auto) 0.2 x10^3/uL (0.0-0.2) 12/13/22 13:20 Baso # (Auto) 0.1 X10^3/uL (0.0-0.1) 12/13/22 13:20 Absolute Nucleated RBC 0.1 /100WBC 12/13/22 13:20 Sodium 139 mmol/L (136-145) 12/13/22 13:20 Corrected Sodium TNP 12/13/22 13:20 Potassium 3.9 mmol/L (3.5-5.1) 12/13/22 13:20 Chloride 102 mmol/L (98-107) 12/13/22 13:20 Carbon Dioxide 31.9 mmol/L (21-32) 12/13/22 13:20 BUN 7 mg/dL (7-18) 12/13/22 13:20 Creatinine 0.83 mg/dL (0.70-1.30) 12/13/22 13:20 Est GFR (MDRD) Af Amer > 60 (>60) 12/13/22 13:20 Est GFR (MDRD) Non-Af > 60 (>60) 12/13/22 13:20 Glucose 96 mg/dL (65-99) 12/13/22 13:20 Calcium 9.2 mg/dL (8.5-10.1) 12/13/22 13:20 Corrected Calcium 10.0 mg/dL (8.5-10.1) 12/13/22 13:20 Total Bilirubin 0.50 mg/dL (0.2-1.0) 12/13/22 13:20 AST 16 Units/L (15-37) 12/13/22 13:20 ALT 14 Units/L (12-78) 12/13/22 13:20 Alkaline Phosphatase 64 Units/L (46-116) 12/13/22 13:20 Total Protein 7.7 g/dL (6.4-8.2) 12/13/22 13:20 Albumin 3.0 g/dL (3.4-5.0) L 12/13/22 13:20 Globulin 4.7 g/dL (2.5-4.5) H 12/13/22 13:20 Albumin/Globulin Ratio 0.6 Ratio (1.1-2.1) L 12/13/22 13:20 Amylase 25 Units/L (25-115) 12/13/22 13:20 Lipase 48 Units/L (73-393) L 12/13/22 13:20 Specimen Type Clean catch urine 12/13/22 16:29 Urine Color Yellow (YELLOW) 12/13/22 16:29 Urine Appearance Slightly hazy (CLEAR) 12/13/22 16:29 Urine pH 7.0 (5.0 - 8.0) 12/13/22 16:29 Ur Specific [place] 1.005 (1.000-1.030) 12/13/22 16:29 Urine Protein 1+ (NEGATIVE) 12/13/22 16:29 Urine Glucose (UA) Negative (NEGATIVE) 12/13/22 16:29 Urine Ketones Negative (NEGATIVE) 12/13/22 16:29 Urine Blood 1+ (NEGATIVE) 12/13/22 16:29 Urine Nitrite Negative (NEGATIVE) 12/13/22 16:29 Urine Bilirubin Negative (NEGATIVE) 12/13/22 16:29 Urine Urobilinogen 1+ (NORMAL) 12/13/22 16:29 Ur Leukocyte Esterase 1+ (NEGATIVE) 12/13/22 16:29 Urine RBC 3-5 /HPF (0-3) A 12/13/22 16:29 Urine WBC 0-2 /HPF (0-5) 12/13/22 16:29 Ur Squamous Epith Cells Rare /HPF (NEGATIVE) 12/13/22 16:29 Urine Bacteria Trace /HPF (NEGATIVE) 12/13/22 16:29 Ur Culture Indicated? No/not indicated 12/13/22 16:29 XRAY XRAY Interpreted by: Radiologist (REPORT NOTED.) and Self Opioid Opioid Risk Tool Age (Philip box if 16-45): No History of Preadolescent Sexual Abuse: No Total: 0 Total Score Risk Category: Low Risk Copyright: Jose Miguel FAN predicting aberrant behaviors Discharge Plan Diagnosis Discharge Problem: Partial bowel obstruction Discharge Plan Patient Disposition: 09 ADMITTED INPATIENT Condition: Stable
[2022-12-13 13:28] LABS: BASOPHILS # (AUTO) 0.1 X10^3/uL (0.0-0.1); BASOPHILS % (AUTO) 0.8 % (0.2-1.0); EOSINOPHILS # (AUTO) 0.2 x10^3/uL (0.0-0.2); EOSINOPHILS % (AUTO) 2.2 % (0.9-2.9); HEMATOCRIT 38.6 % (42.0-54.0); HEMOGLOBIN 12.7 g/dL (13.5-18.0); LYMPHOCYTES # (AUTO) 3.2 X10^3/uL (1.3-2.9); LYMPHOCYTES % (AUTO) 37.8 % (21.0-51.0); MEAN CORPUSCULAR HEMOGLOBIN 26.7 pg (27.0-34.0); MEAN CORPUSCULAR HGB CONC 32.8 g/dL (33.0-35.0); MEAN CORPUSCULAR VOLUME 81.4 fL (80.0-100.0); MONOCYTES # (AUTO) 0.7 x10^3/uL (0.3-0.8); MONOCYTES % (AUTO) 7.8 % (0.0-13.0); NEUTROPHILS # (AUTO) 4.4 x10^3/uL (2.2-4.8); NEUTROPHILS % (AUTO) 51.4 % (42.0-75.0); RED BLOOD COUNT 4.74 X10^6/uL (4.7-6.0); RED CELL DISTRIBUTION WIDTH 16.3 % (11.6-16.5); WHITE BLOOD COUNT 8.5 X10^3/uL (3.6-10.0)
[2022-12-13 13:52] LABS: ALANINE AMINOTRANSFERASE 14 Units/L (12-78); ALKALINE PHOSPHATASE 64 Units/L (46-116); AMYLASE 25 Units/L (25-115); ASPARTATE AMINO TRANSFERASE 16 Units/L (15-37); BLOOD UREA NITROGEN 7 mg/dL (7-18); CALCIUM 9.2 mg/dL (8.5-10.1); CARBON DIOXIDE 31.9 mmol/L (21-32); CHLORIDE 102 mmol/L (98-107); CREATININE 0.83 mg/dL (0.70-1.30); LIPASE 48 Units/L (73-393); SODIUM 139 mmol/L (136-145); TOTAL PROTEIN 7.7 g/dL (6.4-8.2); eGFR NON BLACK RACES > 60 (>60)
[2022-12-13] MEDS ORDERED: NS 100 ML IV 100 ML ONE (15:56)
[2022-12-13 16:38] LABS: BILIRUBIN,URINE NEGATIVE (NEGATIVE); BLOOD/HEMOGLOBIN,URINE 1+ (NEGATIVE); GLUCOSE, URINE NEGATIVE (NEGATIVE); KETONES,URINE NEGATIVE (NEGATIVE); LEUKOCYTE ESTERASE ,URINE 1+ (NEGATIVE); NITRITES,URINE NEGATIVE (NEGATIVE); PROTEIN,URINE 1+ (NEGATIVE); UROBILINOGEN,URINE 1+ (NORMAL)
[2022-12-13 16:53] LABS: APPEARANCE,URINE SLIGHTLY HAZY (CLEAR); COLOR,URINE YELLOW (YELLOW)
[2022-12-13 16:57] LABS: BACTERIA,URINE TRACE /HPF (NEGATIVE); SQUAMOUS EPITHELIAL CELL,UR RARE /HPF (NEGATIVE)
--- NOTE | 2022-12-13 17:09 | CT ---
HISTORYABD PAIN, COLOSTOMYSTUDYABDOMEN/PELVIS WITH CONCOMPARISONMarch 2020TECHNIQUEAxial CT images of the abdomen and pelvis were obtained after the administration of IV contrast, 100 mL Omnipaque 350, and reformatted into coronal and sagittal planes for further evaluation.Radiation dose: 663.79 mGy-cm total DLPFINDINGSLung bases are clear.Stomach appears normal.Solid visceral organs of the upper abdomen are unremarkable.Status post cholecystectomy.Small bilateral renal cysts.Otherwise, unremarkable appearance of the kidneys and ureters.Mild uniform urinary bladder wall thickening.Imaged reproductive structures are unremarkable.Anastomotic suture in the rectum. Mild edema in the pre sacral soft tissues. Tiny focus of gas in the right perirectal space.Colostomy in the right anterior abdominal wall.Otherwise, unremarkable appearance of the remaining bowel.No evidence of acute appendicitis.No pneumoperitoneum.No significant fluid collection.No adenopathy.No acute osseous abnormality.IMPRESSION1. Anastomotic suture in the rectum. Mild edema in the pre sacral soft tissues. Tiny focus of gas in the right perirectal space. Findings are nonspecific but could represent a sinus track, dehiscence of the rectal anastomosis or recent postoperative changes; correlate clinically.2. Mild uniform urinary bladder wall thickening could represent infectious/inflammatory cystitis or sequela of a chronic outlet obstruction.Electronically signed by: Doe Machado (Dec 13, 2022 17:08:22)
[2022-12-13] MEDS ORDERED: DUONEB 0.5 MG/3 MG (3 mL) NEB PRN ×2 (18:28→19:35)
[2022-12-13] MEDS: D5 1/2 NS 1,000 ML 1,000 ML IV SCH (20:15)
[2022-12-14 04:51] LABS: BASOPHILS # (AUTO) 0.1 X10^3/uL (0.0-0.1); BASOPHILS % (AUTO) 0.9 % (0.2-1.0); EOSINOPHILS # (AUTO) 0.2 x10^3/uL (0.0-0.2); EOSINOPHILS % (AUTO) 2.8 % (0.9-2.9); HEMATOCRIT 34.9 % (42.0-54.0); HEMOGLOBIN 11.5 g/dL (13.5-18.0); LYMPHOCYTES # (AUTO) 2.2 X10^3/uL (1.3-2.9); LYMPHOCYTES % (AUTO) 29.6 % (21.0-51.0); MEAN CORPUSCULAR HEMOGLOBIN 26.4 pg (27.0-34.0); MEAN CORPUSCULAR HGB CONC 32.9 g/dL (33.0-35.0); MEAN CORPUSCULAR VOLUME 80.3 fL (80.0-100.0); MEAN PLATELET VOLUME 7.6 fL (7.4-11.0); MONOCYTES # (AUTO) 0.6 x10^3/uL (0.3-0.8); NEUTROPHILS # (AUTO) 4.4 x10^3/uL (2.2-4.8); NEUTROPHILS % (AUTO) 58.7 % (42.0-75.0); RED BLOOD COUNT 4.35 X10^6/uL (4.7-6.0); RED CELL DISTRIBUTION WIDTH 15.5 % (11.6-16.5); WHITE BLOOD COUNT 7.6 X10^3/uL (3.6-10.0)
[2022-12-14 05:06] LABS: ALANINE AMINOTRANSFERASE 12 Units/L (12-78); ALBUMIN 2.5 g/dL (3.4-5.0); ALKALINE PHOSPHATASE 57 Units/L (46-116); ASPARTATE AMINO TRANSFERASE 15 Units/L (15-37); BLOOD UREA NITROGEN 6 mg/dL (7-18); CALCIUM 8.6 mg/dL (8.5-10.1); CARBON DIOXIDE 30.7 mmol/L (21-32); CHLORIDE 103 mmol/L (98-107); COR CA(FOR HYPOALB) 9.8 mg/dL (8.5-10.1); CREATININE 0.69 mg/dL (0.70-1.30); SODIUM 140 mmol/L (136-145); TOTAL PROTEIN 6.6 g/dL (6.4-8.2); eGFR NON BLACK RACES > 60 (>60)
[2022-12-14] MEDS: D5 1/2 NS 1,000 ML 1,000 ML IV SCH ×4 (05:29→20:26)
--- NOTE | 2022-12-14 07:30 | RAD ---
HISTORYFollow-up bowel obstructionSTUDYKUBCOMPARISONCT abdomen pelvis with contrast 12/13/2022FINDINGSThere is an ostomy in the left upper quadrant. There is some dilated loops of small bowel in the right lower quadrant. Gas is present distally within the colon. Findings could be consistent with a partial small bowel obstruction. No abnormal masses or abnormal calcifications are identified. Regional skeleton is intact.IMPRESSIONMultiple moderately dilated small bowel loops in the right lower quadrant but with gas distally within the colon. Findings suspicious for a partial small bowel obstructionElectronically signed by: ANDREY NGUYEN (Dec 14, 2022 07:29:13)
--- NOTE | 2022-12-14 08:31 | DR.PROGNOT ---
HOSPITAL PROGRESS NOTE Progress Note for Day of: Progress Note Date: 12/14/22 Chief Complaint Chief Complaint: moderate abdominal pain , no nausea , no vomiting . KUB showed partial SBO . small amount of stool in colostomy bag . normal lab work . Past Medical Family Social History Past Med/Fam/Surg Hx: No changes since H&P Allergies: Allergies cortisone Adverse Reaction (Verified 12/13/22 21:19) Vital Signs Vital Signs: Temperature 98.6 F Pulse Rate [Left Brachial] 73 Pulse Rate 66 Respiratory Rate 27 Blood Pressure [Left Arm] 119/58 Blood Pressure 118/61 O2 Sat by Pulse Oximetry 96 Physical Exam GI:Auscultation: Normal, Bruit, Absent, Increased, Decreased, High Pitched and Other GI: Tenderness: Epigastric (and mid abdominal tenderness ) Speech Pattern: Clear and Appropriate Laboratory and Diagnostics Result Diagrams: 12/14/22 04:20 12/14/22 04:20 Labs: Laboratory WBC 7.6 X10^3/uL (3.6-10.0) 12/14/22 04:20 RBC 4.35 X10^6/uL (4.7-6.0) L 12/14/22 04:20 Hgb 11.5 g/dL (13.5-18.0) L 12/14/22 04:20 Hct 34.9 % (42.0-54.0) L 12/14/22 04:20 MCV 80.3 fL (80.0-100.0) 12/14/22 04:20 MCH 26.4 pg (27.0-34.0) L 12/14/22 04:20 MCHC 32.9 g/dL (33.0-35.0) L 12/14/22 04:20 RDW 15.5 % (11.6-16.5) 12/14/22 04:20 Plt Count 348 X10^3/uL (150.0-450.0) 12/14/22 04:20 MPV 7.6 fL (7.4-11.0) 12/14/22 04:20 Neut % (Auto) 58.7 % (42.0-75.0) 12/14/22 04:20 Lymph % (Auto) 29.6 % (21.0-51.0) 12/14/22 04:20 [place] % (Auto) 8.0 % (0.0-13.0) 12/14/22 04:20 Eos % (Auto) 2.8 % (0.9-2.9) 12/14/22 04:20 Baso % (Auto) 0.9 % (0.2-1.0) 12/14/22 04:20 Neut # (Auto) 4.4 x10^3/uL (2.2-4.8) 12/14/22 04:20 Lymph # (Auto) 2.2 X10^3/uL (1.3-2.9) 12/14/22 04:20 [place] # (Auto) 0.6 x10^3/uL (0.3-0.8) 12/14/22 04:20 Eos # (Auto) 0.2 x10^3/uL (0.0-0.2) 12/14/22 04:20 Baso # (Auto) 0.1 X10^3/uL (0.0-0.1) 12/14/22 04:20 Absolute Nucleated RBC 0.1 /100WBC 12/14/22 04:20 Sodium 140 mmol/L (136-145) 12/14/22 04:20 Corrected Sodium TNP 12/14/22 04:20 Potassium 3.8 mmol/L (3.5-5.1) 12/14/22 04:20 Chloride 103 mmol/L (98-107) 12/14/22 04:20 Carbon Dioxide 30.7 mmol/L (21-32) 12/14/22 04:20 BUN 6 mg/dL (7-18) L 12/14/22 04:20 Creatinine 0.69 mg/dL (0.70-1.30) L 12/14/22 04:20 Est GFR (MDRD) Af Amer > 60 (>60) 12/14/22 04:20 Est GFR (MDRD) Non-Af > 60 (>60) 12/14/22 04:20 Glucose 96 mg/dL (65-99) 12/14/22 04:20 Calcium 8.6 mg/dL (8.5-10.1) 12/14/22 04:20 Corrected Calcium 9.8 mg/dL (8.5-10.1) 12/14/22 04:20 Total Bilirubin 0.50 mg/dL (0.2-1.0) 12/14/22 04:20 AST 15 Units/L (15-37) 12/14/22 04:20 ALT 12 Units/L (12-78) 12/14/22 04:20 Alkaline Phosphatase 57 Units/L (46-116) 12/14/22 04:20 Total Protein 6.6 g/dL (6.4-8.2) 12/14/22 04:20 Albumin 2.5 g/dL (3.4-5.0) L 12/14/22 04:20 Globulin 4.1 g/dL (2.5-4.5) 12/14/22 04:20 Albumin/Globulin Ratio 0.6 Ratio (1.1-2.1) L 12/14/22 04:20 Amylase 25 Units/L (25-115) 12/13/22 13:20 Lipase 48 Units/L (73-393) L 12/13/22 13:20 Specimen Type Clean catch urine 12/13/22 16:29 Urine Color Yellow (YELLOW) 12/13/22 16:29 Urine Appearance Slightly hazy (CLEAR) 12/13/22 16:29 Urine pH 7.0 (5.0 - 8.0) 12/13/22 16:29 Ur Specific [place] 1.005 (1.000-1.030) 12/13/22 16:29 Urine Protein 1+ (NEGATIVE) 12/13/22 16: Urine Glucose (UA) Negative (NEGATIVE) 12/13/22 16: Urine Ketones Negative (NEGATIVE) 12/13/22 16: Urine Blood 1+ (NEGATIVE) 12/13/22 16: Urine Nitrite Negative (NEGATIVE) 12/13/22 16: Urine Bilirubin Negative (NEGATIVE) 12/13/22 16: Urine Urobilinogen 1+ (NORMAL) 12/13/22 16: Ur Leukocyte Esterase 1+ (NEGATIVE) 12/13/22 16: Urine RBC 3-5 /HPF (0-3) A 12/13/22 16:29 Urine WBC 0-2 /HPF (0-5) 12/13/22 16:29 Ur Squamous Epith Cells Rare /HPF (NEGATIVE) 12/13/22 16: Urine Bacteria Trace /HPF (NEGATIVE) 12/13/22 16:29 Ur Culture Indicated? No/not indicated 12/13/22 16:29 Assessment and Plan 1: partial SBO . to advance diet , repeat KUB . CEA level . Problem Patient Problems: Patient Problems (Updated 12/13/22 @ 18:02 by YASMEEN CAMACHO) Partial bowel obstruction (Acute) K56.006
[2022-12-14] MEDS: NEURONTIN CAP 300 MG PO SCH ×2 (09:21→20:27)
[2022-12-14] MEDS: ELIQUIS PO SCH ×2 (09:35→20:27)
[2022-12-14 12:33] VITALS: BMI 33.5
[2022-12-14] MEDS: FLOMAX PO SCH (20:26)
[2022-12-15] MEDS: D5 1/2 NS 1,000 ML 1,000 ML IV SCH ×4 (01:51→21:18)
[2022-12-15 05:16] LABS: BASOPHILS # (AUTO) 0.1 X10^3/uL (0.0-0.1); BASOPHILS % (AUTO) 1.3 % (0.2-1.0); EOSINOPHILS # (AUTO) 0.2 x10^3/uL (0.0-0.2); EOSINOPHILS % (AUTO) 2.7 % (0.9-2.9); HEMATOCRIT 34.6 % (42.0-54.0); HEMOGLOBIN 11.5 g/dL (13.5-18.0); LYMPHOCYTES # (AUTO) 2.6 X10^3/uL (1.3-2.9); LYMPHOCYTES % (AUTO) 32.1 % (21.0-51.0); MEAN CORPUSCULAR HEMOGLOBIN 26.8 pg (27.0-34.0); MEAN CORPUSCULAR HGB CONC 33.3 g/dL (33.0-35.0); MEAN CORPUSCULAR VOLUME 80.5 fL (80.0-100.0); MEAN PLATELET VOLUME 7.8 fL (7.4-11.0); MONOCYTES # (AUTO) 0.7 x10^3/uL (0.3-0.8); MONOCYTES % (AUTO) 8.2 % (0.0-13.0); NEUTROPHILS # (AUTO) 4.5 x10^3/uL (2.2-4.8); NEUTROPHILS % (AUTO) 55.7 % (42.0-75.0); RED CELL DISTRIBUTION WIDTH 15.6 % (11.6-16.5)
[2022-12-15 05:29] LABS: ALANINE AMINOTRANSFERASE 10 Units/L (12-78); ALBUMIN 2.3 g/dL (3.4-5.0); ALKALINE PHOSPHATASE 54 Units/L (46-116); ASPARTATE AMINO TRANSFERASE 14 Units/L (15-37); BLOOD UREA NITROGEN 5 mg/dL (7-18); CALCIUM 8.2 mg/dL (8.5-10.1); CARBON DIOXIDE 30.3 mmol/L (21-32); CHLORIDE 104 mmol/L (98-107); COR CA(FOR HYPOALB) 9.6 mg/dL (8.5-10.1); CREATININE 0.73 mg/dL (0.70-1.30); SODIUM 140 mmol/L (136-145); TOTAL PROTEIN 6.4 g/dL (6.4-8.2); eGFR NON BLACK RACES > 60 (>60)
--- NOTE | 2022-12-15 09:04 | DR.PROGNOT ---
HOSPITAL PROGRESS NOTE Progress Note for Day of: Progress Note Date: 12/15/22 Chief Complaint Chief Complaint: no abdominal pain , no nausea , no vomiting . KUB showed partial SBO . colostomy is functioning now . Past Medical Family Social History Past Med/Fam/Surg Hx: No changes since H&P Allergies: Allergies cortisone Adverse Reaction (Verified 12/13/22 21:19) Vital Signs Vital Signs: Temperature 98.5 F Pulse Rate [Left Brachial] 73 Pulse Rate 65 Respiratory Rate 0 Blood Pressure [Left Arm] 119/58 Blood Pressure 110/56 O2 Sat by Pulse Oximetry 96 Physical Exam GI:Auscultation: Normal (soft abdomen , non tender .. BS+) GI: Tenderness: Epigastric (and mid abdominal tenderness ) Speech Pattern: Clear and Appropriate Laboratory and Diagnostics Result Diagrams: 12/15/22 04:15 12/15/22 04:15 Labs: Laboratory WBC 8.0 X10^3/uL (3.6-10.0) 12/15/22 04:15 RBC 4.30 X10^6/uL (4.7-6.0) L 12/15/22 04:15 Hgb 11.5 g/dL (13.5-18.0) L 12/15/22 04:15 Hct 34.6 % (42.0-54.0) L 12/15/22 04:15 MCV 80.5 fL (80.0-100.0) 12/15/22 04:15 MCH 26.8 pg (27.0-34.0) L 12/15/22 04:15 MCHC 33.3 g/dL (33.0-35.0) 12/15/22 04:15 RDW 15.6 % (11.6-16.5) 12/15/22 04:15 Plt Count 345 X10^3/uL (150.0-450.0) 12/15/22 04:15 MPV 7.8 fL (7.4-11.0) 12/15/22 04:15 Neut % (Auto) 55.7 % (42.0-75.0) 12/15/22 04:15 Lymph % (Auto) 32.1 % (21.0-51.0) 12/15/22 04:15 [place] % (Auto) 8.2 % (0.0-13.0) 12/15/22 04:15 Eos % (Auto) 2.7 % (0.9-2.9) 12/15/22 04:15 Baso % (Auto) 1.3 % (0.2-1.0) H 12/15/22 04:15 Neut # (Auto) 4.5 x10^3/uL (2.2-4.8) 12/15/22 04:15 Lymph # (Auto) 2.6 X10^3/uL (1.3-2.9) 12/15/22 04:15 [place] # (Auto) 0.7 x10^3/uL (0.3-0.8) 12/15/22 04:15 Eos # (Auto) 0.2 x10^3/uL (0.0-0.2) 12/15/22 04:15 Baso # (Auto) 0.1 X10^3/uL (0.0-0.1) 12/15/22 04:15 Absolute Nucleated RBC 0.0 /100WBC 12/15/22 04:15 Sodium 140 mmol/L (136-145) 12/15/22 04:15 Corrected Sodium TNP 12/15/22 04:15 Potassium 3.6 mmol/L (3.5-5.1) 12/15/22 04:15 Chloride 104 mmol/L (98-107) 12/15/22 04:15 Carbon Dioxide 30.3 mmol/L (21-32) 12/15/22 04:15 BUN 5 mg/dL (7-18) L 12/15/22 04:15 Creatinine 0.73 mg/dL (0.70-1.30) 12/15/22 04:15 Est GFR (MDRD) Af Amer > 60 (>60) 12/15/22 04:15 Est GFR (MDRD) Non-Af > 60 (>60) 12/15/22 04:15 Glucose 106 mg/dL (65-99) H 12/15/22 04:15 Calcium 8.2 mg/dL (8.5-10.1) L 12/15/22 04:15 Corrected Calcium 9.6 mg/dL (8.5-10.1) 12/15/22 04:15 Total Bilirubin 0.40 mg/dL (0.2-1.0) 12/15/22 04:15 AST 14 Units/L (15-37) L 12/15/22 04:15 ALT 10 Units/L (12-78) L 12/15/22 04:15 Alkaline Phosphatase 54 Units/L (46-116) 12/15/22 04:15 Total Protein 6.4 g/dL (6.4-8.2) 12/15/22 04:15 Albumin 2.3 g/dL (3.4-5.0) L 12/15/22 04:15 Globulin 4.1 g/dL (2.5-4.5) 12/15/22 04:15 Albumin/Globulin Ratio 0.6 Ratio (1.1-2.1) L 12/15/22 04:15 Amylase 25 Units/L (25-115) 12/13/22 13:20 Lipase 48 Units/L (73-393) L 12/13/22 13:20 Specimen Type Clean catch urine 12/13/22 16:29 Urine Color Yellow (YELLOW) 12/13/22 16:29 Urine Appearance Slightly hazy (CLEAR) 12/13/22 16:29 Urine pH 7.0 (5.0 - 8.0) 12/13/22 16:29 Ur Specific [place] 1.005 (1.000-1.030) 12/13/22 16:29 Urine Protein 1+ (NEGATIVE) 12/13/22 16: Urine Glucose (UA) Negative (NEGATIVE) 12/13/22 16: Urine Ketones Negative (NEGATIVE) 12/13/22 16: Urine Blood 1+ (NEGATIVE) 12/13/22 16: Urine Nitrite Negative (NEGATIVE) 12/13/22 16: Urine Bilirubin Negative (NEGATIVE) 12/13/22 16:29 Urine Urobilinogen 1+ (NORMAL) 12/13/22 16: Ur Leukocyte Esterase 1+ (NEGATIVE) 12/13/22 16: Urine RBC 3-5 /HPF (0-3) A 12/13/22 16:29 Urine WBC 0-2 /HPF (0-5) 12/13/22 16:29 Ur Squamous Epith Cells Rare /HPF (NEGATIVE) 12/13/22 16:29 Urine Bacteria Trace /HPF (NEGATIVE) 12/13/22 16:29 Ur Culture Indicated? No/not indicated 12/13/22 16:29 Assessment and Plan 1: resolved partial SBO . regular diet . to follow as out Pt in two weeks . Problem Patient Problems: Patient Problems (Updated 12/14/22 @ 18:42 by EDY TAO) Partial bowel obstruction (Acute) K56.062
[2022-12-15] MEDS: ELIQUIS PO SCH ×2 (09:38→21:17)
[2022-12-15] MEDS: NEURONTIN CAP 300 MG PO SCH ×2 (09:39→21:18)
[2022-12-15] MEDS: FLOMAX PO SCH (21:18)
[2022-12-16 05:41] LABS: BASOPHILS % (AUTO) 0.6 % (0.2-1.0); EOSINOPHILS # (AUTO) 0.2 x10^3/uL (0.0-0.2); EOSINOPHILS % (AUTO) 2.2 % (0.9-2.9); HEMATOCRIT 37.3 % (42.0-54.0); HEMOGLOBIN 12.3 g/dL (13.5-18.0); LYMPHOCYTES # (AUTO) 2.8 X10^3/uL (1.3-2.9); MEAN CORPUSCULAR HEMOGLOBIN 26.7 pg (27.0-34.0); MEAN CORPUSCULAR VOLUME 80.9 fL (80.0-100.0); MONOCYTES # (AUTO) 0.7 x10^3/uL (0.3-0.8); NEUTROPHILS # (AUTO) 4.6 x10^3/uL (2.2-4.8); NEUTROPHILS % (AUTO) 55.2 % (42.0-75.0); RED BLOOD COUNT 4.62 X10^6/uL (4.7-6.0); RED CELL DISTRIBUTION WIDTH 15.7 % (11.6-16.5); WHITE BLOOD COUNT 8.4 X10^3/uL (3.6-10.0)
[2022-12-16 05:59] LABS: ALANINE AMINOTRANSFERASE 12 Units/L (12-78); ALBUMIN 2.7 g/dL (3.4-5.0); ALKALINE PHOSPHATASE 57 Units/L (46-116); ASPARTATE AMINO TRANSFERASE 18 Units/L (15-37); BLOOD UREA NITROGEN 6 mg/dL (7-18); CALCIUM 8.8 mg/dL (8.5-10.1); CARBON DIOXIDE 30.7 mmol/L (21-32); CHLORIDE 105 mmol/L (98-107); COR CA(FOR HYPOALB) 9.8 mg/dL (8.5-10.1); CREATININE 0.78 mg/dL (0.70-1.30); SODIUM 141 mmol/L (136-145); eGFR NON BLACK RACES > 60 (>60)
[2022-12-16] MEDS: D5 1/2 NS 1,000 ML 1,000 ML IV SCH (06:24)
--- NOTE | 2022-12-16 07:40 | RAD ---
HISTORYBowel [id number]/28/2023 .br.br.br.br nonobstructive. Previously described right-sided abdominal dilated small bowel loops no longer identified. No abnormal masses or abnormal calcifications are identified. Regional skeleton is intact.IMPRESSIONUnremarkable KUB with resolution of the previously noted dilated small bowelElectronically signed by: ANDREY NGUYEN (Dec 16, 2022 07:39:26)
[2022-12-16] MEDS: ELIQUIS PO SCH (08:34)
[2022-12-16] MEDS: NEURONTIN CAP 300 MG PO SCH (08:34)
[2022-12-16 12:06] VITALS: BP 119/56
== END 2022-12-16 13:15 | disposition home or self-care (01) ==
LOC: ICU 12:07 → ER 12:07 → ICU 19:35 → MED/SURG 12-15 18:17
PROVIDERS: ADMIT Internal Medicine; ATTEND Internal Medicine
DX: R79.89 Other specified abnormal findings of blood chemistry; J96.02 Acute respiratory failure with hypercapnia; J44.9 Chronic obstructive pulmonary disease, unspecified; R82.998 Other abnormal findings in urine; I50.9 Heart failure, unspecified; Z85.048 Personal history of other malignant neoplasm of rectum, rectosigmoid junction, and anus; K56.51 Intestinal adhesions [bands], with partial obstruction; F17.210 Nicotine dependence, cigarettes, uncomplicated; Z43.3 Encounter for attention to colostomy; Z98.0 Intestinal bypass and anastomosis status

== ENCOUNTER 2022-12-23 15:02 | Inpatient (IN) ==
--- NOTE | 2022-12-23 15:19 | DR.ABDMALE ---
HPI Time seen Time Seen by Provider: 12/23/22 15:14 Complaint Chief Complaint Doctors Comments: 72 y/o male presents for evaluation. Has a distant h/o colon CA, with subsequent resection. Was hospitalized last week for partial small bowel obstruction. had stool in colostomy on d/c. Started having decreased stool output next day. Having nausea, vomiting, constipation. + abdominal distension. No report of fever, URI symptoms. + diffuse abdominal pain. Reviewed Nurses Notes Review: Yes Source History provided by:: Patient PMH PMH Past Medical History: CHF and COPD Past Medical History Comment: h/o colon CA Past Surgical History: Yes Surgical History: Bowel Resection, Cholecystectomy and Tonsillectomy Family History Family Medical History: Heart Failure Social History Do you use any recreational Drugs:: No ROS Review of Systems Constitutional: No Symptoms Reported Eyes: No Symptoms Reported ENTM: No Symptoms Reported Respiratoy: No Symptoms Reported Cardiovascular: No Symptoms Reported Gastrointestinal/Abdominal: See HPI Genitourinary: No Symptoms Reported Neurological: No Symptoms Reported Musculoskeletal: No Symptoms Reported Integumentary: No Symptoms Reported All Other Systems: Reviewed and Negative PE Vital Signs Vital Signs: Temp Pulse Resp BP BP Pulse Ox O2 Del Method 12/23/22 16:57 20 12/23/22 15:14 97.9 F 88 20 145/83 94 L Room Air 12/16/22 12:00 119/56 12/16/22 08:15 12/13/22 18:18 119/58 FiO2 12/23/22 16:57 12/23/22 15:14 12/16/22 12:00 12/16/22 08:15 28 12/13/22 18:18 General General Appearance: Alert and In No Apparent Distress Eyes Eye exam: PERRL and EOMI ENT ENT Exam: Mucous Membranes Moist Neck Neck Exam: Normal Inspection Respiratory Respiratory Exam: Normal Lung Sounds Bilat; negative Accessory Muscle Use or Respiratory Distress Cardiovascular Cardiovascular Exam: Regular Rate, Normal Rhythm and Normal Heart Sounds Abdominal Exam Abdominal Exam: Soft, Distention and Tenderness (all quadrants, with degree of guarding/rebound. ) Extremeties Extremities Exam: Normal Inspection, Full ROM and Other (+ distal pulses intact.); negative Edema Neurologic Neurological Exam: Alert, Oriented X3 and CN II-XII Intact; negative Motor Sensory Deficit Skin Skin Exam: Warm and Dry COURSE Treatment Treatment: Pt with recent partial SBO, appears to have returned. W/u initiated. Pt given IV fluids, IV zofran. Acute abd series with markedly distended loops of bowels. Pt given IV morphine, will place NG tube to low-intermittent s uction. Labs show TNTC in his urine. Given IV levaquin for UTI. Discussed with Dr Rose, accepts the admission. Dr Lyn consulted for SBO. CT pending. ROR Labs Reviewed Laboratory Results Reviewed?: Yes Result Diagrams: 12/23/22 15:40 12/23/22 16:45 Laboratory: WBC 12.1 X10^3/uL (3.6-10.0) H 12/23/22 15:40 RBC 5.11 X10^6/uL (4.7-6.0) 12/23/22 15:40 Hgb 13.4 g/dL (13.5-18.0) L 12/23/22 15:40 Hct 41.4 % (42.0-54.0) L 12/23/22 15:40 MCV 80.9 fL (80.0-100.0) 12/23/22 15:40 MCH 26.2 pg (27.0-34.0) L 12/23/22 15:40 MCHC 32.4 g/dL (33.0-35.0) L 12/23/22 15:40 RDW 15.9 % (11.6-16.5) 12/23/22 15:40 Plt Count 335 X10^3/uL (150.0-450.0) 12/23/22 15:40 MPV 7.6 fL (7.4-11.0) 12/23/22 15:40 Neut % (Auto) 82.0 % (42.0-75.0) H 12/23/22 15:40 Lymph % (Auto) 12.9 % (21.0-51.0) L 12/23/22 15:40 [place] % (Auto) 4.3 % (0.0-13.0) 12/23/22 15:40 Eos % (Auto) 0.3 % (0.9-2.9) L 12/23/22 15:40 Baso % (Auto) 0.5 % (0.2-1.0) 12/23/22 15:40 Neut # (Auto) 9.9 x10^3/uL (2.2-4.8) H 12/23/22 15:40 Lymph # (Auto) 1.6 X10^3/uL (1.3-2.9) 12/23/22 15:40 [place] # (Auto) 0.5 x10^3/uL (0.3-0.8) 12/23/22 15:40 Eos # (Auto) 0.0 x10^3/uL (0.0-0.2) 12/23/22 15:40 Baso # (Auto) 0.1 X10^3/uL (0.0-0.1) 12/23/22 15:40 Absolute Nucleated RBC 0.0 /100WBC 12/23/22 15:40 Sodium 138 mmol/L (136-145) 12/23/22 16:45 Corrected Sodium 139 mmol/L (136-145) 12/23/22 16:45 Potassium 4.6 mmol/L (3.5-5.1) 12/23/22 16:45 Chloride 103 mmol/L (98-107) 12/23/22 16:45 Carbon Dioxide 29.7 mmol/L (21-32) 12/23/22 16:45 BUN 11 mg/dL (7-18) 12/23/22 16:45 Creatinine 0.83 mg/dL (0.70-1.30) 12/23/22 16:45 Est GFR (MDRD) Af Amer > 60 (>60) 12/23/22 16:45 Est GFR (MDRD) Non-Af > 60 (>60) 12/23/22 16:45 Glucose 133 mg/dL (65-99) H 12/23/22 16:45 Calcium 9.0 mg/dL (8.5-10.1) 12/23/22 16:45 Corrected Calcium 9.8 mg/dL (8.5-10.1) 12/23/22 16:45 Total Bilirubin 0.80 mg/dL (0.2-1.0) 12/23/22 16:45 AST 17 Units/L (15-37) 12/23/22 16:45 ALT 19 Units/L (12-78) 12/23/22 16:45 Alkaline Phosphatase 68 Units/L (46-116) 12/23/22 16:45 Total Protein 7.8 g/dL (6.4-8.2) 12/23/22 16:45 Albumin 3.0 g/dL (3.4-5.0) L 12/23/22 16:45 Globulin 4.8 g/dL (2.5-4.5) H 12/23/22 16:45 Albumin/Globulin Ratio 0.6 Ratio (1.1-2.1) L 12/23/22 16:45 Lipase 32 Units/L (73-393) L 12/23/22 16:45 Specimen Type Random urine 12/23/22 16:20 Urine Color Yellow (YELLOW) 12/23/22 16:20 Urine Appearance Hazy (CLEAR) 12/23/22 16:20 Urine pH 5.0 (5.0 - 8.0) 12/23/22 16:20 Ur Specific [place] 1.025 (1.000-1.030) 12/23/22 16:20 Urine Protein 3+ (NEGATIVE) 12/23/22 16:20 Urine Glucose (UA) Negative (NEGATIVE) 12/23/22 16:20 Urine Ketones 3+ (NEGATIVE) 12/23/22 16:20 Urine Blood 3+ (NEGATIVE) 12/23/22 16:20 Urine Nitrite Negative (NEGATIVE) 12/23/22 16:20 Urine Bilirubin 1+ (NEGATIVE) 12/23/22 16:20 Urine Urobilinogen 2+ (NORMAL) 12/23/22 16:20 Ur Leukocyte Esterase 3+ (NEGATIVE) 12/23/22 16:20 Urine RBC 10-20 /HPF (0-3) A 12/23/22 16:20 Urine WBC Tntc /HPF (0-5) A 12/23/22 16:20 Ur Squamous Epith Cells Rare /HPF (NEGATIVE) 12/23/22 16:20 Urine Bacteria Trace /HPF (NEGATIVE) 12/23/22 16:20 Urine Mucus Few /HPF (NEGATIVE) 12/23/22 16:20 Ur Culture Indicated? No/not indicated 12/23/22 16:20 Opioid Opioid Risk Tool Age (Philip box if 16-45): No History of Preadolescent Sexual Abuse: No Total: 0 Total Score Risk Category: Low Risk Copyright: Jose Miguel FAN predicting aberrant behaviors Discharge Plan Diagnosis Discharge Problem: Small bowel obstruction, Acute UTI Discharge Plan Patient Disposition: ADMITTED INPATIENT Condition: Stable Prescriptions: No Action hydrocodone-acetaminophen 10-325 mg tablet 1 tab PO TID PRN tamsulosin 0.4 mg capsule 0.4 mg PO HS gabapentin 300 mg capsule 300 mg PO BID Eliquis 5 mg tablet 5 mg PO BID Health Concerns: Post Hospitalization: new medications and changes needed to prevent readmission or further decline. Pt educated and given instructions on all concerns. Plan of Treatment: Continue with present treatment and follow up plan. Pt is to keep follow up appointment as instructed and take medications as ordered. Orders to Discharge Patient Discharge Orders: Transfer (Routine); Ordered 12/23/22 Ordered By: Sb Jean Follow ups/Referrals Follow ups/Referrals: EDY TAO [Primary Care Provider] - 3 days
[2022-12-23] MEDS ORDERED: ZOFRAN INJ 4 MG VIAL IVP ONE (15:23)
[2022-12-23] MEDS ORDERED: NS 500 ML IV 500 ML IV ONE ×2 (15:24→15:28)
[2022-12-23] MEDS ORDERED: ZOFRAN INJ 4 MG VIAL ONE (15:28)
[2022-12-23 15:52] LABS: BASOPHILS # (AUTO) 0.1 X10^3/uL (0.0-0.1); BASOPHILS % (AUTO) 0.5 % (0.2-1.0); EOSINOPHILS % (AUTO) 0.3 % (0.9-2.9); HEMATOCRIT 41.4 % (42.0-54.0); HEMOGLOBIN 13.4 g/dL (13.5-18.0); LYMPHOCYTES # (AUTO) 1.6 X10^3/uL (1.3-2.9); LYMPHOCYTES % (AUTO) 12.9 % (21.0-51.0); MEAN CORPUSCULAR HEMOGLOBIN 26.2 pg (27.0-34.0); MEAN CORPUSCULAR HGB CONC 32.4 g/dL (33.0-35.0); MEAN CORPUSCULAR VOLUME 80.9 fL (80.0-100.0); MEAN PLATELET VOLUME 7.6 fL (7.4-11.0); MONOCYTES # (AUTO) 0.5 x10^3/uL (0.3-0.8); MONOCYTES % (AUTO) 4.3 % (0.0-13.0); NEUTROPHILS # (AUTO) 9.9 x10^3/uL (2.2-4.8); RED BLOOD COUNT 5.11 X10^6/uL (4.7-6.0); RED CELL DISTRIBUTION WIDTH 15.9 % (11.6-16.5); WHITE BLOOD COUNT 12.1 X10^3/uL (3.6-10.0)
[2022-12-23] MEDS ORDERED: MORPHINE SULFATE INJ 4 MG IVP ONE ×2 (16:19→19:02)
[2022-12-23] MEDS ORDERED: MORPHINE SULFATE INJ 4 MG ONE ×3 (16:34→18:58)
[2022-12-23 16:41] LABS: BILIRUBIN,URINE 1+ (NEGATIVE); BLOOD/HEMOGLOBIN,URINE 3+ (NEGATIVE); GLUCOSE, URINE NEGATIVE (NEGATIVE); KETONES,URINE 3+ (NEGATIVE); LEUKOCYTE ESTERASE ,URINE 3+ (NEGATIVE); NITRITES,URINE NEGATIVE (NEGATIVE); PROTEIN,URINE 3+ (NEGATIVE); UROBILINOGEN,URINE 2+ (NORMAL)
[2022-12-23 16:50] LABS: APPEARANCE,URINE HAZY (CLEAR); BACTERIA,URINE TRACE /HPF (NEGATIVE); COLOR,URINE YELLOW (YELLOW); SQUAMOUS EPITHELIAL CELL,UR RARE /HPF (NEGATIVE)
[2022-12-23 17:07] LABS: ALANINE AMINOTRANSFERASE 19 Units/L (12-78); ALKALINE PHOSPHATASE 68 Units/L (46-116); ASPARTATE AMINO TRANSFERASE 17 Units/L (15-37); BLOOD UREA NITROGEN 11 mg/dL (7-18); CARBON DIOXIDE 29.7 mmol/L (21-32); CHLORIDE 103 mmol/L (98-107); COR CA(FOR HYPOALB) 9.8 mg/dL (8.5-10.1); COR NA(FOR HYPERGLY) 139 mmol/L (136-145); CREATININE 0.83 mg/dL (0.70-1.30); LIPASE 32 Units/L (73-393); SODIUM 138 mmol/L (136-145); TOTAL PROTEIN 7.8 g/dL (6.4-8.2); eGFR NON BLACK RACES > 60 (>60)
[2022-12-23] MEDS ORDERED: LEVAQUIN PREMIX IV 750 MG 750 MG/150 ML BAG IV ONE ×2 (17:09→17:33)
[2022-12-23] MEDS ORDERED: NS 100 ML IV 100 ML ONE (17:37)
--- NOTE | 2022-12-23 20:15 | CT ---
HISTORYC/O 2 DAY HISTORY OF NAUSEA, VOMITING, DECREASED OUTPUT FROM ILEOSTOMY, CONSTANT DULL PAIN JUST UNDER THE UMBILICAL AREA WITH INTERMITTENT SHARP STABBING PAINSTUDYABDOMEN/PELVIS WITH [id number]/05/2021.TECHNIQUEMultipl e axial images of the abdomen and pelvis were obtained from the lung bases to the pubic symphysis after the administration of IV contrast. Dose reduction techniques including Automated Exposure Control (AEC) and adjustment of mA and kV were utilized.FINDINGSThere is some mild basilar atelectasis. There is a calcified granuloma in the right base. There is no pleural effusion. Heart size is normal. There is atherosclerosis in the LAD, circumflex, and RCA. Nasogastric tube terminates in the stomach in good position. There is air-fluid level in the stomach. The liver is normal. There is a small area of focal fatty infiltration along the falciform ligament. The gallbladder has been removed. Pancreas is atrophic. The spleen is normal. There is a small adenoma in the left adrenal. The kidneys are normal in size and enhancement. There are tiny cysts in both kidneys. There is no stone or hydronephrosis. There is abnormal dilation of the small bowel with diameter measuring up to 5.3 cm. The terminal ileum is relatively collapsed. The transition point appears to be in the pelvis but is poorly defined. There are air-fluid levels in the colon but the colon is not abnormally dilated. There is a colostomy in the upper abdomen near the midline. The urinary bladder wall is mildly thickened. There is moderate systemic atherosclerosis. There is no worrisome bone marrow lesion.IMPRESSION1. Small-bowel obstruction with transition point probably in the deep pelvis. 2. Air-fluid levels in the colon but no colonic obstruction. 3. Nonspecific bladder wall thickening.Electronically signed by: Newton Green (Dec 23, 2022 20:13:49)
--- NOTE | 2022-12-23 21:01 | RAD ---
EXAM: ABDOMEN X-RAY (or KUB)HISTORY: Nasogastric tube verification status post placement.TECHNIQUE: Supine viewCOMPARISON: Abdomen x-ray dated December 15, 2022.FINDINGS:Nasogastric tube is noted with the distal tip (coursing cephalad) within the lateral aspect of the gastric fundus, and the proximal sidehole just distal to the gastroesophageal junction.There are up to 5.2 cm dilated air-filled small bowel loops in keeping with high-grade small bowel obstruction and/or ileus (new finding). Correlation with CT may be beneficial for further characterization.There is no gross organomegaly, free intraperitoneal air, or suspicious calcifications seen.Multilevel severe DDD is seen throughout the distal thoracic and lumbar spine. The visualized bony structures are otherwise within normal limits.IMPRESSION:1. Nasogastric tube is noted with the distal tip (coursing cephalad) within the lateral aspect of the gastric fundus, and the proximal sidehole just distal to the gastroesophageal junction.2. Up to 5.2 cm dilated air-filled small bowel loops in keeping with high-grade small bowel obstruction and/or ileus (new finding). Correlation with CT may be beneficial for further characterization.Electronically signed by: Julio West (Dec 23, 2022 21:00:44)
[2022-12-23 21:14] VITALS: BMI 32.6
[2022-12-23] MEDS: ZOFRAN INJ 4 MG VIAL IVP PRN (23:35)
[2022-12-23] MEDS: MORPHINE SULFATE INJ 4 MG IVP PRN (23:40)
--- NOTE | 2022-12-24 01:21 | RAD ---
HISTORYABD PAIN, RECENT SBO Relevant Clinical InformationSTUDYACUTE ABDOMEN [id number]/01/2023FINDINGSThe trachea is midline. Right Port-A-Cath tip in distal SVC. The cardiac silhouette is [unremarkable]. [The lungs are clear without focal mass or consolidation. There is no effusion or pneumothorax.] [The bony thorax is unremarkable].Flat plate and upright evaluation of the abdomen demonstrates a [multiple moderately dilated loops of small bowel consistent with obstruction.]. Surgical clips right upper quadrant. There is no pneumoperitoneum. No pathological soft tissue mass or calcification can be observed. The bony structures are grossly intact.IMPRESSION1. [No acute cardiopulmonary disease.]2. [Multiple moderately dilated loops of small bowel consistent with obstruction.]Electronically signed by: Candido Yousif (Dec 24, 2022 01:20:26)
[2022-12-24 06:34] LABS: BASOPHILS % (AUTO) 0.5 % (0.2-1.0); EOSINOPHILS # (AUTO) 0.1 x10^3/uL (0.0-0.2); EOSINOPHILS % (AUTO) 1.7 % (0.9-2.9); HEMATOCRIT 40.5 % (42.0-54.0); HEMOGLOBIN 13.1 g/dL (13.5-18.0); LYMPHOCYTES # (AUTO) 2.2 X10^3/uL (1.3-2.9); LYMPHOCYTES % (AUTO) 30.1 % (21.0-51.0); MEAN CORPUSCULAR HEMOGLOBIN 26.3 pg (27.0-34.0); MEAN CORPUSCULAR HGB CONC 32.4 g/dL (33.0-35.0); MEAN CORPUSCULAR VOLUME 81.2 fL (80.0-100.0); MEAN PLATELET VOLUME 7.7 fL (7.4-11.0); MONOCYTES # (AUTO) 0.7 x10^3/uL (0.3-0.8); MONOCYTES % (AUTO) 9.5 % (0.0-13.0); NEUTROPHILS # (AUTO) 4.2 x10^3/uL (2.2-4.8); NEUTROPHILS % (AUTO) 58.2 % (42.0-75.0); RED BLOOD COUNT 4.99 X10^6/uL (4.7-6.0); RED CELL DISTRIBUTION WIDTH 15.9 % (11.6-16.5); WHITE BLOOD COUNT 7.3 X10^3/uL (3.6-10.0)
[2022-12-24 06:56] LABS: ALANINE AMINOTRANSFERASE 13 Units/L (12-78); ALBUMIN 2.6 g/dL (3.4-5.0); ALKALINE PHOSPHATASE 63 Units/L (46-116); ASPARTATE AMINO TRANSFERASE 36 Units/L (15-37); BLOOD UREA NITROGEN 9 mg/dL (7-18); CALCIUM 8.8 mg/dL (8.5-10.1); CARBON DIOXIDE 23.2 mmol/L (21-32); CHLORIDE 101 mmol/L (98-107); COR CA(FOR HYPOALB) 9.9 mg/dL (8.5-10.1); CREATININE 0.59 mg/dL (0.70-1.30); SODIUM 134 mmol/L (136-145); TOTAL PROTEIN 7.4 g/dL (6.4-8.2); eGFR NON BLACK RACES > 60 (>60)
[2022-12-24] MEDS ORDERED: NS 500 ML IV 500 ML IV ONE (09:43)
[2022-12-24] MEDS: MORPHINE SULFATE INJ 4 MG IVP PRN ×2 (09:48→20:16)
[2022-12-24] MEDS: LEVAQUIN PREMIX IV 750 MG 750 MG/150 ML BAG IV SCH (09:48)
[2022-12-24] MEDS: D5 1/2 NS 1,000 ML 1,000 ML IV SCH ×3 (10:27→22:36)
[2022-12-24] MEDS: PROTONIX TAB 40 MG PO SCH (10:27)
--- NOTE | 2022-12-24 10:58 | DR.PROGNOT ---
HOSPITAL PROGRESS NOTE Progress Note for Day of: Progress Note Date: 12/24/22 Chief Complaint Chief Complaint: feeling much better today .. less abdominal pain . no nausea . lab work in normal today . afebrile . Past Medical Family Social History Past Med/Fam/Surg Hx: No changes since H&P Allergies: Allergies cortisone Adverse Reaction (Verified 12/13/22 21:19) Vital Signs Vital Signs: Temperature 97.6 F Pulse Rate [Left Brachial] 65 Pulse Rate 88 Respiratory Rate 20 Blood Pressure [Left Arm] 127/63 Blood Pressure 145/83 O2 Sat by Pulse Oximetry 98 Physical Exam GI: Tenderness: Other (soft, flat abdomen with minimal lower abdominal tenderness .. BS+) Speech Pattern: Clear and Appropriate Laboratory and Diagnostics Result Diagrams: 12/24/22 05:37 12/24/22 05:37 Labs: Laboratory WBC 7.3 X10^3/uL (3.6-10.0) 12/24/22 05:37 RBC 4.99 X10^6/uL (4.7-6.0) 12/24/22 05:37 Hgb 13.1 g/dL (13.5-18.0) L 12/24/22 05:37 Hct 40.5 % (42.0-54.0) L 12/24/22 05:37 MCV 81.2 fL (80.0-100.0) 12/24/22 05:37 MCH 26.3 pg (27.0-34.0) L 12/24/22 05:37 MCHC 32.4 g/dL (33.0-35.0) L 12/24/22 05:37 RDW 15.9 % (11.6-16.5) 12/24/22 05:37 Plt Count 269 X10^3/uL (150.0-450.0) 12/24/22 05:37 MPV 7.7 fL (7.4-11.0) 12/24/22 05:37 Neut % (Auto) 58.2 % (42.0-75.0) 12/24/22 05:37 Lymph % (Auto) 30.1 % (21.0-51.0) 12/24/22 05:37 [place] % (Auto) 9.5 % (0.0-13.0) 12/24/22 05:37 Eos % (Auto) 1.7 % (0.9-2.9) 12/24/22 05:37 Baso % (Auto) 0.5 % (0.2-1.0) 12/24/22 05:37 Neut # (Auto) 4.2 x10^3/uL (2.2-4.8) 12/24/22 05:37 Lymph # (Auto) 2.2 X10^3/uL (1.3-2.9) 12/24/22 05:37 [place] # (Auto) 0.7 x10^3/uL (0.3-0.8) 12/24/22 05:37 Eos # (Auto) 0.1 x10^3/uL (0.0-0.2) 12/24/22 05:37 Baso # (Auto) 0.0 X10^3/uL (0.0-0.1) 12/24/22 05:37 Absolute Nucleated RBC 0.2 /100WBC 12/24/22 05:37 Sodium 134 mmol/L (136-145) L 12/24/22 05:37 Corrected Sodium TNP 12/24/22 05:37 Potassium 4.7 mmol/L (3.5-5.1) 12/24/22 05:37 Chloride 101 mmol/L (98-107) 12/24/22 05:37 Carbon Dioxide 23.2 mmol/L (21-32) 12/24/22 05:37 BUN 9 mg/dL (7-18) 12/24/22 05:37 Creatinine 0.59 mg/dL (0.70-1.30) L 12/24/22 05:37 Est GFR (MDRD) Af Amer > 60 (>60) 12/24/22 05:37 Est GFR (MDRD) Non-Af > 60 (>60) 12/24/22 05:37 Glucose 72 mg/dL (65-99) 12/24/22 05:37 POC Glucose (mg/dL) 90 mg/dL (65-99) 12/24/22 05:24 Calcium 8.8 mg/dL (8.5-10.1) 12/24/22 05:37 Corrected Calcium 9.9 mg/dL (8.5-10.1) 12/24/22 05:37 Total Bilirubin 0.70 mg/dL (0.2-1.0) 12/24/22 05:37 AST 36 Units/L (15-37) 12/24/22 05:37 ALT 13 Units/L (12-78) 12/24/22 05:37 Alkaline Phosphatase 63 Units/L (46-116) 12/24/22 05:37 Total Protein 7.4 g/dL (6.4-8.2) 12/24/22 05:37 Albumin 2.6 g/dL (3.4-5.0) L 12/24/22 05:37 Globulin 4.8 g/dL (2.5-4.5) H 12/24/22 05:37 Albumin/Globulin Ratio 0.5 Ratio (1.1-2.1) L 12/24/22 05:37 Lipase 32 Units/L (73-393) L 12/23/22 16:45 Specimen Type Random urine 12/23/22 16:20 Urine Color Yellow (YELLOW) 12/23/22 16:20 Urine Appearance Hazy (CLEAR) 12/23/22 16:20 Urine pH 5.0 (5.0 - 8.0) 12/23/22 16:20 Ur Specific [place] 1.025 (1.000-1.030) 12/23/22 16:20 Urine Protein 3+ (NEGATIVE) 12/23/22 16:20 Urine Glucose (UA) Negative (NEGATIVE) 12/23/22 16:20 Urine Ketones 3+ (NEGATIVE) 12/23/22 16:20 Urine Blood 3+ (NEGATIVE) 12/23/22 16:20 Urine Nitrite Negative (NEGATIVE) 12/23/22 16:20 Urine Bilirubin 1+ (NEGATIVE) 12/23/22 16:20 Urine Urobilinogen 2+ (NORMAL) 12/23/22 16:20 Ur Leukocyte Esterase 3+ (NEGATIVE) 12/23/22 16:20 Urine RBC 10-20 /HPF (0-3) A 12/23/22 16:20 Urine WBC Tntc /HPF (0-5) A 12/23/22 16:20 Ur Squamous Epith Cells Rare /HPF (NEGATIVE) 12/23/22 16:20 Urine Bacteria Trace /HPF (NEGATIVE) 12/23/22 16:20 Urine Mucus Few /HPF (NEGATIVE) 12/23/22 16:20 Ur Culture Indicated? No/not indicated 12/23/22 16:20 Assessment and Plan 1: subsiding partial SBO. same NGT , IVF . repeat KUB in am . 2: abdominal adhesions 3: h/o colon ca , s/p colostomy . Problem Patient Problems: Patient Problems (Updated 12/23/22 @ 18:38 by Sb Jean) Small bowel obstruction (Acute) K56.609 Acute UTI (Acute) N39.0
--- NOTE | 2022-12-24 11:22 | DR.H&P ---
H&P - History & Physical for Day of: H&P Date: 12/23/22 - Chief Complaint Chief Complaint: ABDOMINAL PAIN - History of Present Illness History of Present Illness: PT IS 72 WM, ER ADMISSION WITH SBO. PT HAS PMH OF COLON CANCER WITH COLOSTOMY IN PLACE. HE IS FOLLOWED BY ONCOLOGIST DR BOJORQUEZ. PT HAS PMH OF COPD AND DVT WELL. PT ADMITTED FOR TREATMENT AND EVALUATION OF ACUTE ILLNESS. - Past Medical History Past Medical History: Arthritis, CHF, COPD Additional Medical History: COLON CANCER, DVT - Past Surgical History Surgical History: Bowel Resection, Cholecystectomy, Tonsillectomy - Family History Family Medical History: Heart Failure - Social History Does patient currently use any type of tobacco product: Yes Have you used tobacco products in the last 12 months: Yes Type of Tobacco Use: Cigarettes Does any household member use tobacco: No Alcohol Use: None Drug Use: None - Medications Home Medications: cortisone Adverse Reaction (Verified 12/13/22 21:19) - Review of Systems Constitutional: Weakness Eyes: No Symptoms Reported ENT: No Symptoms Reported Respiratory: SOB with Excertion Cardiovascular: No Symptoms Reported. denies: Edema Gastrointestinal: Nausea, Vomiting, Abdominal Pain Genitourinary: No Symptoms Reported Musculoskeletal: No Symptoms Reported Skin: No Symptoms Reported Neurological: No Symptoms Reported - Physical Exam Vital Signs: Temperature 97.6 F Pulse Rate [Left Brachial] 65 Pulse Rate 88 Respiratory Rate 20 Blood Pressure [Left Arm] 127/63 Blood Pressure 145/83 O2 Sat by Pulse Oximetry 98 Oriented: Normal, Person Ear: Normal Nose: Normal Throat: Normal Respiratory: RLL Diminished, LLL Diminished Cardiovascular: Normal. negative: Edema : Normal Auscultation: Bowel Sounds: Decreased Tenderness: Diffuse Skin: Decreased Turgur Musculoskeletal: Left, Shoulder, Back:Lumbar, Tender Psychiatric: Normal Mood Description: Calm Speech Pattern: Clear, Appropriate - Assessment/Plan (1) Small bowel obstruction Status: Acute Plan: ADMIT, NPO, SURGICAL CONSULT. GENTLE IV HYDRATION, I&OS. CT ABD/PELVIS OBTAINED ON ADMISSION. NG TUBE AT LIS, BP CONTROL. PAIN CONTROL, IV LEVAQUIN. (2) COPD (chronic obstructive pulmonary disease) Status: Acute - Allergies Allergies/Adverse Reactions: Allergies Allergy/AdvReac Type Severity Reaction Status Date / Time cortisone AdvReac Verified 12/13/22 21:19
--- NOTE | 2022-12-24 12:42 | RAD ---
HISTORYACUTE [id number]/09/2023 .br.br stomach.Gas is present in dilated bowel measuring up to the 6 cm. There is a small a moderate amount of gas in the colon. The findings are unchanged from yesterday. No pneumoperitoneum.Degenerative changes are present in the spine. Old healed left rib fracture.Surgical clips are present in the right upper abdomen, probably from a cholecystectomy.IMPRESSION1. Unchanged small bowel obstructionElectronically signed by: Daljit Brooks (Dec 24, 2022 12:41:20)
[2022-12-25] MEDS: MORPHINE SULFATE INJ 4 MG IVP PRN ×4 (03:03→19:52)
[2022-12-25 06:12] LABS: BASOPHILS % (AUTO) 0.6 % (0.2-1.0); EOSINOPHILS # (AUTO) 0.2 x10^3/uL (0.0-0.2); EOSINOPHILS % (AUTO) 2.1 % (0.9-2.9); HEMATOCRIT 36.5 % (42.0-54.0); LYMPHOCYTES % (AUTO) 27.4 % (21.0-51.0); MEAN CORPUSCULAR HEMOGLOBIN 26.3 pg (27.0-34.0); MEAN CORPUSCULAR HGB CONC 32.8 g/dL (33.0-35.0); MEAN CORPUSCULAR VOLUME 80.2 fL (80.0-100.0); MEAN PLATELET VOLUME 7.2 fL (7.4-11.0); MONOCYTES # (AUTO) 0.6 x10^3/uL (0.3-0.8); MONOCYTES % (AUTO) 8.2 % (0.0-13.0); NEUTROPHILS # (AUTO) 4.6 x10^3/uL (2.2-4.8); NEUTROPHILS % (AUTO) 61.7 % (42.0-75.0); RED BLOOD COUNT 4.55 X10^6/uL (4.7-6.0); RED CELL DISTRIBUTION WIDTH 15.6 % (11.6-16.5); WHITE BLOOD COUNT 7.4 X10^3/uL (3.6-10.0)
[2022-12-25 06:26] LABS: ALANINE AMINOTRANSFERASE 10 Units/L (12-78); ALBUMIN 2.4 g/dL (3.4-5.0); ALKALINE PHOSPHATASE 55 Units/L (46-116); ASPARTATE AMINO TRANSFERASE 17 Units/L (15-37); BLOOD UREA NITROGEN 7 mg/dL (7-18); CALCIUM 8.4 mg/dL (8.5-10.1); CARBON DIOXIDE 28.4 mmol/L (21-32); CHLORIDE 101 mmol/L (98-107); COR CA(FOR HYPOALB) 9.7 mg/dL (8.5-10.1); CREATININE 0.65 mg/dL (0.70-1.30); SODIUM 133 mmol/L (136-145); TOTAL PROTEIN 6.6 g/dL (6.4-8.2); eGFR NON BLACK RACES > 60 (>60)
[2022-12-25] MEDS ORDERED: MICRO K EXTEN CAP 10 MEQ PO PRN (07:06)
[2022-12-25] MEDS: LEVAQUIN PREMIX IV 750 MG 750 MG/150 ML BAG IV SCH (08:27)
[2022-12-25] MEDS: PROTONIX TAB 40 MG PO SCH (08:27)
[2022-12-25] MEDS: K-DUR TAB 20 MEQ PO PRN (08:28)
--- NOTE | 2022-12-25 09:12 | RAD ---
HISTORY:Small bowel obstructionStudy:Single view abdomenComparison:CT 12/23/2022FINDINGS/IMPRESSION:There is persistent dilation of small bowel loops throughout the abdomen consistent with obstruction. Enteric tube terminates in the proximal stomach.Electronically signed by: ALEN KIRKLAND (Dec 25, 2022 09:11:08)
--- NOTE | 2022-12-25 09:39 | DR.PROGNOT ---
HOSPITAL PROGRESS NOTE Progress Note for Day of: Progress Note Date: 12/25/22 Chief Complaint Chief Complaint: having moderate abdominal pain . colostomy is not functioning today . CBC .renal functioning and LFT all normal .. KUB still showing partial SBO . Past Medical Family Social History Allergies: Allergies cortisone Adverse Reaction (Verified 12/13/22 21:19) Review Of Systems ROS: No change since H&P Vital Signs Vital Signs: Temperature 97.8 F Pulse Rate [Left Brachial] 66 Pulse Rate 88 Respiratory Rate 16 Blood Pressure [Left Arm] 133/68 Blood Pressure 145/83 O2 Sat by Pulse Oximetry 96 Physical Exam Oriented: Normal and Person Ear: Normal Nose: Normal Throat: Normal Cardiovascular: Normal; negative Edema : Normal GI:Auscultation: Decreased GI:Palpation: Other (full abdomen with moderate tenderness more on the lower abdomen .. BS+ ) GI: Tenderness: Diffuse Skin: Decreased Turgur Musculoskeletal: Left, Shoulder, Back:Lumbar and Tender Psychiatric: Normal Mood Description: Calm Speech Pattern: Clear and Appropriate Laboratory and Diagnostics Result Diagrams: 12/25/22 05:38 12/25/22 05:38 Labs: Laboratory WBC 7.4 X10^3/uL (3.6-10.0) 12/25/22 05:38 RBC 4.55 X10^6/uL (4.7-6.0) L 12/25/22 05:38 Hgb 12.0 g/dL (13.5-18.0) L 12/25/22 05:38 Hct 36.5 % (42.0-54.0) L 12/25/22 05:38 MCV 80.2 fL (80.0-100.0) 12/25/22 05:38 MCH 26.3 pg (27.0-34.0) L 12/25/22 05:38 MCHC 32.8 g/dL (33.0-35.0) L 12/25/22 05:38 RDW 15.6 % (11.6-16.5) 12/25/22 05:38 Plt Count 269 X10^3/uL (150.0-450.0) 12/25/22 05:38 MPV 7.2 fL (7.4-11.0) L 12/25/22 05:38 Neut % (Auto) 61.7 % (42.0-75.0) 12/25/22 05:38 Lymph % (Auto) 27.4 % (21.0-51.0) 12/25/22 05:38 [place] % (Auto) 8.2 % (0.0-13.0) 12/25/22 05:38 Eos % (Auto) 2.1 % (0.9-2.9) 12/25/22 05:38 Baso % (Auto) 0.6 % (0.2-1.0) 12/25/22 05:38 Neut # (Auto) 4.6 x10^3/uL (2.2-4.8) 12/25/22 05:38 Lymph # (Auto) 2.0 X10^3/uL (1.3-2.9) 12/25/22 05:38 [place] # (Auto) 0.6 x10^3/uL (0.3-0.8) 12/25/22 05:38 Eos # (Auto) 0.2 x10^3/uL (0.0-0.2) 12/25/22 05:38 Baso # (Auto) 0.0 X10^3/uL (0.0-0.1) 12/25/22 05:38 Absolute Nucleated RBC 0.0 /100WBC 12/25/22 05:38 Sodium 133 mmol/L (136-145) L 12/25/22 05:38 Corrected Sodium TNP 12/25/22 05:38 Potassium 3.6 mmol/L (3.5-5.1) 12/25/22 05:38 Chloride 101 mmol/L (98-107) 12/25/22 05:38 Carbon Dioxide 28.4 mmol/L (21-32) 12/25/22 05:38 BUN 7 mg/dL (7-18) 12/25/22 05:38 Creatinine 0.65 mg/dL (0.70-1.30) L 12/25/22 05:38 Est GFR (MDRD) Af Amer > 60 (>60) 12/25/22 05:38 Est GFR (MDRD) Non-Af > 60 (>60) 12/25/22 05:38 Glucose 90 mg/dL (65-99) 12/25/22 05:38 POC Glucose (mg/dL) 87 mg/dL (65-99) 12/24/22 16:16 Calcium 8.4 mg/dL (8.5-10.1) L 12/25/22 05:38 Corrected Calcium 9.7 mg/dL (8.5-10.1) 12/25/22 05:38 Magnesium 1.9 mg/dL (2.0-2.9) L 12/25/22 05:38 Total Bilirubin 0.40 mg/dL (0.2-1.0) 12/25/22 05:38 AST 17 Units/L (15-37) 12/25/22 05:38 ALT 10 Units/L (12-78) L 12/25/22 05:38 Alkaline Phosphatase 55 Units/L (46-116) 12/25/22 05:38 Total Protein 6.6 g/dL (6.4-8.2) 12/25/22 05:38 Albumin 2.4 g/dL (3.4-5.0) L 12/25/22 05:38 Globulin 4.2 g/dL (2.5-4.5) 12/25/22 05:38 Albumin/Globulin Ratio 0.6 Ratio (1.1-2.1) L 12/25/22 05:38 Lipase 32 Units/L (73-393) L 12/23/22 16:45 Specimen Type Random urine 12/23/22 16:20 Urine Color Yellow (YELLOW) 12/23/22 16:20 Urine Appearance Hazy (CLEAR) 12/23/22 16:20 Urine pH 5.0 (5.0 - 8.0) 12/23/22 16:20 Ur Specific [place] 1.025 (1.000-1.030) 12/23/22 16:20 Urine Protein 3+ (NEGATIVE) 12/23/22 16:20 Urine Glucose (UA) Negative (NEGATIVE) 12/23/22 16:20 Urine Ketones 3+ (NEGATIVE) 12/23/22 16:20 Urine Blood 3+ (NEGATIVE) 12/23/22 16:20 Urine Nitrite Negative (NEGATIVE) 12/23/22 16:20 Urine Bilirubin 1+ (NEGATIVE) 12/23/22 16:20 Urine Urobilinogen 2+ (NORMAL) 12/23/22 16:20 Ur Leukocyte Esterase 3+ (NEGATIVE) 12/23/22 16:20 Urine RBC 10-20 /HPF (0-3) A 12/23/22 16:20 Urine WBC Tntc /HPF (0-5) A 12/23/22 16:20 Ur Squamous Epith Cells Rare /HPF (NEGATIVE) 12/23/22 16:20 Urine Bacteria Trace /HPF (NEGATIVE) 12/23/22 16:20 Urine Mucus Few /HPF (NEGATIVE) 12/23/22 16:20 Ur Culture Indicated? No/not indicated 12/23/22 16:20 Assessment and Plan 1: subsiding partial SBO. same NGT , IVF . repeat KUB in am . 2: abdominal adhesions 3: h/o colon ca , s/p colostomy . Problem Patient Problems: Patient Problems (Updated 12/24/22 @ 11:22 by EDY TAO) COPD (chronic obstructive pulmonary disease) (Acute) J44.9 Small bowel obstruction (Acute) K56.609 Acute UTI (Acute) N39.0
[2022-12-25] MEDS: ZOFRAN INJ 4 MG VIAL IVP PRN (10:44)
--- NOTE | 2022-12-25 11:56 | PCM.PROG ---
Progress Note Progress Note for Day of Date of Exam: 12/25/22 Subjective Subjective: Patient seen at bedside, no acute events overnight. Patient is being treated for SBO. KUB today showed persistent dilation of loops. He has NGT in place. He is also being treated for UTI. Dr Plata also following and recommended to keep NGT today and repeat KUB in the AM. Labs/imaging reviewed: Hgb 12 Mg 1.9 Plan: continue NGT and NPO status. Continue hydration, anti-emetics and pain c ontrol. Continue IV Levaquin. Follow surgery recommendations. Replace electrolytes prn. Monitor AM labs/imaging. Past Medical Family Social History Past Med/Fam/Surg Hx: No changes since H&P Allergies: Allergies cortisone Adverse Reaction (Verified 12/13/22 21:19) Review of Systems ROS: No change since H&P Vital Signs and I&O's Vital Signs: Temperature 98.3 F Pulse Rate [Left Brachial] 69 Pulse Rate 88 Respiratory Rate 16 Blood Pressure [Left Arm] 132/68 Blood Pressure 145/83 O2 Sat by Pulse Oximetry 93 Intake and Output: Intake & Output 12/22/22 12/23/22 12/24/22 12/25/22 23:59 23:59 23:59 23:59 Intake Total 730 / 730 690 / 690 620 / 620 Output Total 450 / 450 3050 / 3050 1360 / 1360 Balance 280 / 280 -2360 / -2360 -740 / -740 Physical Exam Oriented: Normal Ear: Normal Nose: Normal Throat: Normal Cardiovascular: Normal Auscultation: Bowel Sounds: Decreased Tenderness: Diffuse Skin: Decreased Turgur Musculoskeletal: Left, Shoulder, Back:Lumbar and Tender Psychiatric: Normal Mood Description: Calm Speech Pattern: Clear and Appropriate Laboratory and Diagnostics Result Diagrams: 12/25/22 05:38 12/25/22 05:38 Labs: Laboratory WBC 7.4 X10^3/uL (3.6-10.0) 12/25/22 05:38 RBC 4.55 X10^6/uL (4.7-6.0) L 12/25/22 05:38 Hgb 12.0 g/dL (13.5-18.0) L 12/25/22 05:38 Hct 36.5 % (42.0-54.0) L 12/25/22 05:38 MCV 80.2 fL (80.0-100.0) 12/25/22 05:38 MCH 26.3 pg (27.0-34.0) L 12/25/22 05:38 MCHC 32.8 g/dL (33.0-35.0) L 12/25/22 05:38 RDW 15.6 % (11.6-16.5) 12/25/22 05:38 Plt Count 269 X10^3/uL (150.0-450.0) 12/25/22 05:38 MPV 7.2 fL (7.4-11.0) L 12/25/22 05:38 Neut % (Auto) 61.7 % (42.0-75.0) 12/25/22 05:38 Lymph % (Auto) 27.4 % (21.0-51.0) 12/25/22 05:38 [place] % (Auto) 8.2 % (0.0-13.0) 12/25/22 05:38 Eos % (Auto) 2.1 % (0.9-2.9) 12/25/22 05:38 Baso % (Auto) 0.6 % (0.2-1.0) 12/25/22 05:38 Neut # (Auto) 4.6 x10^3/uL (2.2-4.8) 12/25/22 05:38 Lymph # (Auto) 2.0 X10^3/uL (1.3-2.9) 12/25/22 05:38 [place] # (Auto) 0.6 x10^3/uL (0.3-0.8) 12/25/22 05:38 Eos # (Auto) 0.2 x10^3/uL (0.0-0.2) 12/25/22 05:38 Baso # (Auto) 0.0 X10^3/uL (0.0-0.1) 12/25/22 05:38 Absolute Nucleated RBC 0.0 /100WBC 12/25/22 05:38 Sodium 133 mmol/L (136-145) L 12/25/22 05:38 Corrected Sodium TNP 12/25/22 05:38 Potassium 3.6 mmol/L (3.5-5.1) 12/25/22 05:38 Chloride 101 mmol/L (98-107) 12/25/22 05:38 Carbon Dioxide 28.4 mmol/L (21-32) 12/25/22 05:38 BUN 7 mg/dL (7-18) 12/25/22 05:38 Creatinine 0.65 mg/dL (0.70-1.30) L 12/25/22 05:38 Est GFR (MDRD) Af Amer > 60 (>60) 12/25/22 05:38 Est GFR (MDRD) Non-Af > 60 (>60) 12/25/22 05:38 Glucose 90 mg/dL (65-99) 12/25/22 05:38 POC Glucose (mg/dL) 87 mg/dL (65-99) 12/24/22 16:16 Calcium 8.4 mg/dL (8.5-10.1) L 12/25/22 05:38 Corrected Calcium 9.7 mg/dL (8.5-10.1) 12/25/22 05:38 Magnesium 1.9 mg/dL (2.0-2.9) L 12/25/22 05:38 Total Bilirubin 0.40 mg/dL (0.2-1.0) 12/25/22 05:38 AST 17 Units/L (15-37) 12/25/22 05:38 ALT 10 Units/L (12-78) L 12/25/22 05:38 Alkaline Phosphatase 55 Units/L (46-116) 12/25/22 05:38 Total Protein 6.6 g/dL (6.4-8.2) 12/25/22 05:38 Albumin 2.4 g/dL (3.4-5.0) L 12/25/22 05:38 Globulin 4.2 g/dL (2.5-4.5) 12/25/22 05:38 Albumin/Globulin Ratio 0.6 Ratio (1.1-2.1) L 12/25/22 05:38 Lipase 32 Units/L (73-393) L 12/23/22 16:45 Specimen Type Random urine 12/23/22 16:20 Urine Color Yellow (YELLOW) 12/23/22 16:20 Urine Appearance Hazy (CLEAR) 12/23/22 16:20 Urine pH 5.0 (5.0 - 8.0) 12/23/22 16:20 Ur Specific [place] 1.025 (1.000-1.030) 12/23/22 16:20 Urine Protein 3+ (NEGATIVE) 12/23/22 16:20 Urine Glucose (UA) Negative (NEGATIVE) 12/23/22 16:20 Urine Ketones 3+ (NEGATIVE) 12/23/22 16:20 Urine Blood 3+ (NEGATIVE) 12/23/22 16:20 Urine Nitrite Negative (NEGATIVE) 12/23/22 16:20 Urine Bilirubin 1+ (NEGATIVE) 12/23/22 16:20 Urine Urobilinogen 2+ (NORMAL) 12/23/22 16:20 Ur Leukocyte Esterase 3+ (NEGATIVE) 12/23/22 16:20 Urine RBC 10-20 /HPF (0-3) A 12/23/22 16:20 Urine WBC Tntc /HPF (0-5) A 12/23/22 16:20 Ur Squamous Epith Cells Rare /HPF (NEGATIVE) 12/23/22 16:20 Urine Bacteria Trace /HPF (NEGATIVE) 12/23/22 16:20 Urine Mucus Few /HPF (NEGATIVE) 12/23/22 16:20 Ur Culture Indicated? No/not indicated 12/23/22 16:20 Plan (1) Small bowel obstruction: Status: Acute (2) COPD (chronic obstructive pulmonary disease): Status: Acute (3) UTI (urinary tract infection): Status: Acute Qualifiers: Hematuria presence: with hematuria Urinary tract infection type: site unspecified Qualified Code(s): N39.0 - Urinary tract infection, site not specified (4) Dehydration: Status: Acute
[2022-12-25] MEDS: D5 1/2 NS 1,000 ML 1,000 ML IV SCH (15:47)
[2022-12-25] MEDS: MAGNESIUM SULFATE 1 GRAM/100 mL PREMIX 1 G/100 ML BAG IV PRN ×2 (21:32→22:31)
[2022-12-26] MEDS: D5 1/2 NS 1,000 ML 1,000 ML IV SCH ×2 (03:24→05:24)
[2022-12-26] MEDS: MORPHINE SULFATE INJ 4 MG IVP PRN (04:02)
[2022-12-26 05:20] LABS: BASOPHILS % (AUTO) 0.5 % (0.2-1.0); EOSINOPHILS # (AUTO) 0.1 x10^3/uL (0.0-0.2); EOSINOPHILS % (AUTO) 0.8 % (0.9-2.9); HEMATOCRIT 37.1 % (42.0-54.0); HEMOGLOBIN 12.1 g/dL (13.5-18.0); LYMPHOCYTES # (AUTO) 1.7 X10^3/uL (1.3-2.9); LYMPHOCYTES % (AUTO) 20.1 % (21.0-51.0); MEAN CORPUSCULAR HGB CONC 32.6 g/dL (33.0-35.0); MEAN CORPUSCULAR VOLUME 79.8 fL (80.0-100.0); MEAN PLATELET VOLUME 7.2 fL (7.4-11.0); MONOCYTES # (AUTO) 0.8 x10^3/uL (0.3-0.8); MONOCYTES % (AUTO) 9.1 % (0.0-13.0); NEUTROPHILS # (AUTO) 5.9 x10^3/uL (2.2-4.8); NEUTROPHILS % (AUTO) 69.5 % (42.0-75.0); RED BLOOD COUNT 4.65 X10^6/uL (4.7-6.0); RED CELL DISTRIBUTION WIDTH 15.9 % (11.6-16.5); WHITE BLOOD COUNT 8.6 X10^3/uL (3.6-10.0)
[2022-12-26 05:51] LABS: ALANINE AMINOTRANSFERASE 13 Units/L (12-78); ALBUMIN 2.4 g/dL (3.4-5.0); ALKALINE PHOSPHATASE 54 Units/L (46-116); ASPARTATE AMINO TRANSFERASE 15 Units/L (15-37); BLOOD UREA NITROGEN 5 mg/dL (7-18); CALCIUM 8.3 mg/dL (8.5-10.1); CHLORIDE 98 mmol/L (98-107); COR CA(FOR HYPOALB) 9.6 mg/dL (8.5-10.1); CREATININE 0.69 mg/dL (0.70-1.30); MAGNESIUM 2.2 mg/dL (2.0-2.9); SODIUM 132 mmol/L (136-145); TOTAL PROTEIN 6.6 g/dL (6.4-8.2); eGFR NON BLACK RACES > 60 (>60)
[2022-12-26] MEDS: PROTONIX TAB 40 MG PO SCH (08:48)
[2022-12-26] MEDS: K-DUR TAB 20 MEQ PO PRN (08:48)
[2022-12-26] MEDS: LEVAQUIN PREMIX IV 750 MG 750 MG/150 ML BAG IV SCH (08:48)
--- NOTE | 2022-12-26 10:00 | RAD ---
HISTORYSBO, NGSTUDYKUB [id number] istent dilatation of bowel primarily small intestine, although some colon gas is identified. Stable position of NG tube coiled in the gastric fundus.IMPRESSIONNo change. Intestinal gas pattern remains consistent with ileus or partial SBO.Electronically signed by: REESE WHITLOCK (Dec 26, 2022 09:59:36)
[2022-12-26] MEDS: FLOMAX PO SCH (10:14)
--- NOTE | 2022-12-26 10:14 | DR.PROGNOT ---
HOSPITAL PROGRESS NOTE Progress Note for Day of: Progress Note Date: 12/26/22 Chief Complaint Chief Complaint: having moderate abdominal pain . colostomy is not functioning today . difficulty voiding CBC .renal functioning and LFT all normal .. KUB showed dilated loops of SB but there is air in the colon as well .( partial SBO ) Past Medical Family Social History Past Med/Fam/Surg Hx: No changes since H&P Allergies: Allergies cortisone Adverse Reaction (Verified 12/13/22 21:19) Review Of Systems ROS: No change since H&P Vital Signs Vital Signs: Temperature 98.4 F Pulse Rate [Left Brachial] 70 Pulse Rate 88 Respiratory Rate 18 Blood Pressure [Left Arm] 111/63 Blood Pressure 145/83 O2 Sat by Pulse Oximetry 96 Physical Exam Oriented: Normal Ear: Normal Nose: Normal Throat: Normal Cardiovascular: Normal : Normal GI:Auscultation: Decreased GI:Palpation: Other (full abdomen with moderate tenderness more on the lower abdomen .. BS+ ) GI: Tenderness: Diffuse Skin: Decreased Turgur Musculoskeletal: Left, Shoulder, Back:Lumbar and Tender Psychiatric: Normal Mood Description: Calm Speech Pattern: Clear and Appropriate Laboratory and Diagnostics Result Diagrams: 12/26/22 04:42 12/26/22 04:42 Labs: Laboratory WBC 8.6 X10^3/uL (3.6-10.0) 12/26/22 04:42 RBC 4.65 X10^6/uL (4.7-6.0) L 12/26/22 04:42 Hgb 12.1 g/dL (13.5-18.0) L 12/26/22 04:42 Hct 37.1 % (42.0-54.0) L 12/26/22 04:42 MCV 79.8 fL (80.0-100.0) L 12/26/22 04:42 MCH 26.0 pg (27.0-34.0) L 12/26/22 04:42 MCHC 32.6 g/dL (33.0-35.0) L 12/26/22 04:42 RDW 15.9 % (11.6-16.5) 12/26/22 04:42 Plt Count 284 X10^3/uL (150.0-450.0) 12/26/22 04:42 MPV 7.2 fL (7.4-11.0) L 12/26/22 04:42 Neut % (Auto) 69.5 % (42.0-75.0) 12/26/22 04:42 Lymph % (Auto) 20.1 % (21.0-51.0) L 12/26/22 04:42 [place] % (Auto) 9.1 % (0.0-13.0) 12/26/22 04:42 Eos % (Auto) 0.8 % (0.9-2.9) L 12/26/22 04:42 Baso % (Auto) 0.5 % (0.2-1.0) 12/26/22 04:42 Neut # (Auto) 5.9 x10^3/uL (2.2-4.8) H 12/26/22 04:42 Lymph # (Auto) 1.7 X10^3/uL (1.3-2.9) 12/26/22 04:42 [place] # (Auto) 0.8 x10^3/uL (0.3-0.8) 12/26/22 04:42 Eos # (Auto) 0.1 x10^3/uL (0.0-0.2) 12/26/22 04:42 Baso # (Auto) 0.0 X10^3/uL (0.0-0.1) 12/26/22 04:42 Absolute Nucleated RBC 0.0 /100WBC 12/26/22 04:42 Sodium 132 mmol/L (136-145) L 12/26/22 04:42 Corrected Sodium TNP 12/26/22 04:42 Potassium 3.5 mmol/L (3.5-5.1) 12/26/22 04:42 Chloride 98 mmol/L (98-107) 12/26/22 04:42 Carbon Dioxide 30.0 mmol/L (21-32) 12/26/22 04:42 BUN 5 mg/dL (7-18) L 12/26/22 04:42 Creatinine 0.69 mg/dL (0.70-1.30) L 12/26/22 04:42 Est GFR (MDRD) Af Amer > 60 (>60) 12/26/22 04:42 Est GFR (MDRD) Non-Af > 60 (>60) 12/26/22 04:42 Glucose 105 mg/dL (65-99) H 12/26/22 04:42 POC Glucose (mg/dL) 87 mg/dL (65-99) 12/24/22 16:16 Calcium 8.3 mg/dL (8.5-10.1) L 12/26/22 04:42 Corrected Calcium 9.6 mg/dL (8.5-10.1) 12/26/22 04:42 Magnesium 2.2 mg/dL (2.0-2.9) 12/26/22 04:42 Total Bilirubin 0.70 mg/dL (0.2-1.0) 12/26/22 04:42 AST 15 Units/L (15-37) 12/26/22 04:42 ALT 13 Units/L (12-78) 12/26/22 04:42 Alkaline Phosphatase 54 Units/L (46-116) 12/26/22 04:42 Total Protein 6.6 g/dL (6.4-8.2) 12/26/22 04:42 Albumin 2.4 g/dL (3.4-5.0) L 12/26/22 04:42 Globulin 4.2 g/dL (2.5-4.5) 12/26/22 04:42 Albumin/Globulin Ratio 0.6 Ratio (1.1-2.1) L 12/26/22 04:42 Lipase 32 Units/L (73-393) L 12/23/22 16:45 Specimen Type Random urine 12/23/22 16:20 Urine Color Yellow (YELLOW) 12/23/22 16:20 Urine Appearance Hazy (CLEAR) 12/23/22 16:20 Urine pH 5.0 (5.0 - 8.0) 12/23/22 16:20 Ur Specific [place] 1.025 (1.000-1.030) 12/23/22 16:20 Urine Protein 3+ (NEGATIVE) 12/23/22 16:20 Urine Glucose (UA) Negative (NEGATIVE) 12/23/22 16:20 Urine Ketones 3+ (NEGATIVE) 12/23/22 16:20 Urine Blood 3+ (NEGATIVE) 12/23/22 16:20 Urine Nitrite Negative (NEGATIVE) 12/23/22 16:20 Urine Bilirubin 1+ (NEGATIVE) 12/23/22 16:20 Urine Urobilinogen 2+ (NORMAL) 12/23/22 16:20 Ur Leukocyte Esterase 3+ (NEGATIVE) 12/23/22 16:20 Urine RBC 10-20 /HPF (0-3) A 12/23/22 16:20 Urine WBC Tntc /HPF (0-5) A 12/23/22 16:20 Ur Squamous Epith Cells Rare /HPF (NEGATIVE) 12/23/22 16:20 Urine Bacteria Trace /HPF (NEGATIVE) 12/23/22 16:20 Urine Mucus Few /HPF (NEGATIVE) 12/23/22 16:20 Ur Culture Indicated? No/not indicated 12/23/22 16:20 Assessment and Plan 1: partial SBO. same NGT , IVF . repeat KUB in am . 2: abdominal adhesions 3: h/o colon ca , s/p colostomy . 4: BPH . on Flomax daily . Problem Patient Problems: Patient Problems (Updated 12/25/22 @ 11:55 by Georgina Wills) COPD (chronic obstructive pulmonary disease) (Acute) J44.9 Small bowel obstruction (Acute) K56.609 Acute UTI (Acute) N39.0
[2022-12-26] MEDS: D5 NS 1,000 ML IV 1,000 ML IV SCH (19:56)
[2022-12-27] MEDS: D5 NS 1,000 ML IV 1,000 ML IV SCH ×3 (05:26→20:21)
[2022-12-27 05:35] LABS: BASOPHILS # (AUTO) 0.1 X10^3/uL (0.0-0.1); BASOPHILS % (AUTO) 0.7 % (0.2-1.0); EOSINOPHILS # (AUTO) 0.1 x10^3/uL (0.0-0.2); EOSINOPHILS % (AUTO) 1.1 % (0.9-2.9); HEMATOCRIT 38.7 % (42.0-54.0); HEMOGLOBIN 12.8 g/dL (13.5-18.0); LYMPHOCYTES % (AUTO) 22.7 % (21.0-51.0); MEAN CORPUSCULAR HEMOGLOBIN 26.3 pg (27.0-34.0); MEAN CORPUSCULAR HGB CONC 33.2 g/dL (33.0-35.0); MEAN CORPUSCULAR VOLUME 79.2 fL (80.0-100.0); MEAN PLATELET VOLUME 7.3 fL (7.4-11.0); MONOCYTES # (AUTO) 0.8 x10^3/uL (0.3-0.8); MONOCYTES % (AUTO) 8.8 % (0.0-13.0); NEUTROPHILS # (AUTO) 5.9 x10^3/uL (2.2-4.8); NEUTROPHILS % (AUTO) 66.7 % (42.0-75.0); RED BLOOD COUNT 4.88 X10^6/uL (4.7-6.0); RED CELL DISTRIBUTION WIDTH 15.8 % (11.6-16.5); WHITE BLOOD COUNT 8.9 X10^3/uL (3.6-10.0)
[2022-12-27 05:48] LABS: ALANINE AMINOTRANSFERASE 12 Units/L (12-78); ALBUMIN 2.5 g/dL (3.4-5.0); ALKALINE PHOSPHATASE 55 Units/L (46-116); ASPARTATE AMINO TRANSFERASE 16 Units/L (15-37); BLOOD UREA NITROGEN 6 mg/dL (7-18); CALCIUM 8.4 mg/dL (8.5-10.1); CARBON DIOXIDE 29.9 mmol/L (21-32); CHLORIDE 100 mmol/L (98-107); COR CA(FOR HYPOALB) 9.6 mg/dL (8.5-10.1); CREATININE 0.67 mg/dL (0.70-1.30); SODIUM 134 mmol/L (136-145); TOTAL PROTEIN 6.7 g/dL (6.4-8.2); eGFR NON BLACK RACES > 60 (>60)
[2022-12-27] MEDS: PROTONIX TAB 40 MG PO SCH (08:16)
[2022-12-27] MEDS: LEVAQUIN PREMIX IV 750 MG 750 MG/150 ML BAG IV SCH (08:17)
[2022-12-27] MEDS: FLOMAX PO SCH (08:17)
--- NOTE | 2022-12-27 08:27 | DR.PROGNOT ---
HOSPITAL PROGRESS NOTE Progress Note for Day of: Progress Note Date: 12/27/22 Chief Complaint Chief Complaint: having moderate abdominal pain . colostomy is not functioning yet but passing some air in the bag . CBC .renal functioning and LFT all normal .. KUB showed dilated loops of SB but there is air in the colon as well .( partial SBO ) Past Medical Family Social History Past Med/Fam/Surg Hx: No changes since H&P Allergies: Allergies cortisone Adverse Reaction (Verified 12/13/22 21:19) Review Of Systems ROS: No change since H&P Vital Signs Vital Signs: Temperature 97.9 F Pulse Rate [Left Brachial] 72 Pulse Rate 88 Respiratory Rate 20 Blood Pressure [Left Arm] 117/70 Blood Pressure 145/83 O2 Sat by Pulse Oximetry 96 Physical Exam Oriented: Normal Ear: Normal Nose: Normal Throat: Normal Cardiovascular: Normal : Normal GI:Auscultation: Decreased GI:Palpation: Other (full abdomen with moderate tenderness more on the lower abdomen .. BS+ ) GI: Tenderness: Diffuse Skin: Decreased Turgur Psychiatric: Normal Mood Description: Calm Speech Pattern: Clear and Appropriate Laboratory and Diagnostics Result Diagrams: 12/27/22 05:19 12/27/22 05:19 Labs: Laboratory WBC 8.9 X10^3/uL (3.6-10.0) 12/27/22 05:19 RBC 4.88 X10^6/uL (4.7-6.0) 12/27/22 05:19 Hgb 12.8 g/dL (13.5-18.0) L 12/27/22 05:19 Hct 38.7 % (42.0-54.0) L 12/27/22 05:19 MCV 79.2 fL (80.0-100.0) L 12/27/22 05:19 MCH 26.3 pg (27.0-34.0) L 12/27/22 05:19 MCHC 33.2 g/dL (33.0-35.0) 12/27/22 05:19 RDW 15.8 % (11.6-16.5) 12/27/22 05:19 Plt Count 267 X10^3/uL (150.0-450.0) 12/27/22 05:19 MPV 7.3 fL (7.4-11.0) L 12/27/22 05:19 Neut % (Auto) 66.7 % (42.0-75.0) 12/27/22 05:19 Lymph % (Auto) 22.7 % (21.0-51.0) 12/27/22 05:19 [place] % (Auto) 8.8 % (0.0-13.0) 12/27/22 05:19 Eos % (Auto) 1.1 % (0.9-2.9) 12/27/22 05:19 Baso % (Auto) 0.7 % (0.2-1.0) 12/27/22 05:19 Neut # (Auto) 5.9 x10^3/uL (2.2-4.8) H 12/27/22 05:19 Lymph # (Auto) 2.0 X10^3/uL (1.3-2.9) 12/27/22 05:19 [place] # (Auto) 0.8 x10^3/uL (0.3-0.8) 12/27/22 05:19 Eos # (Auto) 0.1 x10^3/uL (0.0-0.2) 12/27/22 05:19 Baso # (Auto) 0.1 X10^3/uL (0.0-0.1) 12/27/22 05:19 Absolute Nucleated RBC 0.0 /100WBC 12/27/22 05:19 Sodium 134 mmol/L (136-145) L 12/27/22 05:19 Corrected Sodium TNP 12/27/22 05:19 Potassium 3.5 mmol/L (3.5-5.1) 12/27/22 05:19 Chloride 100 mmol/L (98-107) 12/27/22 05:19 Carbon Dioxide 29.9 mmol/L (21-32) 12/27/22 05:19 BUN 6 mg/dL (7-18) L 12/27/22 05:19 Creatinine 0.67 mg/dL (0.70-1.30) L 12/27/22 05:19 Est GFR (MDRD) Af Amer > 60 (>60) 12/27/22 05:19 Est GFR (MDRD) Non-Af > 60 (>60) 12/27/22 05:19 Glucose 110 mg/dL (65-99) H 12/27/22 05:19 POC Glucose (mg/dL) 87 mg/dL (65-99) 12/24/22 16:16 Calcium 8.4 mg/dL (8.5-10.1) L 12/27/22 05:19 Corrected Calcium 9.6 mg/dL (8.5-10.1) 12/27/22 05:19 Magnesium 2.2 mg/dL (2.0-2.9) 12/26/22 04:42 Total Bilirubin 0.60 mg/dL (0.2-1.0) 12/27/22 05:19 AST 16 Units/L (15-37) 12/27/22 05:19 ALT 12 Units/L (12-78) 12/27/22 05:19 Alkaline Phosphatase 55 Units/L (46-116) 12/27/22 05:19 Total Protein 6.7 g/dL (6.4-8.2) 12/27/22 05:19 Albumin 2.5 g/dL (3.4-5.0) L 12/27/22 05:19 Globulin 4.2 g/dL (2.5-4.5) 12/27/22 05:19 Albumin/Globulin Ratio 0.6 Ratio (1.1-2.1) L 12/27/22 05:19 Lipase 32 Units/L (73-393) L 12/23/22 16:45 Specimen Type Random urine 12/23/22 16:20 Urine Color Yellow (YELLOW) 12/23/22 16:20 Urine Appearance Hazy (CLEAR) 12/23/22 16:20 Urine pH 5.0 (5.0 - 8.0) 12/23/22 16:20 Ur Specific [place] 1.025 (1.000-1.030) 12/23/22 16:20 Urine Protein 3+ (NEGATIVE) 12/23/22 16:20 Urine Glucose (UA) Negative (NEGATIVE) 12/23/22 16:20 Urine Ketones 3+ (NEGATIVE) 12/23/22 16:20 Urine Blood 3+ (NEGATIVE) 12/23/22 16:20 Urine Nitrite Negative (NEGATIVE) 12/23/22 16:20 Urine Bilirubin 1+ (NEGATIVE) 12/23/22 16:20 Urine Urobilinogen 2+ (NORMAL) 12/23/22 16:20 Ur Leukocyte Esterase 3+ (NEGATIVE) 12/23/22 16:20 Urine RBC 10-20 /HPF (0-3) A 12/23/22 16:20 Urine WBC Tntc /HPF (0-5) A 12/23/22 16:20 Ur Squamous Epith Cells Rare /HPF (NEGATIVE) 12/23/22 16:20 Urine Bacteria Trace /HPF (NEGATIVE) 12/23/22 16:20 Urine Mucus Few /HPF (NEGATIVE) 12/23/22 16:20 Ur Culture Indicated? No/not indicated 12/23/22 16:20 Assessment and Plan 1: partial SBO. same NGT , IVF . repeat KUB in am . will consider surgery if no improvement .. 2: abdominal adhesions 3: h/o colon ca , s/p colostomy . 4: BPH . on Flomax daily . Problem Patient Problems: Patient Problems (Updated 12/25/22 @ 11:55 by Georgina Wills) COPD (chronic obstructive pulmonary disease) (Acute) J44.9 Small bowel obstruction (Acute) K56.609 Acute UTI (Acute) N39.0
--- NOTE | 2022-12-27 08:38 | PCM.PROG ---
Progress Note Progress Note for Day of Date of Exam: 12/26/22 Subjective Subjective: Patient seen at bedside, no acute events overnight. He states abdominal pain is slightly better. Patient is being treated for SBO. KUB today continues to show partial SBP vs ileus. He has NGT in place. He is also being treated for UTI. Dr Plata also following and recommended to keep NGT today and repeat KUB in the AM. Labs/imaging reviewed: Hgb 12.1 Plan: continue NGT and NPO status. Continue hydration with D5/NS, anti-emetics and pain control. Continue IV Levaquin. Follow surgery recommendations. Replace electrolytes prn. Monitor AM labs/imaging. Past Medical Family Social History Past Med/Fam/Surg Hx: No changes since H&P Allergies: Allergies cortisone Adverse Reaction (Verified 12/13/22 21:19) Review of Systems ROS: No change since H&P Vital Signs and I&O's Vital Signs: Temperature 97.9 F Pulse Rate [Left Brachial] 72 Pulse Rate 88 Respiratory Rate 20 Blood Pressure [Left Arm] 117/70 Blood Pressure 145/83 O2 Sat by Pulse Oximetry 96 Intake and Output: Intake & Output 12/24/22 12/25/22 12/26/22 12/27/22 22:59 22:59 23:59 23:59 Intake Total 489 / 489 Output Total 100 / 100 Balance 389 / 389 Physical Exam Oriented: Normal Ear: Normal Nose: Normal Throat: Normal Cardiovascular: Normal Auscultation: Bowel Sounds: Decreased Tenderness: Diffuse Skin: Decreased Turgur Musculoskeletal: Left, Shoulder, Back:Lumbar and Tender Psychiatric: Normal Mood Description: Calm Speech Pattern: Clear and Appropriate Laboratory and Diagnostics Result Diagrams: 12/27/22 05:19 12/27/22 05:19 Labs: Laboratory WBC 8.9 X10^3/uL (3.6-10.0) 12/27/22 05:19 RBC 4.88 X10^6/uL (4.7-6.0) 12/27/22 05:19 Hgb 12.8 g/dL (13.5-18.0) L 12/27/22 05:19 Hct 38.7 % (42.0-54.0) L 12/27/22 05:19 MCV 79.2 fL (80.0-100.0) L 12/27/22 05:19 MCH 26.3 pg (27.0-34.0) L 12/27/22 05:19 MCHC 33.2 g/dL (33.0-35.0) 12/27/22 05:19 RDW 15.8 % (11.6-16.5) 12/27/22 05:19 Plt Count 267 X10^3/uL (150.0-450.0) 12/27/22 05:19 MPV 7.3 fL (7.4-11.0) L 12/27/22 05:19 Neut % (Auto) 66.7 % (42.0-75.0) 12/27/22 05:19 Lymph % (Auto) 22.7 % (21.0-51.0) 12/27/22 05:19 [place] % (Auto) 8.8 % (0.0-13.0) 12/27/22 05:19 Eos % (Auto) 1.1 % (0.9-2.9) 12/27/22 05:19 Baso % (Auto) 0.7 % (0.2-1.0) 12/27/22 05:19 Neut # (Auto) 5.9 x10^3/uL (2.2-4.8) H 12/27/22 05:19 Lymph # (Auto) 2.0 X10^3/uL (1.3-2.9) 12/27/22 05:19 [place] # (Auto) 0.8 x10^3/uL (0.3-0.8) 12/27/22 05:19 Eos # (Auto) 0.1 x10^3/uL (0.0-0.2) 12/27/22 05:19 Baso # (Auto) 0.1 X10^3/uL (0.0-0.1) 12/27/22 05:19 Absolute Nucleated RBC 0.0 /100WBC 12/27/22 05:19 Sodium 134 mmol/L (136-145) L 12/27/22 05:19 Corrected Sodium TNP 12/27/22 05:19 Potassium 3.5 mmol/L (3.5-5.1) 12/27/22 05:19 Chloride 100 mmol/L (98-107) 12/27/22 05:19 Carbon Dioxide 29.9 mmol/L (21-32) 12/27/22 05:19 BUN 6 mg/dL (7-18) L 12/27/22 05:19 Creatinine 0.67 mg/dL (0.70-1.30) L 12/27/22 05:19 Est GFR (MDRD) Af Amer > 60 (>60) 12/27/22 05:19 Est GFR (MDRD) Non-Af > 60 (>60) 12/27/22 05:19 Glucose 110 mg/dL (65-99) H 12/27/22 05:19 POC Glucose (mg/dL) 87 mg/dL (65-99) 12/24/22 16:16 Calcium 8.4 mg/dL (8.5-10.1) L 12/27/22 05:19 Corrected Calcium 9.6 mg/dL (8.5-10.1) 12/27/22 05:19 Magnesium 2.2 mg/dL (2.0-2.9) 12/26/22 04:42 Total Bilirubin 0.60 mg/dL (0.2-1.0) 12/27/22 05:19 AST 16 Units/L (15-37) 12/27/22 05:19 ALT 12 Units/L (12-78) 12/27/22 05:19 Alkaline Phosphatase 55 Units/L (46-116) 12/27/22 05:19 Total Protein 6.7 g/dL (6.4-8.2) 12/27/22 05:19 Albumin 2.5 g/dL (3.4-5.0) L 12/27/22 05:19 Globulin 4.2 g/dL (2.5-4.5) 12/27/22 05:19 Albumin/Globulin Ratio 0.6 Ratio (1.1-2.1) L 12/27/22 05:19 Lipase 32 Units/L (73-393) L 12/23/22 16:45 Specimen Type Random urine 12/23/22 16:20 Urine Color Yellow (YELLOW) 12/23/22 16:20 Urine Appearance Hazy (CLEAR) 12/23/22 16:20 Urine pH 5.0 (5.0 - 8.0) 12/23/22 16:20 Ur Specific [place] 1.025 (1.000-1.030) 12/23/22 16:20 Urine Protein 3+ (NEGATIVE) 12/23/22 16:20 Urine Glucose (UA) Negative (NEGATIVE) 12/23/22 16:20 Urine Ketones 3+ (NEGATIVE) 12/23/22 16:20 Urine Blood 3+ (NEGATIVE) 12/23/22 16:20 Urine Nitrite Negative (NEGATIVE) 12/23/22 16:20 Urine Bilirubin 1+ (NEGATIVE) 12/23/22 16:20 Urine Urobilinogen 2+ (NORMAL) 12/23/22 16:20 Ur Leukocyte Esterase 3+ (NEGATIVE) 12/23/22 16:20 Urine RBC 10-20 /HPF (0-3) A 12/23/22 16:20 Urine WBC Tntc /HPF (0-5) A 12/23/22 16:20 Ur Squamous Epith Cells Rare /HPF (NEGATIVE) 12/23/22 16:20 Urine Bacteria Trace /HPF (NEGATIVE) 12/23/22 16:20 Urine Mucus Few /HPF (NEGATIVE) 12/23/22 16:20 Ur Culture Indicated? No/not indicated 12/23/22 16:20 Plan (1) Small bowel obstruction: Status: Acute (2) UTI (urinary tract infection): Status: Acute Qualifiers: Hematuria presence: with hematuria Urinary tract infection type: site unspecified Qualified Code(s): N39.0 - Urinary tract infection, site not specified (3) COPD (chronic obstructive pulmonary disease): Status: Acute (4) Dehydration: Status: Acute
[2022-12-27] MEDS ORDERED: POTASSIUM CHL 40 MEQ/NS 0.45% 500 ML IV PRN (10:00)
[2022-12-27] MEDS ORDERED: MAGNESIUM SULFATE 1 GRAM/100 mL PREMIX 1 G/100 ML BAG IV PRN (10:00)
[2022-12-27] MEDS ORDERED: POTASSIUM CHL 60 MEQ/NS 0.45% 500 ML IV PRN (10:00)
[2022-12-27] MEDS ORDERED: POTASSIUM CHLORIDE LIQ 20 MEQ UDC PO PRN (10:00)
[2022-12-27] MEDS ORDERED: MICRO K EXTEN CAP 10 MEQ PO PRN (10:00)
[2022-12-27] MEDS ORDERED: K-DUR TAB 20 MEQ PO PRN (10:00)
[2022-12-27] MEDS ORDERED: KLOR-CON PO PRN (10:00)
[2022-12-27] MEDS: ELIQUIS PO SCH ×2 (10:41→20:21)
[2022-12-27] MEDS: K-RIDER 10 MEQ/NS 100 ML 10 MEQ/100 ML BAG IV PRN ×2 (10:42→18:03)
--- NOTE | 2022-12-27 11:46 | RAD ---
HISTORYSmall-bowel obstructionSTUDYKUB [id number]/11/2023FINDINGSPers istent dilatation of bowel primarily small intestine, although some colon gas is identified. Stable position of NG tube coiled in the gastric fundus.IMPRESSIONNo abdominal radiographic change. Intestinal gas pattern remains consistent with ileus or partial SBO.Electronically signed by: GIGI LEYVA III (Dec 27, 2022 11:44:59)
[2022-12-28] MEDS: D5 NS 1,000 ML IV 1,000 ML IV SCH ×3 (05:43→20:56)
[2022-12-28 06:14] LABS: BASOPHILS # (AUTO) 0.1 X10^3/uL (0.0-0.1); BASOPHILS % (AUTO) 0.7 % (0.2-1.0); EOSINOPHILS # (AUTO) 0.2 x10^3/uL (0.0-0.2); HEMATOCRIT 36.3 % (42.0-54.0); LYMPHOCYTES # (AUTO) 2.1 X10^3/uL (1.3-2.9); LYMPHOCYTES % (AUTO) 27.1 % (21.0-51.0); MEAN CORPUSCULAR HEMOGLOBIN 26.3 pg (27.0-34.0); MEAN CORPUSCULAR HGB CONC 33.1 g/dL (33.0-35.0); MEAN CORPUSCULAR VOLUME 79.4 fL (80.0-100.0); MONOCYTES # (AUTO) 0.7 x10^3/uL (0.3-0.8); MONOCYTES % (AUTO) 8.7 % (0.0-13.0); NEUTROPHILS # (AUTO) 4.8 x10^3/uL (2.2-4.8); NEUTROPHILS % (AUTO) 61.5 % (42.0-75.0); RED BLOOD COUNT 4.58 X10^6/uL (4.7-6.0); RED CELL DISTRIBUTION WIDTH 15.7 % (11.6-16.5); WHITE BLOOD COUNT 7.9 X10^3/uL (3.6-10.0)
[2022-12-28 06:22] LABS: ALANINE AMINOTRANSFERASE 11 Units/L (12-78); ALBUMIN 2.5 g/dL (3.4-5.0); ALKALINE PHOSPHATASE 52 Units/L (46-116); ASPARTATE AMINO TRANSFERASE 13 Units/L (15-37); BLOOD UREA NITROGEN 6 mg/dL (7-18); CALCIUM 8.3 mg/dL (8.5-10.1); CARBON DIOXIDE 28.8 mmol/L (21-32); CHLORIDE 102 mmol/L (98-107); COR CA(FOR HYPOALB) 9.5 mg/dL (8.5-10.1); CREATININE 0.68 mg/dL (0.70-1.30); SODIUM 136 mmol/L (136-145); TOTAL PROTEIN 6.5 g/dL (6.4-8.2); eGFR NON BLACK RACES > 60 (>60)
[2022-12-28] MEDS: FLOMAX PO SCH (09:05)
[2022-12-28] MEDS: PROTONIX TAB 40 MG PO SCH (09:05)
[2022-12-28] MEDS: ELIQUIS PO SCH ×2 (09:05→20:57)
[2022-12-28] MEDS: K-DUR TAB 20 MEQ PO PRN (09:05)
[2022-12-28] MEDS: LEVAQUIN PREMIX IV 750 MG 750 MG/150 ML BAG IV SCH (09:05)
--- NOTE | 2022-12-28 09:12 | DR.PROGNOT ---
HOSPITAL PROGRESS NOTE Progress Note for Day of: Progress Note Date: 12/28/22 Chief Complaint Chief Complaint: colostomy is functioning well today wit large amount of stool in the bag .. no abdominal pain . Past Medical Family Social History Past Med/Fam/Surg Hx: No changes since H&P Allergies: Allergies cortisone Adverse Reaction (Verified 12/13/22 21:19) Review Of Systems ROS: No change since H&P Vital Signs Vital Signs: Temperature 98.6 F Pulse Rate [Left Brachial] 73 Pulse Rate 88 Respiratory Rate 20 Blood Pressure [Left Arm] 107/55 Blood Pressure 145/83 O2 Sat by Pulse Oximetry 97 Physical Exam Oriented: Normal Ear: Normal Nose: Normal Throat: Normal Cardiovascular: Normal : Normal GI:Auscultation: Normal (soft, flat with minimal tenderness ..) GI: Tenderness: Diffuse Skin: Decreased Turgur Musculoskeletal: Left, Shoulder, Back:Lumbar and Tender Psychiatric: Normal Mood Description: Calm Speech Pattern: Clear and Appropriate Laboratory and Diagnostics Result Diagrams: 12/28/22 05:55 12/28/22 05:55 Labs: Laboratory WBC 7.9 X10^3/uL (3.6-10.0) 12/28/22 05:55 RBC 4.58 X10^6/uL (4.7-6.0) L 12/28/22 05:55 Hgb 12.0 g/dL (13.5-18.0) L 12/28/22 05:55 Hct 36.3 % (42.0-54.0) L 12/28/22 05:55 MCV 79.4 fL (80.0-100.0) L 12/28/22 05:55 MCH 26.3 pg (27.0-34.0) L 12/28/22 05:55 MCHC 33.1 g/dL (33.0-35.0) 12/28/22 05:55 RDW 15.7 % (11.6-16.5) 12/28/22 05:55 Plt Count 251 X10^3/uL (150.0-450.0) 12/28/22 05:55 MPV 7.0 fL (7.4-11.0) L 12/28/22 05:55 Neut % (Auto) 61.5 % (42.0-75.0) 12/28/22 05:55 Lymph % (Auto) 27.1 % (21.0-51.0) 12/28/22 05:55 [place] % (Auto) 8.7 % (0.0-13.0) 12/28/22 05:55 Eos % (Auto) 2.0 % (0.9-2.9) 12/28/22 05:55 Baso % (Auto) 0.7 % (0.2-1.0) 12/28/22 05:55 Neut # (Auto) 4.8 x10^3/uL (2.2-4.8) 12/28/22 05:55 Lymph # (Auto) 2.1 X10^3/uL (1.3-2.9) 12/28/22 05:55 [place] # (Auto) 0.7 x10^3/uL (0.3-0.8) 12/28/22 05:55 Eos # (Auto) 0.2 x10^3/uL (0.0-0.2) 12/28/22 05:55 Baso # (Auto) 0.1 X10^3/uL (0.0-0.1) 12/28/22 05:55 Absolute Nucleated RBC 0.0 /100WBC 12/28/22 05:55 Sodium 136 mmol/L (136-145) 12/28/22 05:55 Corrected Sodium TNP 12/28/22 05:55 Potassium 3.6 mmol/L (3.5-5.1) 12/28/22 05:55 Chloride 102 mmol/L (98-107) 12/28/22 05:55 Carbon Dioxide 28.8 mmol/L (21-32) 12/28/22 05:55 BUN 6 mg/dL (7-18) L 12/28/22 05:55 Creatinine 0.68 mg/dL (0.70-1.30) L 12/28/22 05:55 Est GFR (MDRD) Af Amer > 60 (>60) 12/28/22 05:55 Est GFR (MDRD) Non-Af > 60 (>60) 12/28/22 05:55 Glucose 104 mg/dL (65-99) H 12/28/22 05:55 POC Glucose (mg/dL) 87 mg/dL (65-99) 12/24/22 16:16 Calcium 8.3 mg/dL (8.5-10.1) L 12/28/22 05:55 Corrected Calcium 9.5 mg/dL (8.5-10.1) 12/28/22 05:55 Magnesium 2.0 mg/dL (2.0-2.9) 12/27/22 05:19 Total Bilirubin 0.40 mg/dL (0.2-1.0) 12/28/22 05:55 AST 13 Units/L (15-37) L 12/28/22 05:55 ALT 11 Units/L (12-78) L 12/28/22 05:55 Alkaline Phosphatase 52 Units/L (46-116) 12/28/22 05:55 Total Protein 6.5 g/dL (6.4-8.2) 12/28/22 05:55 Albumin 2.5 g/dL (3.4-5.0) L 12/28/22 05:55 Globulin 4.0 g/dL (2.5-4.5) 12/28/22 05:55 Albumin/Globulin Ratio 0.6 Ratio (1.1-2.1) L 12/28/22 05:55 Lipase 32 Units/L (73-393) L 12/23/22 16:45 Specimen Type Random urine 12/23/22 16:20 Urine Color Yellow (YELLOW) 12/23/22 16:20 Urine Appearance Hazy (CLEAR) 12/23/22 16:20 Urine pH 5.0 (5.0 - 8.0) 12/23/22 16:20 Ur Specific [place] 1.025 (1.000-1.030) 12/23/22 16:20 Urine Protein 3+ (NEGATIVE) 12/23/22 16:20 Urine Glucose (UA) Negative (NEGATIVE) 12/23/22 16:20 Urine Ketones 3+ (NEGATIVE) 12/23/22 16:20 Urine Blood 3+ (NEGATIVE) 12/23/22 16:20 Urine Nitrite Negative (NEGATIVE) 12/23/22 16:20 Urine Bilirubin 1+ (NEGATIVE) 12/23/22 16:20 Urine Urobilinogen 2+ (NORMAL) 12/23/22 16:20 Ur Leukocyte Esterase 3+ (NEGATIVE) 12/23/22 16:20 Urine RBC 10-20 /HPF (0-3) A 12/23/22 16:20 Urine WBC Tntc /HPF (0-5) A 12/23/22 16:20 Ur Squamous Epith Cells Rare /HPF (NEGATIVE) 12/23/22 16:20 Urine Bacteria Trace /HPF (NEGATIVE) 12/23/22 16:20 Urine Mucus Few /HPF (NEGATIVE) 12/23/22 16:20 Ur Culture Indicated? No/not indicated 12/23/22 16:20 Assessment and Plan 1: subsiding partial SBO. rectal ca s/p resection . abdominal adhesions to advance diet , IVF . repeat KUB in am .maybe discharge in am . f/u in 10 days 2: abdominal adhesions 3: h/o colon ca , s/p colostomy . 4: BPH . on Flomax daily . Problem Patient Problems: Patient Problems (Updated 12/25/22 @ 11:55 by Georgina Wills) COPD (chronic obstructive pulmonary disease) (Acute) J44.9 Small bowel obstruction (Acute) K56.609 Acute UTI (Acute) N39.0
--- NOTE | 2022-12-28 16:11 | RAD ---
HISTORYSBO Relevant Clinical [id number]/13/2023 .br.br.br.br radiopacities. Patient is status post cholecystectomy. There are again seen diffuse dilated small-bowel loops centrally with decrease air in the colon suspicious for small-bowel obstruction. There is decrease air in the rectum. The nasogastric tube has been removed.IMPRESSIONPersistent central dilated small-bowel loops. Nasogastric tube has been removed. There is decrease air in the colon, small-bowel obstruction is not excluded.Electronically signed by: Adelina Puente (Dec 28, 2022 16:10:23)
[2022-12-29] MEDS: D5 NS 1,000 ML IV 1,000 ML IV SCH ×2 (04:57→12:15)
[2022-12-29 06:26] LABS: BASOPHILS # (AUTO) 0.1 X10^3/uL (0.0-0.1); BASOPHILS % (AUTO) 0.8 % (0.2-1.0); EOSINOPHILS # (AUTO) 0.2 x10^3/uL (0.0-0.2); EOSINOPHILS % (AUTO) 1.9 % (0.9-2.9); HEMOGLOBIN 11.5 g/dL (13.5-18.0); LYMPHOCYTES # (AUTO) 2.4 X10^3/uL (1.3-2.9); LYMPHOCYTES % (AUTO) 27.5 % (21.0-51.0); MEAN CORPUSCULAR HEMOGLOBIN 26.1 pg (27.0-34.0); MEAN CORPUSCULAR HGB CONC 32.9 g/dL (33.0-35.0); MEAN CORPUSCULAR VOLUME 79.3 fL (80.0-100.0); MEAN PLATELET VOLUME 7.2 fL (7.4-11.0); MONOCYTES # (AUTO) 0.8 x10^3/uL (0.3-0.8); MONOCYTES % (AUTO) 9.8 % (0.0-13.0); NEUTROPHILS # (AUTO) 5.2 x10^3/uL (2.2-4.8); RED BLOOD COUNT 4.42 X10^6/uL (4.7-6.0); RED CELL DISTRIBUTION WIDTH 15.7 % (11.6-16.5); WHITE BLOOD COUNT 8.7 X10^3/uL (3.6-10.0)
[2022-12-29 06:40] LABS: ALANINE AMINOTRANSFERASE 13 Units/L (12-78); ALBUMIN 2.3 g/dL (3.4-5.0); ALKALINE PHOSPHATASE 49 Units/L (46-116); ASPARTATE AMINO TRANSFERASE 15 Units/L (15-37); BLOOD UREA NITROGEN 6 mg/dL (7-18); CARBON DIOXIDE 28.2 mmol/L (21-32); CHLORIDE 103 mmol/L (98-107); COR CA(FOR HYPOALB) 9.4 mg/dL (8.5-10.1); CREATININE 0.71 mg/dL (0.70-1.30); SODIUM 139 mmol/L (136-145); TOTAL PROTEIN 6.1 g/dL (6.4-8.2); eGFR NON BLACK RACES > 60 (>60)
[2022-12-29] MEDS: FLOMAX PO SCH (09:40)
[2022-12-29] MEDS: LEVAQUIN PREMIX IV 750 MG 750 MG/150 ML BAG IV SCH (09:40)
[2022-12-29] MEDS: ELIQUIS PO SCH (09:40)
[2022-12-29] MEDS: PROTONIX TAB 40 MG PO SCH (09:40)
[2022-12-29] MEDS: K-DUR TAB 20 MEQ PO PRN (09:40)
--- NOTE | 2022-12-29 11:00 | RAD ---
PROCEDURE: Abdomen X-ray 1 View .HISTORY: History of small-bowel obstruction and rectal neoplasm.TECHNIQUE: AP supine abdomen view .COMPARISON: 12/28/2022.TECHNICAL QUALITY: Satisfactory .FINDINGS:Unchanged dilated small bowel loops suspicious for partial small bowel obstruction. Mild gas and feces in the colon without distention.No organomegaly.No abnormal calcifications.Surgical clips right upper quadrant.No acute bony abnormality.IMPRESSION:Unchanged bowel-gas pattern suspicious for partial small-bowel obstruction.Electronically signed by: Jaylan Yin (Dec 29, 2022 10:58:58)
[2022-12-29 12:03] VITALS: BP 140/68
== END 2022-12-29 12:35 | disposition home health service (06) | DRG 389 ==
LOC: ER 15:02 → MED/SURG 19:17
PROVIDERS: ADMIT Internal Medicine; ATTEND Internal Medicine
DX: E86.0 Dehydration; N40.0 Benign prostatic hyperplasia without lower urinary tract symptoms; Z85.038 Personal history of other malignant neoplasm of large intestine; N39.0 Urinary tract infection, site not specified; M19.90 Unspecified osteoarthritis, unspecified site; K56.690 Other partial intestinal obstruction; J44.9 Chronic obstructive pulmonary disease, unspecified; Z79.01 Long term (current) use of anticoagulants; K66.0 Peritoneal adhesions (postprocedural) (postinfection); Z93.3 Colostomy status

== ENCOUNTER 2024-03-13 09:51 | Observation (INO) ==
[2024-03-13 13:18] LABS: ABG BASE EXCESS 5.6 mmol/L (-2.0-2.0)
[2024-03-13 13:21] LABS: ABG ALLEN TEST POS; ABG HCO3 31.1 mmol/L (22-26)
[2024-03-13] MEDS: DUONEB 0.5 MG/3 MG (3 mL) NEB SCH (13:26)
[2024-03-13 14:21] LABS: BASOPHILS # (AUTO) 0.1 X10^3/uL (0.0-0.1); BASOPHILS % (AUTO) 1.1 % (0.2-1.0); EOSINOPHILS # (AUTO) 0.1 x10^3/uL (0.0-0.2); EOSINOPHILS % (AUTO) 1.5 % (0.9-2.9); HEMATOCRIT 47.4 % (42.0-54.0); HEMOGLOBIN 15.6 g/dL (13.5-18.0); LYMPHOCYTES # (AUTO) 2.2 X10^3/uL (1.3-2.9); LYMPHOCYTES % (AUTO) 24.1 % (21.0-51.0); MEAN CORPUSCULAR HEMOGLOBIN 27.5 pg (27.0-34.0); MEAN CORPUSCULAR HGB CONC 32.9 g/dL (33.0-35.0); MEAN CORPUSCULAR VOLUME 83.6 fL (80.0-100.0); MONOCYTES # (AUTO) 0.7 x10^3/uL (0.3-0.8); MONOCYTES % (AUTO) 7.2 % (0.0-13.0); NEUTROPHILS % (AUTO) 66.1 % (42.0-75.0); PLATELET COUNT 268 X10^3/uL (150.0-450.0); RED BLOOD COUNT 5.66 X10^6/uL (4.7-6.0); RED CELL DISTRIBUTION WIDTH 15.4 % (11.6-16.5); WHITE BLOOD COUNT 9.1 X10^3/uL (3.6-10.0)
[2024-03-13] MEDS: ROBITUSSIN DM PO SCH (14:31)
[2024-03-13] MEDS: SOLU-Medrol 40 MG VIAL IVP SCH (14:31)
[2024-03-13] MEDS ORDERED: NS 1,000 ML IV 1,000 ML ONE (14:34)
[2024-03-13] MEDS: NS 1,000 ML IV 1,000 ML IV SCH (14:44)
[2024-03-13 15:02] LABS: ALANINE AMINOTRANSFERASE 21 Units/L (12-78); ALBUMIN 3.2 g/dL (3.4-5.0); ALKALINE PHOSPHATASE 69 Units/L (46-116); ASPARTATE AMINO TRANSFERASE 16 Units/L (15-37); BLOOD UREA NITROGEN 12 mg/dL (7-18); CALCIUM 8.7 mg/dL (8.5-10.1); CHLORIDE 100 mmol/L (98-107); COR CA(FOR HYPOALB) 9.3 mg/dL (8.5-10.1); COR NA(FOR HYPERGLY) 138 mmol/L (136-145); GLUCOSE 136 mg/dL (65-99); SODIUM 137 mmol/L (136-145); TOTAL PROTEIN 7.2 g/dL (6.4-8.2); eGFR NON BLACK RACES > 60 (>60)
[2024-03-13 15:04] VITALS: BMI 33.3
[2024-03-13] MEDS: ROCEPHIN VIAL 1 GRAM 1 G in NS 100 ML IV 100 ML IV SCH (15:12)
--- NOTE | 2024-03-13 17:26 | DR.H&P ---
H&P History & Physical for Day of: H&P Date: 03/13/24 Chief Complaint Chief Complaint: CCC, SOB History of Present Illness History of Present Illness: PT IS 74 WM, DIRECT ADMIT WITH COPD EXACERBATION. PT WAS SEEN IN OFFICE LAST WEEK AND HAD NEGATIVE FLU AND COVID SWAB. STARTED ON PO LEVAQUIN AND HAD ROCEPHIN AND KENALOG INJECTIONS AT THAT TIME. PT REPORT USING HIS NEBULIZER WITHOUT IMPROVEMENT IN SOB. PT ADMITTED FOR TREATMENT AND EVALUATION OF ACUTE ILLNESS. Past Medical History Past Medical History: Arthritis, CHF and COPD Additional Medical History: COLON CANCER, DVT Past Surgical History Surgical History: Bowel Resection, Cholecystectomy, Ortho Surgery and Tonsillectomy Family History Family Medical History: NE and Heart Failure Social History Does patient currently use any type of tobacco product: No Have you used tobacco products in the last 12 months: Yes Type of Tobacco Use: Cigarettes How many years tobacco product used: 60 Does any household member use tobacco: No Alcohol Use: None Drug Use: None Medications Home Medications: Home Medications Medication Instructions Recorded Confirmed Type apixaban 5 mg tablet (Eliquis) 5 mg PO BID 12/13/22 03/13/24 History gabapentin 300 mg capsule 300 mg PO BID 12/13/22 03/13/24 History hydrocodone 10 mg-acetaminophen 1 tab PO QID 12/13/22 03/13/24 History 325 mg tablet tamsulosin 0.4 mg capsule 0.4 mg PO HS 12/13/22 03/13/24 History fluticasone fur. 100 mcg-umeclid 1 ea inhalation QDAY 03/13/24 03/13/24 History 62.5 mcg-vilant 25 mcg inhalat.powder (Trelegy Ellipta) ipratropium 20 mcg-albuterol 100 1 puff inhalation QID 03/13/24 03/13/24 History mcg/actuation mist for inhalation (Combivent Respimat) Allergies Allergies Allergy/AdvReac Type Severity Reaction Status Date / Time cortisone AdvReac Verified 01/11/23 09:31 Labs 03/13/24 13:45 03/13/24 14:45 Labs: 03/13/24 13:24 Sputum - Expectorated Sputum - Final Laboratory WBC 9.1 X10^3/uL (3.6-10.0) 03/13/24 13:45 RBC 5.66 X10^6/uL (4.7-6.0) 03/13/24 13:45 Hgb 15.6 g/dL (13.5-18.0) 03/13/24 13:45 Hct 47.4 % (42.0-54.0) 03/13/24 13:45 MCV 83.6 fL (80.0-100.0) 03/13/24 13:45 MCH 27.5 pg (27.0-34.0) 03/13/24 13:45 MCHC 32.9 g/dL (33.0-35.0) L 03/13/24 13:45 RDW 15.4 % (11.6-16.5) 03/13/24 13:45 Plt Count 268 X10^3/uL (150.0-450.0) 03/13/24 13:45 MPV 8.0 fL (7.4-11.0) 03/13/24 13:45 Neut % (Auto) 66.1 % (42.0-75.0) 03/13/24 13:45 Lymph % (Auto) 24.1 % (21.0-51.0) 03/13/24 13:45 [place] % (Auto) 7.2 % (0.0-13.0) 03/13/24 13:45 Eos % (Auto) 1.5 % (0.9-2.9) 03/13/24 13:45 Baso % (Auto) 1.1 % (0.2-1.0) H 03/13/24 13:45 Neut # (Auto) 6.0 x10^3/uL (2.2-4.8) H 03/13/24 13:45 Lymph # (Auto) 2.2 X10^3/uL (1.3-2.9) 03/13/24 13:45 [place] # (Auto) 0.7 x10^3/uL (0.3-0.8) 03/13/24 13:45 Eos # (Auto) 0.1 x10^3/uL (0.0-0.2) 03/13/24 13:45 Baso # (Auto) 0.1 X10^3/uL (0.0-0.1) 03/13/24 13:45 Absolute Nucleated RBC 0.0 /100WBC 03/13/24 13:45 D-Dimer 0.64 ug/ml (0.0-0.57) H 03/13/24 13:45 Sample Site Rrad 03/13/24 13:12 ABG pH 7.420 (7.35-7.45) 03/13/24 13:12 ABG pCO2 48.0 mmHg (35.0-45.0) H 03/13/24 13:12 ABG pO2 48.0 mmHg (80.0-100.0) L* 03/13/24 13:12 ABG HCO3 31.1 mmol/L (22-26) H* 03/13/24 13:12 ABG O2 Saturation 84.0 % (90-100) L* 03/13/24 13:12 ABG Base Excess 5.6 mmol/L (-2.0-2.0) H 03/13/24 13:12 Kris Test Pos 03/13/24 13:12 A-a Gradient 42.0 mmHg 03/13/24 13:12 FiO2 21.0 03/13/24 13:12 Blood Gas Comments Pt halima well elj 03/13/24 13:12 Sodium 137 mmol/L (136-145) 03/13/24 14:45 Corrected Sodium 138 mmol/L (136-145) 03/13/24 14:45 Potassium 4.0 mmol/L (3.5-5.1) 03/13/24 14:45 Chloride 100 mmol/L (98-107) 03/13/24 14:45 Carbon Dioxide 32.0 mmol/L (21-32) 03/13/24 14:45 BUN 12 mg/dL (7-18) 03/13/24 14:45 Creatinine 1.00 mg/dL (0.70-1.30) 03/13/24 14:45 Est GFR (MDRD) Af Amer > 60 (>60) 03/13/24 14:45 Est GFR (MDRD) Non-Af > 60 (>60) 03/13/24 14:45 Glucose 136 mg/dL (65-99) H 03/13/24 14:45 Calcium 8.7 mg/dL (8.5-10.1) 03/13/24 14:45 Corrected Calcium 9.3 mg/dL (8.5-10.1) 03/13/24 14:45 Total Bilirubin 0.40 mg/dL (0.2-1.0) 03/13/24 14:45 AST 16 Units/L (15-37) 03/13/24 14:45 ALT 21 Units/L (12-78) 03/13/24 14:45 Alkaline Phosphatase 69 Units/L (46-116) 03/13/24 14:45 B-Natriuretic Peptide 21.6 pg/mL (0-79) 03/13/24 14:45 Total Protein 7.2 g/dL (6.4-8.2) 03/13/24 14:45 Albumin 3.2 g/dL (3.4-5.0) L 03/13/24 14:45 Globulin 4.0 g/dL (2.5-4.5) 03/13/24 14:45 Albumin/Globulin Ratio 0.8 Ratio (1.1-2.1) L 03/13/24 14:45 Review of Systems Constitutional: Weakness and Malaise Eyes: No Symptoms Reported ENT: Nose Discharge Respiratory: No Symptoms Reported Cardiovascular: Palpitations Gastrointestinal: Nausea Genitourinary: No Symptoms Reported Musculoskeletal: Back Pain Skin: No Symptoms Reported Neurological: No Symptoms Reported Physical Exam Vital Signs: Vital Signs Temperature 98.2 F Temperature 98.2 F Pulse Rate 81 Pulse Rate 90 Pulse Rate 91 Pulse Rate 92 Pulse Rate 92 Pulse Rate 90 Pulse Rate 89 Pulse Rate 86 Pulse Rate 65 Pulse Rate 82 Pulse Rate 75 Pulse Rate 76 Pulse Rate 65 Pulse Rate 80 Pulse Rate 80 Respiratory Rate 31 Respiratory Rate 24 Respiratory Rate 33 Respiratory Rate 29 Respiratory Rate 29 Respiratory Rate 25 Respiratory Rate 20 Respiratory Rate 27 Respiratory Rate 18 Respiratory Rate 35 Respiratory Rate 30 Respiratory Rate 36 Respiratory Rate 27 Respiratory Rate 24 Blood Pressure 158/69 Blood Pressure 142/70 Blood Pressure 126/56 Blood Pressure 125/60 Blood Pressure 125/60 Blood Pressure 120/65 Blood Pressure 160/77 O2 Sat by Pulse Oximetry 94 O2 Sat by Pulse Oximetry 93 O2 Sat by Pulse Oximetry 94 O2 Sat by Pulse Oximetry 93 O2 Sat by Pulse Oximetry 92 O2 Sat by Pulse Oximetry 95 O2 Sat by Pulse Oximetry 94 O2 Sat by Pulse Oximetry 93 O2 Sat by Pulse Oximetry 88 O2 Sat by Pulse Oximetry 94 O2 Sat by Pulse Oximetry 100 O2 Sat by Pulse Oximetry 98 O2 Sat by Pulse Oximetry 88 O2 Sat by Pulse Oximetry 90 Oriented: Normal Eyes: Normal Ear: Normal Nose: Injected Respiratory: Diminished Throughout Cardiovascular: Tachycardia : Normal Auscultation: Bowel Sounds: Normal Palpation: Normal Tenderness: Normal Skin: Decreased Turgur Psychiatric: Anxiety Mood Description: Anxious Speech Pattern: Clear and Appropriate Assessment/Plan (1) COPD exacerbation: Narrative Support Text: ADMIT, IV HYDRATION RESP THERAPY, CXR ON ADMISSION ABG ON ADMISSION IV ABTX, SUPPLEMENTAL O2 VERIFY HOME MEDICATIONS Status: Acute (2) Acute respiratory distress: Status: Acute (3) History of deep vein thrombosis: Status: Acute (4) Colostomy in place: Status: None (5) Rectal cancer: Status: Chronic
--- NOTE | 2024-03-13 18:53 | RAD ---
EXAM: CHEST, 1 VIEW HISTORY: COPD and shortness of breath COMPARISON: November 21, 2023 TECHNIQUE: 1 frontal view of the chest FINDINGS: There is a central venous port noted with tip overlying superior vena cava. There are patchy airspac e opacities in both lower lobes. Chronic elevation of the right hemidiaphragm. IMPRESSION: Moderate severity bibasilar pneumonia THIS IS AN ELECTRONICALLY VERIFIED FINAL REPORT 03/13/2024 6:49 PM - Electronically signed by Umang Mckenzie MD
[2024-03-13 19:39] LABS: BILIRUBIN,URINE NEGATIVE (NEGATIVE); BLOOD/HEMOGLOBIN,URINE NEGATIVE (NEGATIVE); GLUCOSE, URINE NEGATIVE (NEGATIVE); KETONES,URINE NEGATIVE (NEGATIVE); LEUKOCYTE ESTERASE ,URINE NEGATIVE (NEGATIVE); NITRITES,URINE NEGATIVE (NEGATIVE); PROTEIN,URINE 2+ (NEGATIVE); UROBILINOGEN,URINE NORMAL (NORMAL)
[2024-03-13 19:50] LABS: APPEARANCE,URINE CLEAR (CLEAR); BACTERIA,URINE NEGATIVE /HPF (NEGATIVE); COLOR,URINE PALE YELLOW (YELLOW); RBC,URINE 0-2 /HPF (0-3); SQUAMOUS EPITHELIAL CELL,UR RARE /HPF (NEGATIVE)
[2024-03-13] MEDS: FLOMAX PO SCH (20:25)
[2024-03-13] MEDS: NEURONTIN CAP 300 MG PO SCH (20:25)
[2024-03-13] MEDS: ELIQUIS PO SCH (20:25)
[2024-03-13] MEDS: NORCO 10/325 TAB PO SCH (20:26)
[2024-03-13] MEDS: PULMICORT NEB TX 0.5 MG NEB SCH (22:07)
[2024-03-14 04:49] LABS: BASOPHILS % (AUTO) 0.4 % (0.2-1.0); HEMATOCRIT 46.1 % (42.0-54.0); HEMOGLOBIN 15.2 g/dL (13.5-18.0); LYMPHOCYTES # (AUTO) 0.6 X10^3/uL (1.3-2.9); LYMPHOCYTES % (AUTO) 5.9 % (21.0-51.0); MEAN CORPUSCULAR HEMOGLOBIN 27.6 pg (27.0-34.0); MEAN CORPUSCULAR HGB CONC 32.9 g/dL (33.0-35.0); MEAN CORPUSCULAR VOLUME 83.9 fL (80.0-100.0); MEAN PLATELET VOLUME 7.7 fL (7.4-11.0); MONOCYTES # (AUTO) 0.1 x10^3/uL (0.3-0.8); MONOCYTES % (AUTO) 1.4 % (0.0-13.0); NEUTROPHILS # (AUTO) 9.6 x10^3/uL (2.2-4.8); NEUTROPHILS % (AUTO) 92.3 % (42.0-75.0); PLATELET COUNT 241 X10^3/uL (150.0-450.0); RED CELL DISTRIBUTION WIDTH 15.3 % (11.6-16.5); WHITE BLOOD COUNT 10.4 X10^3/uL (3.6-10.0)
[2024-03-14 05:02] LABS: ALANINE AMINOTRANSFERASE 20 Units/L (12-78); ALKALINE PHOSPHATASE 63 Units/L (46-116); ASPARTATE AMINO TRANSFERASE 12 Units/L (15-37); BLOOD UREA NITROGEN 13 mg/dL (7-18); CALCIUM 8.9 mg/dL (8.5-10.1); CARBON DIOXIDE 31.9 mmol/L (21-32); CHLORIDE 104 mmol/L (98-107); COR CA(FOR HYPOALB) 9.7 mg/dL (8.5-10.1); COR NA(FOR HYPERGLY) 142 mmol/L (136-145); CREATININE 0.96 mg/dL (0.70-1.30); GLUCOSE 161 mg/dL (65-99); POTASSIUM 4.7 mmol/L (3.5-5.1); SODIUM 141 mmol/L (136-145); TOTAL PROTEIN 7.1 g/dL (6.4-8.2); eGFR NON BLACK RACES > 60 (>60)
[2024-03-14 05:37] LABS: PLATELET MORPHOLOGY COMMENT NORMAL (NORMAL)
[2024-03-14] MEDS: DUONEB 0.5 MG/3 MG (3 mL) NEB ONE (07:35)
[2024-03-14] MEDS: ROBITUSSIN DM PO PRN (08:52)
[2024-03-14] MEDS: PROTONIX INJ 40 MG VIAL IVP SCH (08:52)
[2024-03-14] MEDS: MERREM VIAL 1 G in NS 100 ML IV 100 ML IV SCH (13:59)
[2024-03-15 05:35] LABS: BASOPHILS # (AUTO) 0.2 X10^3/uL (0.0-0.1); BASOPHILS % (AUTO) 1.5 % (0.2-1.0); EOSINOPHILS % (AUTO) 0.2 % (0.9-2.9); HEMATOCRIT 44.5 % (42.0-54.0); HEMOGLOBIN 14.3 g/dL (13.5-18.0); LYMPHOCYTES # (AUTO) 0.7 X10^3/uL (1.3-2.9); LYMPHOCYTES % (AUTO) 4.5 % (21.0-51.0); MEAN CORPUSCULAR HGB CONC 32.2 g/dL (33.0-35.0); MEAN CORPUSCULAR VOLUME 83.7 fL (80.0-100.0); MEAN PLATELET VOLUME 7.9 fL (7.4-11.0); MONOCYTES # (AUTO) 0.2 x10^3/uL (0.3-0.8); MONOCYTES % (AUTO) 1.2 % (0.0-13.0); NEUTROPHILS % (AUTO) 92.6 % (42.0-75.0); PLATELET COUNT 238 X10^3/uL (150.0-450.0); RED BLOOD COUNT 5.32 X10^6/uL (4.7-6.0); RED CELL DISTRIBUTION WIDTH 15.4 % (11.6-16.5); WHITE BLOOD COUNT 15.2 X10^3/uL (3.6-10.0)
[2024-03-15 05:45] LABS: ALANINE AMINOTRANSFERASE 18 Units/L (12-78); ALBUMIN 2.9 g/dL (3.4-5.0); ALKALINE PHOSPHATASE 58 Units/L (46-116); ASPARTATE AMINO TRANSFERASE 13 Units/L (15-37); BLOOD UREA NITROGEN 13 mg/dL (7-18); CALCIUM 8.7 mg/dL (8.5-10.1); CARBON DIOXIDE 31.5 mmol/L (21-32); CHLORIDE 106 mmol/L (98-107); COR CA(FOR HYPOALB) 9.6 mg/dL (8.5-10.1); COR NA(FOR HYPERGLY) 142 mmol/L (136-145); GLUCOSE 131 mg/dL (65-99); POTASSIUM 4.9 mmol/L (3.5-5.1); SODIUM 141 mmol/L (136-145); TOTAL PROTEIN 6.7 g/dL (6.4-8.2); eGFR NON BLACK RACES > 60 (>60)
[2024-03-15 06:01] LABS: BAND NEUTROPHILS % 1 % (0-10); PLATELET MORPHOLOGY COMMENT NORMAL (NORMAL)
--- NOTE | 2024-03-15 09:41 | RAD ---
EXAM:CHEST, 1 VIEWHISTORY:PNEUMONIA, COPD;COMPARISON:03/13/2024FINDINGS:The cardiomediastinal silhouette is stable. Right-sided chest port well-positioned.Similar bibasilar opacities. No pneumothorax or effusion.No acute osseous abnormality. Reverse left shoulder arthroplasty hardware.IMPRESSION:Similar bibasilar opacities.THIS IS AN ELECTRONICALLY VERIFIED FINAL REPORT03/15/2024 9:37 AM - Electronically signed by Gagandeep Bell MD
[2024-03-15] MEDS: DIFLUCAN 200 MG IV PREMIX* 200 MG/100 ML BAG IV SCH (14:43)
[2024-03-16 05:07] LABS: BASOPHILS % (AUTO) 0.3 % (0.2-1.0); EOSINOPHILS % (AUTO) 0.1 % (0.9-2.9); HEMATOCRIT 45.5 % (42.0-54.0); HEMOGLOBIN 14.9 g/dL (13.5-18.0); LYMPHOCYTES # (AUTO) 0.6 X10^3/uL (1.3-2.9); LYMPHOCYTES % (AUTO) 4.7 % (21.0-51.0); MEAN CORPUSCULAR HEMOGLOBIN 27.4 pg (27.0-34.0); MEAN CORPUSCULAR HGB CONC 32.7 g/dL (33.0-35.0); MEAN CORPUSCULAR VOLUME 83.8 fL (80.0-100.0); MONOCYTES # (AUTO) 0.3 x10^3/uL (0.3-0.8); MONOCYTES % (AUTO) 2.2 % (0.0-13.0); NEUTROPHILS # (AUTO) 12.5 x10^3/uL (2.2-4.8); NEUTROPHILS % (AUTO) 92.7 % (42.0-75.0); PLATELET COUNT 226 X10^3/uL (150.0-450.0); RED BLOOD COUNT 5.43 X10^6/uL (4.7-6.0); RED CELL DISTRIBUTION WIDTH 15.9 % (11.6-16.5); WHITE BLOOD COUNT 13.4 X10^3/uL (3.6-10.0)
[2024-03-16 05:23] LABS: ALANINE AMINOTRANSFERASE 50 Units/L (12-78); ALBUMIN 2.9 g/dL (3.4-5.0); ALKALINE PHOSPHATASE 53 Units/L (46-116); ASPARTATE AMINO TRANSFERASE 34 Units/L (15-37); BLOOD UREA NITROGEN 16 mg/dL (7-18); CALCIUM 8.8 mg/dL (8.5-10.1); CARBON DIOXIDE 32.6 mmol/L (21-32); CHLORIDE 105 mmol/L (98-107); COR CA(FOR HYPOALB) 9.7 mg/dL (8.5-10.1); COR NA(FOR HYPERGLY) 141 mmol/L (136-145); CREATININE 0.89 mg/dL (0.70-1.30); GLUCOSE 137 mg/dL (65-99); MAGNESIUM 2.1 mg/dL (2.0-2.9); POTASSIUM 4.6 mmol/L (3.5-5.1); SODIUM 140 mmol/L (136-145); TOTAL PROTEIN 6.7 g/dL (6.4-8.2); eGFR NON BLACK RACES > 60 (>60)
[2024-03-16 05:24] LABS: PLATELET MORPHOLOGY COMMENT NORMAL (NORMAL)
[2024-03-16 13:10] LABS: ABG ALLEN TEST POS; ABG BASE EXCESS 1.8 mmol/L (-2.0-2.0); ABG HCO3 27.2 mmol/L (22-26)
[2024-03-16 13:13] VITALS: TEMP 97.7
[2024-03-16 14:01] VITALS: BP 149/74; PULSE 94; RESP 25; O2SAT 92
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
== END 2024-03-16 14:35 | disposition home or self-care (01) ==
LOC: ICU
PROVIDERS: ADMIT Internal Medicine; ATTEND Internal Medicine